=== PATIENT | female | born 1965 | race Caucasian/White ===

== ENCOUNTER → 2017-05-04 15:52 | Outpatient (CLI) | payer OTHER, SELFPAY ==
[2017-05-04 18:12] LABS: Absolute Lymphocyte Count 2.91 X10^3/ul (0.83-4.51); Absolute Neutrophil Count 4.2 X10^3/uL (2.0-7.7); Basophil# 0.02 X10^3/uL; Basophil% 0.3 % (0-1); Eosinophil# 0.17 X10^3/uL; Eosinophils% 2.1 % (0-5); Hemoglobin 14.6 g/dl (12.0-15.0); Lymphocyte # 2.91 X10^3/ul (4.0); Lymphocyte % 36.4 % (19-41); Mean Corp Hgb Conc 33.2 g/gl (32-36); Mean Corpuscular Hgb 30.6 pg (27.0-32.0); Mean Corpuscular Volume 92.2 fL (81-99); Mean Platelet Vol. 11.5 fl (6.2-12.0); Monocyte# 0.66 X10^3/uL; Monocyte% 8.3 % (0-10); Neutrophil # 4.21 X10^3/uL (2.7-7.7); Neutrophil % 52.6 % (47-70); Platelet Count 248 K/mm3 (150-450); RBC Distribution Width CV 13.3 % (11.6-14.6); RBC Distribution Width SD 44.3 fl (35.1-43.9); Red Blood Count 4.77 M/mm3 (4.2-5.4)
[2017-05-04 18:17] LABS: POSITIVE COUNT NO; POSITIVE DIFFERENTIAL NO; POSITIVE MORPHOLOGY NO
[2017-05-04 18:34] LABS: Anion Gap 8 (5-15); BUN 11 mg/dL (7-18); BUN/Creat Ratio 11.3 RATIO (10-20); Calcium,Total 8.9 mg/dL (8.5-10.1); Chloride 101 mmol/L (98-107); Creatinine, Serum 0.97 mg/dL (0.55-1.02); EST Glomerular Filtration Rate 65 mL/min (>60); Est Glom Filt Rate - Afr Amer 78 mL/min (>60); Glucose 99 mg/dL (74-106); Potassium 3.6 mmol/L (3.5-5.1); Sodium Level 137 mmol/L (136-145); Thyroid Stim Hormone (TSH) 1.23 uIU/mL (0.358-3.74)
== END ==
PROVIDERS: Visit Provider Family Medicine
DX: I10 Essential (primary) hypertension (principal); F32.9 Major depressive disorder, single episode, unspecified
CPT/HCPCS: 36415; 80048; 84443; 85025

== ENCOUNTER → 2017-11-25 16:44 | Outpatient (CLI) | payer OTHER, SELFPAY ==
[2017-11-25 17:48] LABS: Absolute Lymphocyte Count 3.14 X10^3/ul (0.83-4.51); Absolute Neutrophil Count 4.3 X10^3/uL (2.0-7.7); Basophil# 0.03 X10^3/uL; Basophil% 0.4 % (0-1); Eosinophil# 0.23 X10^3/uL; Eosinophils% 2.8 % (0-5); Hematocrit 40.9 % (37-47); Hemoglobin 13.8 g/dl (12.0-15.0); Lymphocyte # 3.14 X10^3/ul (4.0); Lymphocyte % 37.9 % (19-41); Mean Corp Hgb Conc 33.7 g/gl (32-36); Mean Corpuscular Hgb 30.7 pg (27.0-32.0); Mean Corpuscular Volume 91.1 fL (81-99); Mean Platelet Vol. 11.1 fl (6.2-12.0); Monocyte# 0.57 X10^3/uL; Monocyte% 6.9 % (0-10); Neutrophil % 51.8 % (47-70); Platelet Count 243 K/mm3 (150-450); RBC Distribution Width CV 13.2 % (11.6-14.6); Red Blood Count 4.49 M/mm3 (4.2-5.4); White Blood Count 8.3 K/mm3 (4.4-11.0)
[2017-11-25 17:50] LABS: POSITIVE COUNT NO; POSITIVE DIFFERENTIAL NO; POSITIVE MORPHOLOGY NO
[2017-11-25 18:01] LABS: AST(SGOT) 16 U/L (15-37); Alanine Aminotransfer ALT/SGPT 27 U/L (13-56); Albumin, Serum 3.8 g/dL (3.2-5.0); Alkaline Phosphatase 105 U/L (45-117); Anion Gap 11 (5-15); BUN 15 mg/dL (7-18); BUN/Creat Ratio 17.9 RATIO (10-20); Calcium,Total 8.8 mg/dL (8.5-10.1); Chloride 101 mmol/L (98-107); Creatinine, Serum 0.84 mg/dL (0.55-1.02); EST Glomerular Filtration Rate 77 mL/min (>60); Est Glom Filt Rate - Afr Amer 93 mL/min (>60); Globulin 3.8 g/dL (2.2-4.2); Glucose 82 mg/dL (74-106); Potassium 3.3 mmol/L (3.5-5.1); Protein, Total 7.6 g/dL (6.4-8.2); Sodium Level 137 mmol/L (136-145); Thyroid Stim Hormone (TSH) 1.65 uIU/mL (0.358-3.74)
== END ==
PROVIDERS: Family Provider Family Medicine; PCP Family Medicine; Visit Provider Family Medicine
DX: R53.81 Other malaise (principal); R53.83 Other fatigue
CPT/HCPCS: 36415; 80053; 84443; 85025

== ENCOUNTER → 2018-08-10 | Outpatient (CLI) | payer OTHER, SELFPAY ==
[2016-06-16 10:06] VITALS: BMI 34.0
--- NOTE | 2018-08-10 17:03 | RAD_ITS ---
HISTORY: shoulder pain x 1 month Exam: Right Shoulder COMPARISON: CT scan of the chest was performed on June 16, 2016. The CT scan of the chest barely demonstrates the left glenohumeral joint. FINDINGS: # of images incl. paperwork: 4 XR Shoulder Min 2 Views: Osteophytic spurring is present on the humeral head. The humeral head is well-positioned within the glenoid fossa. No fracture or subluxation. The acromioclavicular joint is slightly widened with some osteophytes. The adjacent chest is unremarkable. RAD/Shoulder min 2 Views IMPRESSION: Arthritis to the left shoulder. Slight widening to the left acromioclavicular joint could be due to ligamentous injury. at 0227 Reported and signed by: Heber Hernandez MD Electronically Signed: Heber Hernandez MD at 2:26 EDT Tel , Service support ,
== END | disposition home or self-care (01) ==
PROVIDERS: Family Provider Family Medicine; PCP Family Medicine; Referring Provider Family Medicine; Visit Provider Family Medicine
DX: M25.512 Pain in left shoulder (principal)
CPT/HCPCS: 73030

== ENCOUNTER 2018-09-10 07:30 | Outpatient (RCR) | payer OTHER, SELFPAY ==
--- NOTE | 2018-08-13 14:53 | HP.PTEVAL_ITS ---
Patient's Visit Information RADHA BINGHAM is a 52 year old F referred to Physical Therapy by Naye Baldwin MD with a diagnosis of LEFT SHOULDER PAIN. Date of Evaluation: 08/13/18 Physical Therapist: Steven Salcido, PT, Cert MDT, OCS - Visit Plan Frequency: 2x /Week Duration: 4 Weeks Plan: PT INTERVENTIONS MODALITIES FOR PAIN RELEIVE MOD IRRITABILITY,GRADED STRENGTHENING RTC/SCAPULAR,POSTURAL EX'S,MANUAL THERAPY G-H/SCAPULAR - Subjective Findings: This 52 y/o female presents to physical therapy with left shoulder sprain. Patient has had left shoulder pain since about month weeding in flower beds. Patient paion located lateral deltoid region. Symptoms sharp AC region otherwise ache lateral deltoid. Patient is worse with ADL'S activities ,overhead activies above 90 degrees,self hygine. Symptoms can affect sleeping. Patient denies parathesai/tingling. Patie had x-ray OA and osteophyetes. Patient symptoms affects QOL . 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 SOCIAL: single - Pain Left Shoulder Pain Intensity (Out of 10): 7 Pain Intensity Range: 10 Comment: movement - Objective POSTURE: mild foward posture. PALAPTION: AC jont region ,lats insertion. NEURO: intact. AROM: shoulder flexion 140 degrees,abd 135 degrees pain ER ,90 degrees,IR L1. PROM: shoulder flexion/abd 155 pain at ER. MMT: infraspinatous/supraspinatous 4-5/ pain ,subscapularis 4/5,deltoid aterior 4- /5,lateral 3+/5 pain - Special Tests L Shoulder External Rotation Lag Test - RC Tear: Negative L Shoulder Supine Impingement Test - RC Tear: Negative L Shoulder Lift Off Test - Subscapular Tear: Negative L Shoulder Drop Sign - IS Test: Negative L Shoulder Empty Can - SS: Positive L Shoulder Belly Press - SupScap: Positive L Shoulder Neer - Impingement: Positive L Shoulder Garvin Sahil - Impingement: Positive - Goals Goal 1:: Independant with HEP Goal Time Frame: 4-6 Weeks Goal 2:: Patient to improve posture for ADL'S Goal Time Frame: 4-6 Weeks Goal 3:: Patient decrease pain left shoulder by 50% or greater to improve function with ADL'S Goal Time Frame: 4-6 Weeks Goal 4:: Patient to increase AROM shoulder WFL with less pain for ADL'S Goal Time Frame: 4-6 Weeks Goal 5:: Patient increase strength RTC and deltoide by 4/5 to improve function Goal Time Frame: 4-6 Weeks Goal 6:: Patient to improve quick dash by 5-10 points to improve QOL. Goal Time Frame: 4-6 Weeks - Rehabilitation Potential Physical Therapy Diagnosis: This patient has left signs of impingement with RTC tendonesis with pain decrease ROM,strength impairs ADL'S and housework tasks thus benifit from skilled PT Rehabilitation Potential: Good - Anticipated Interventions Patient/Client Instruction: Educate patient on: Condition, Plan of Care For the Purpose of:: To decrease pain, To increase ROM, To improve nutrient delivery to tissue, To increase oxygenation perfusion, To improve muscle performance and motor function, To improve ability to perform ADL's, To increase tolerance to activity/condition/position, To improve ability of physical actions for home/community/work/leisure, To improve gait and locomotor functions, To decrease soft tissue restriction, To increase flexibility/ROM, To reduce risk of recurrence, To improve ability to perform tasks related to life management Therapeutic Exercise to Include: Strength training, Postural training, Flexibilty training, Active ROM, Scapular Strength/Stabilization Comment: RTC For the Purpose of:: To decrease pain, To increase ROM, To improve muscle performance and motor function, To improve ability to perform ADL's, To increase tolerance to activity/condition/position, To improve ability of physical actions for home/community/work/leisure, To improve health of tissue, To decrease soft tissue restriction, To increase flexibility/ROM, To reduce risk of recurrence Manual Therapy Techniques to Include: Mobilization, Soft tissue mobilization For the Purpose of:: To decrease pain, To decrease swelling/inflammation, To increase ROM, To improve nutrient delivery to tissue, To increase oxygenation perfusion, To improve health of tissue, To decrease soft tissue restriction TENS: Yes IF ES: Yes Cryotherapy (ice pack, ice massage): Yes Thermo therapy (hot pack): Yes Ultrasound (thermal/non thermal): Yes For the Purpose of:: To decrease pain, To decrease swelling/inflammation, To increase ROM, To improve nutrient delivery to tissue, To increase oxygenation perfusion, To improve health of tissue, To decrease soft tissue restriction Thank you for the opportunity to evaluate your patient. For Medicare and Medicare HMO plans, please review the plan of care and approve it. It will need to be FAXED BACK to us at [phone] for Medicare purposes. For Medicare only, by signing this I certify the plan of care. Please let me know if there are questions or concerns regarding this plan of care. Physician Signature: Date:
--- NOTE | 2018-10-26 10:26 | HP.PTDCSUM ---
HP - PT D/C Summary It has been my pleasure to treat RADHA BINGHAM under orders from Naye Baldwin MD, for the diagnosis of LEFT SHOULDER PAIN for a total of 8 visit(s). Discharge Date: Please see the following information for a summary of their discharge status. - Subjective Subjective: Doing okay ..,min pain - Pain Left Shoulder Pain Intensity (Out of 10): 1 - Overall Improvement % Improvement: 80 - Objective Objective/Function: POSTURE: mild foward posture. AROM: flexion/abd 160 degrees o pain ,ER 90. MMT: RTC -supraspinatous 4/5 mild pain,especially deltoid 4-/5 mild pain. - impingement - Goals Goal 1:: Independant with HEP Goal 2:: Patient to improve posture for ADL'S Goal 3:: Patient decrease pain left shoulder by 50% or greater to improve function with ADL'S Goal 4:: Patient to increase AROM shoulder WFL with less pain for ADL'S Goal 5:: Patient increase strength RTC and deltoide by 4/5 to improve function Goal 6:: Patient to improve quick dash by 5-10 points to improve QOL. - Plan Plan: RECHECK IN 2 WEEKS. PROGRESSING WELL WITH AROM AND STRENGTH. DOING WELL WITH GOALS - D/C Information If there are questions or concerns regarding this patient's physical therapy, please feel free to call me at [phone]. Thank you for the referral of this patient. Sincerely, Steven Salcido, PT, Cert MDT, OCS
== END 2018-09-10 19:00 | disposition home or self-care (01) ==
LOC: PT 07:30
PROVIDERS: Family Provider Family Medicine; PCP Family Medicine; Referring Provider Family Medicine; Visit Provider Family Medicine
DX: S46.912D Strain of unspecified muscle, fascia and tendon at shoulder and upper arm level, left arm, subsequent encounter (principal)
CPT/HCPCS: 97014; 97035; 97110; 97162; G0283

== ENCOUNTER → 2019-04-22 09:45 | Outpatient (CLI) | payer OTHER, SELFPAY ==
[2016-06-16 10:06] VITALS: BMI 34.0
[2019-04-22 12:55] LABS: Anion Gap 7 (5-15); BUN 13 mg/dL (7-18); BUN/Creat Ratio 15.4 RATIO (10-20); Calcium,Total 9.4 mg/dL (8.5-10.1); Chloride 101 mmol/L (98-107); Creatinine, Serum 0.85 mg/dL (0.55-1.02); EST Glomerular Filtration Rate 75 mL/min (>60); Est Glom Filt Rate - Afr Amer 91 mL/min (>60); Glucose 96 mg/dL (74-106); Potassium 3.6 mmol/L (3.5-5.1); Sodium Level 137 mmol/L (136-145)
== END ==
PROVIDERS: PCP Family Medicine; Visit Provider Family Medicine
DX: I10 Essential (primary) hypertension (principal)
CPT/HCPCS: 36415; 80048

== ENCOUNTER → 2020-04-30 10:14 | Outpatient (CLI) | payer OTHER, SELFPAY ==
[2020-04-30 12:41] LABS: Anion Gap 8 (5-15); BUN 15 mg/dL (7-18); BUN/Creat Ratio 16.8 RATIO (10-20); Chloride 100 mmol/L (98-107); Cholesterol 260 mg/dL (200); Creatinine, Serum 0.89 mg/dL (0.55-1.02); EST Glomerular Filtration Rate 71 mL/min (>60); Est Glom Filt Rate - Afr Amer 85 mL/min (>60); Glucose 116 mg/dL (74-106); High Density Lipoprotein 53 mg/dL; Potassium 2.9 mmol/L (3.5-5.1); Sodium Level 136 mmol/L (136-145); Triglycerides 202 mg/dL; Very Low Density Lipoprotein 40 mg/dL (5-40)
== END ==
PROVIDERS: PCP Family Medicine; Referring Provider Family Medicine; Visit Provider Family Medicine
DX: I10 Essential (primary) hypertension (principal)
CPT/HCPCS: 36415; 80048; 80061

== ENCOUNTER → 2020-05-21 08:31 | Outpatient (CLI) | payer OTHER, SELFPAY ==
[2016-06-16 10:06] VITALS: BMI 34.0
[2020-05-21 10:14] LABS: Potassium 3.3 mmol/L (3.5-5.1)
== END ==
PROVIDERS: PCP Family Medicine; Referring Provider Family Medicine; Visit Provider Family Medicine
DX: E87.6 Hypokalemia (principal)
CPT/HCPCS: 36415; 84132

== ENCOUNTER → 2020-06-04 09:48 | Outpatient (CLI) | payer OTHER, SELFPAY ==
[2016-06-16 10:06] VITALS: BMI 34.0
[2020-06-04 12:53] LABS: Anion Gap 7 (5-15); BUN 14 mg/dL (7-18); BUN/Creat Ratio 15.6 RATIO (10-20); Calcium,Total 9.5 mg/dL (8.5-10.1); Chloride 100 mmol/L (98-107); EST Glomerular Filtration Rate 70 mL/min (>60); Est Glom Filt Rate - Afr Amer 85 mL/min (>60); Glucose 116 mg/dL (74-106); Potassium 3.9 mmol/L (3.5-5.1); Sodium Level 135 mmol/L (136-145)
== END ==
PROVIDERS: PCP Family Medicine; Referring Provider Family Medicine; Visit Provider Family Medicine
DX: E87.6 Hypokalemia (principal)
CPT/HCPCS: 36415; 80048

== ENCOUNTER → 2020-08-01 10:22 | Outpatient (CLI) | payer OTHER, SELFPAY ==
[2016-06-16 10:06] VITALS: BMI 34.0
--- NOTE | 2020-08-01 10:25 | BD_ITS ---
STUDY: DUAL ENERGY X-RAY ABSORPTIOMETRY / DXA REASON FOR EXAM: Female, 54 years old. V76.12ScreeningBONE DENSITY REASON FOR EXAM TECHNIQUE: Bone Mineral Density (BMD) measurements of lumbar spine and bilateral hips were obtained. COMPARISON: None. FINDINGS: Lumbar Spine (L1-L4): g/cm2 (1.191) / T-score (0.2) / Z-score (0.8) Findings are suggestive of normal bone density with a low fracture risk. Left Femur Total: g/cm2 (0.941) / T-score (-0.5) / Z-score (0.0) Left Femoral Neck: g/cm2 (0.868) / T-score (-1.2) / Z-score (-0.3) Right Femur Total: g/cm2 (0.921) / T-score (-0.7) / Z-score (-0.1) Right Femoral Neck: g/cm2 (0.868) / T-score (-1.2) / Z-score (-0.3) BD/Dexa Bone Density Study IMPRESSION: The patient is considered osteopenic as outlined below according to World Sanjiv Organization (WHO) criteria with a low fracture risk. Reference Information: The T-score is the number of standard deviations above or below the standard which is normal for young adults at their peak bone mineral density. The World Health Organization (WHO) interprets the T-scores as follows: Above -1 Normal bone density Between -1 and -2.5 Osteopenia Equal to / or below -2.5 Osteoporosis As a practical clinical guideline, osteopenia may be graded as follows: Mild -1 through -1.5 Moderate -1.6 through -2.0 Severe -2.1 through -2.4 The Z-score is the number of standard deviations above or below age-matched controls. A Z-score of less than -1.5 would be considered abnormal. References: 1. NIH Osteoporosis and Related Bone Diseases www osteo.org 2. International Society for Clinical Densitometry www iscd.org 3. National Osteoporosis Foundation www nof.org Electronically Signed: Jovany Guerrier MD at 15:44 EDT , Service support ,
--- NOTE | 2020-08-01 10:43 | BI_ITS ---
MAMMOGRAPHY - BILATERAL SCREENING REASON FOR EXAM: Female, 54 years old. Routine annual screening examination. PERTINENT HISTORY: Non-contributory. TECHNIQUE: Digital bilateral breast kamran (3D mammographic acquisition) in the CC and MLO projections. 2-D mediolateral oblique (MLO) and craniocaudad (CC) views of both breasts were obtained. CAD: Full Field Digital Mammography with Computer Added Detection was performed. COMPARISON: Comparison is made with prior study dated 10/26/2015 and 09/02/2012. FINDINGS: Breast Composition: There are scattered areas of fibroglandular density. There are no dominant masses or suspicious calcifications. No other significant abnormalities are identified. There has been no significant change since the prior study. BI/SCREENING MAMM (CAD), BILAT IMPRESSION: Stable bilateral screening mammogram. Yearly follow-up mammogram recommended. (A) ASSESSMENT CATEGORY: BIRADS Category 1: Negative. A letter regarding these results will be sent to the patient by the facility within 30 days. Approximately 10% of breast cancers are not detected by mammography. A normal mammogram should not delay biopsy of a clinically suspicious abnormality. [id number] Electronically Signed: Jovany Guerrier MD at 11:40 EDT , Service support ,
== END ==
PROVIDERS: PCP Family Medicine; Referring Provider Family Medicine; Visit Provider Family Medicine
DX: Z12.31 Encounter for screening mammogram for malignant neoplasm of breast (principal); N95.9 Unspecified menopausal and perimenopausal disorder
CPT/HCPCS: 77067; 77080

== ENCOUNTER → 2020-10-22 08:11 | Outpatient (CLI) | payer OTHER, SELFPAY ==
[2020-10-22 10:22] LABS: Anion Gap 7 (5-15); BUN 14 mg/dL (7-18); BUN/Creat Ratio 16.2 RATIO (10-20); Chloride 102 mmol/L (98-107); Creatinine, Serum 0.87 mg/dL (0.55-1.02); EST Glomerular Filtration Rate 73 mL/min (>60); Est Glom Filt Rate - Afr Amer 88 mL/min (>60); Glucose 110 mg/dL (74-106); Potassium 3.7 mmol/L (3.5-5.1); Sodium Level 137 mmol/L (136-145)
== END ==
PROVIDERS: PCP Family Medicine; Referring Provider Family Medicine; Visit Provider Family Medicine
DX: I10 Essential (primary) hypertension (principal)
CPT/HCPCS: 36415; 80048

== ENCOUNTER → 2020-10-24 07:50 | Outpatient (CLI) | payer OTHER, SELFPAY ==
[2020-10-24 10:42] LABS: AST(SGOT) 16 U/L (15-37); Alanine Aminotransfer ALT/SGPT 26 U/L (13-56); Cholesterol 259 mg/dL (200); High Density Lipoprotein 51 mg/dL; Triglycerides 246 mg/dL; Very Low Density Lipoprotein 49 mg/dL (5-40)
== END ==
PROVIDERS: PCP Family Medicine; Referring Provider Family Medicine; Visit Provider Family Medicine
DX: E78.00 Pure hypercholesterolemia, unspecified (principal)
CPT/HCPCS: 36415; 80061; 84450; 84460

== ENCOUNTER → 2021-01-24 07:07 | Outpatient (CLI) | payer OTHER, SELFPAY ==
[2021-01-24 10:55] LABS: AST(SGOT) 15 U/L (15-37); Alanine Aminotransfer ALT/SGPT 28 U/L (13-56); Cholesterol 152 mg/dL (200); High Density Lipoprotein 55 mg/dL; Triglycerides 158 mg/dL; Very Low Density Lipoprotein 32 mg/dL (5-40)
== END ==
PROVIDERS: PCP Family Medicine; Referring Provider Family Medicine; Visit Provider Family Medicine
DX: E78.2 Mixed hyperlipidemia (principal)
CPT/HCPCS: 36415; 80061; 84450; 84460

== ENCOUNTER 2021-05-01 10:31 | Outpatient (CLI) | payer OTHER, SELFPAY ==
[2021-05-01 12:35] LABS: Anion Gap 9 (5-15); BUN 17 mg/dL (7-18); BUN/Creat Ratio 20.4 RATIO (10-20); Calcium,Total 9.3 mg/dL (8.5-10.1); Chloride 101 mmol/L (98-107); Creatinine, Serum 0.83 mg/dL (0.55-1.02); EST Glomerular Filtration Rate 76 mL/min (>60); Est Glom Filt Rate - Afr Amer 92 mL/min (>60); Glucose 98 mg/dL (74-106); Potassium 3.4 mmol/L (3.5-5.1); Sodium Level 136 mmol/L (136-145)
== END 2021-05-01 23:59 | disposition home or self-care (01) ==
LOC: MFPLAB 10:32
PROVIDERS: PCP Family Medicine; Referring Provider Family Medicine; Visit Provider Family Medicine
DX: I10 Essential (primary) hypertension (principal)
CPT/HCPCS: 36415; 80048

== ENCOUNTER → 2021-08-02 | Outpatient (CLI) | payer OTHER, SELFPAY ==
--- NOTE | 2021-08-02 07:55 | BI_ITS ---
MAMMOGRAPHY - BILATERAL SCREENING REASON FOR EXAM: Female, 55 years old. Routine annual screening examination. PERTINENT HISTORY: Non-contributory. TECHNIQUE: Digital bilateral breast debbie (3D mammographic acquisition) in the CC and MLO projections. 2-D mediolateral oblique (MLO) and craniocaudad (CC) views of both breasts were obtained. CAD: Full Field Digital Mammography with Computer Added Detection was performed. COMPARISON: Mammogram from 08/01/2020, 10/26/2015, 09/02/2012, 09/02/2011. FINDINGS: Breast Composition: There are scattered areas of fibroglandular density. There is a 8 mm rounded mass, with partially obscured borders adjacent to a benign-appearing calcification in the right upper central breast, middle depth, approximately 5 cm posterior to nipple. Further assessment with spot compression views and ultrasound is recommended. No other significant abnormalities are identified. BI/SCRN MAMM (CAD)W/DEBBIE BILAT IMPRESSION: Further imaging evaluation recommended, as described above. (E) Recall Side: Right Breast ASSESSMENT CATEGORY: BIRADS Category 0: Incomplete. Need additional imaging evaluation. A letter regarding these results will be sent to the patient by the facility within 30 days. Approximately 10% of breast cancers are not detected by mammography. A normal mammogram should not delay biopsy of a clinically suspicious abnormality. [id number] Electronically Signed: Donnell Heath, at 15:42 EDT ,
== END | disposition home or self-care (01) ==
LOC: OPBI 07:54
PROVIDERS: PCP Family Medicine; Referring Provider Family Medicine; Visit Provider Family Medicine
DX: Z12.31 Encounter for screening mammogram for malignant neoplasm of breast (principal)
CPT/HCPCS: 77063; 77067

== ENCOUNTER → 2021-08-07 | Outpatient (CLI) | payer OTHER, SELFPAY ==
--- NOTE | 2021-08-07 09:14 | BI_ITS ---
MAMMOGRAPHY - UNILATERAL DIAGNOSTIC: RIGHT BREAST REASON FOR EXAM: Female, 55 years old. Abnormal screening mammogram. PERTINENT HISTORY: Non-contributory. TECHNIQUE: Compression spot views in the mediolateral oblique and craniocaudad views were obtained. CAD: Full Field Digital Mammography with Computer Added Detection was performed. COMPARISON: Comparison is made with prior study dated 08/02/2021. FINDINGS: Breast Composition: There are scattered areas of fibroglandular density. Stable 7 mm nodule with calcification within the. Correlation with ultrasound is recommended. No other significant abnormalities are identified. BI/DIAG MAMM W/CAD, UNILAT IMPRESSION: Stable unilateral diagnostic mammogram. Correlation with targeted ultrasound is recommended. ASSESSMENT CATEGORY: BIRADS Category 0: Incomplete. Need additional imaging evaluation. A letter regarding these results will be sent to the patient by the facility within 30 days. Approximately 10% of breast cancers are not detected by mammography. A normal mammogram should not delay biopsy of a clinically suspicious abnormality. Electronically Signed: Jovany Guerrier MD at 10:12 EDT ,
--- NOTE | 2021-08-07 09:14 | US_ITS ---
STUDY: ULTRASOUND BREAST - RIGHT REASON FOR EXAM: Female, 55 years old. Abnormal screening mammogram. TECHNIQUE: Axial and longitudinal images of the RIGHT breast were performed with a high resolution ultrasound transducer. # OF IMAGES: 24 COMPARISON: Comparison is made with prior mammogram done earlier today as well as prior mammogram dated 08/02/2021. FINDINGS: RIGHT Breast: There is a 4 mm x 5 mm x 3 mm hypoechoic solid nodule at the 6 o''clock position of the breast at 3 cm from nipple. A tiny calcification is seen within it. There is also evidence of a 6 mm x 6 mm x 4 mm cyst at the 12 o''clock position of the breast at 2 cm from nipple. US/Breast Limited Unilateral IMPRESSION: 4 mm x 5 mm x 3 mm hypoechoic solid nodule at the 6 o''clock position of the breast at 3 cm from nipple with focal calcific deposit. 6 mm x 6 mm x 4 mm cyst at the 12 o''clock position of the breast at 2 cm from the nipple. ASSESSMENT CATEGORY: BIRADS Category 2: Benign. A letter regarding these results will be sent to the patient by the facility within 30 days. Electronically Signed: Jovany Guerrier MD at 10:16 EDT ,
== END | disposition home or self-care (01) ==
LOC: OPBI 09:10
PROVIDERS: PCP Family Medicine; Visit Provider Family Medicine
DX: R92.1 Mammographic calcification found on diagnostic imaging of breast (principal); R92.2 Inconclusive mammogram
CPT/HCPCS: 76642; 77065

== ENCOUNTER → 2021-11-01 | Outpatient (CLI) | payer OTHER, SELFPAY ==
[2021-11-01 12:01] LABS: Absolute Lymphocyte Count 2.47 X10^3/uL (0.83-4.51); Absolute Neutrophil Count 4.1 X10^3/uL (2.0-7.7); Basophil# 0.04 X10^3/uL; Basophil% 0.6 % (0-1); Eosinophil# 0.14 X10^3/uL; Eosinophils% 1.9 % (0-5); Erythrocyte Sedimentation Rate 15 mm/hr (0-30); Hematocrit 42.7 % (37-47); Hemoglobin 14.1 g/dL (12.0-15.0); Lymphocyte # 2.47 X10^3/ul (0.83-4.51); Lymphocyte % 34.2 % (19-41); Mean Corpuscular Hgb 29.9 pg (27.0-32.0); Mean Corpuscular Volume 90.7 fL (81-99); Mean Platelet Vol. 11.3 fl (6.2-12.0); Monocyte# 0.47 X10^3/uL; Monocyte% 6.5 % (0-10); NRBC Flagged by Analyzer 0 % (0-5); Neutrophil # 4.07 X10^3/uL (2.7-7.7); Neutrophil % 56.4 % (47-70); Platelet Count 242 K/mm3 (150-450); RBC Distribution Width SD 42.9 fl (35.1-43.9); Red Blood Count 4.71 M/mm3 (4.2-5.4); White Blood Count 7.2 K/mm3 (4.4-11.0)
[2021-11-01 12:30] LABS: AST(SGOT) 19 U/L (15-37); Alanine Aminotransfer ALT/SGPT 29 U/L (13-56); Albumin, Serum 3.9 g/dL (3.2-5.0); Alkaline Phosphatase 100 U/L (45-117); Anion Gap 9 (5-15); BUN 15 mg/dL (7-18); BUN/Creat Ratio 17.2 RATIO (10-20); Calcium,Total 9.1 mg/dL (8.5-10.1); Chloride 102 mmol/L (98-107); Cholesterol 150 mg/dL (200); Creatinine, Serum 0.87 mg/dL (0.55-1.02); EST Glomerular Filtration Rate 72 mL/min (>60); Est Glom Filt Rate - Afr Amer 87 mL/min (>60); Globulin 3.8 g/dL (2.2-4.2); Glucose 90 mg/dL (74-106); High Density Lipoprotein 54 mg/dL; Potassium 3.7 mmol/L (3.5-5.1); Protein, Total 7.7 g/dL (6.4-8.2); Sodium Level 138 mmol/L (136-145); Thyroid Stim Hormone (TSH) 1.23 uIU/mL (0.358-3.74); Triglycerides 235 mg/dL; Very Low Density Lipoprotein 47 mg/dL (5-40)
== END | disposition home or self-care (01) ==
LOC: MFPLAB 09:54
PROVIDERS: PCP Family Medicine; Referring Provider Family Medicine; Visit Provider Family Medicine
DX: R53.81 Other malaise (principal); I10 Essential (primary) hypertension
CPT/HCPCS: 36415; 80053; 80061; 84443; 85025; 85652

== ENCOUNTER 2021-12-20 12:00 | Emergency (ER) | payer OTHER, SELFPAY ==
[2021-12-20 12:02] VITALS: BP 134/97; PULSE 92; RESP 18; TEMP 35.9; O2SAT 98; BMI 33.0
--- NOTE | 2021-12-20 12:17 | CT_ITS ---
STUDY: CT BRAIN WITHOUT CONTRAST REASON FOR EXAM: Female, 56 years old. History of fall RADIATION DOSAGE (If Supplied By Facility): CTDIvol = ( 44.99 ) mGy, DLP = ( 812.98 ) mGycm TECHNIQUE: Transaxial CT imaging of the brain was performed without administration of intravenous contrast material. Individualized dose optimization techniques were used for this CT. COMPARISON: No relevant priors. FINDINGS: Normal soft tissue structures. Normal calvarium. Normal size ventricles and extra-axial spaces for the patient''s age. Normal white matter tracts of the cerebral hemispheres. Normal basal ganglia and thalami. Normal brainstem. Normal cerebellum. There is no intracranial hemorrhage. There are no findings of an acute ischemic infarction. Normal visualized paranasal sinuses. CT/Brain/Head without Contrast IMPRESSION: Normal unenhanced CT scan of the brain. Electronically Signed: Jovany Guerrier MD at 12:50 EDT ,
--- NOTE | 2021-12-20 12:17 | CT_ITS ---
STUDY: CT FACIAL BONES WITHOUT CONTRAST REASON FOR EXAM: Female, 56 years old. Injury due to a fall. RADIATION DOSAGE (If Supplied By Facility): CTDIvol = ( 29.38 ) mGy, DLP = ( 525.42 ) mGycm TECHNIQUE: The patient was scanned in a multi detector CT scanner. Sagittal and coronal images were reconstructed. Individualized dose optimization techniques were used for this CT. COMPARISON: None. FINDINGS: Normal soft tissue structures. Normal orbital braden and orbital contents. Normal nasal bones and anterior nasal spine. Normal facial bones. There is no demonstrated fracture. Normal visualized paranasal sinuses. CT/Sinus/Facial Bone IMPRESSION: Normal unenhanced CT of the facial bones. Electronically Signed: Jovany Guerrier MD at 12:52 EDT ,
--- NOTE | 2021-12-20 12:17 | ED.VIS.FALL ---
HPI HPI - Fall History of Present Illness Chief Complaint: Fall Informant: patient Occured/Mechanism Occurred: Today Pain/Injury Pain Location: head, face, upper extremity and lower extremity Quality of Pain: Aching Current Severity: Mild Maximum Severity: Moderate Associated Symptoms Associated Symptoms: Negative for Loss of consciousness Narrative Narrative: Patient presents after fall at home. She was getting her mail and tripped on the curb falling forward. She does not believe she lost consciousness. She is abrasions to the face. She states her teeth feel sore but they did not feel loose. She has some mild abrasions to the anterior knees with some bruising and tenderness to the thenar eminence of both hands. She took ibuprofen prior to arrival. [facility] Medical History Depression HLD (hyperlipidemia) HTN (hypertension) Home Medications amlodipine 2.5 mg tablet 2.5 mg PO QHS 06/20/15 [History Last Taken Unknown] bupropion HCl 100 mg tablet 200 mg PO QHS 06/20/15 [History Last Taken Unknown] esterified estrogens-methyltestosterone 0.625 mg-1.25 mg tablet 1 tab PO DAILY 06/20/15 [History Last Taken Unknown] hydrochlorothiazide 25 mg tablet 25 mg PO DAILY 06/20/15 [History Last Taken Unknown] esbvwwzxnwor-Tx-yatr-minerals (Multiple Vitamin, Womens tablet) 1 ea PO DAILY 06/20/15 [History Last Taken Unknown] sertraline 100 mg tablet 200 mg PO QHS 06/20/15 [History Last Taken Unknown] cetirizine 10 mg capsule (Zyrtec) 10 mg PO DAILY 05/30/16 [History Last Taken Unknown] hydrocodone-acetaminophen 5-325mg 5mg-325mg 1 - 2 tab PO Q6H PRN PRN Mild-Mod Pain (1-5/10) ##60 06/10/16 [Rx Last Taken Unknown] oxycodone 10 mg tablet,crush resistant,extended release 12 hr (OxyContin) 10 mg PO BID ##30 06/10/16 [Rx Last Taken Unknown] ondansetron HCl 4 mg tablet (Zofran) 4 - 8 mg PO Q6H PRN PRN Nausea ##30 06/11/16 [Rx Last Taken Unknown] amoxicillin 875 mg-potassium clavulanate 125 mg tablet 1 tab PO BID 06/16/16 [History Last Taken Unknown] fluconazole 100 mg tablet 100 mg PO DAILY 06/16/16 [History Last Taken Unknown] fluconazole 150 mg tablet (Diflucan) 150 mg PO Q3D 2 doses #2 tabs 02/26/21 [Rx Last Taken Unknown] Allergy/AdvReac Type Severity Reaction Status Date / Time oxycodone HCl [From Percocet] AdvReac Nausea Verified 12/20/21 12:01 Surgical History H/O: hysterectomy History of total bilateral knee replacement Hx of appendectomy Status post total right knee replacement Social History Smoking Status: Never smoker ROS ROS ED Constitutional Constitutional ED: Denies chills or fever(s) Eyes Eyes: Denies change in vision or discharge from eye(s) ENT ENT ED: Reports other Details: Facial abrasions and dental pain ; Denies discharge from eye(s), rhinorrhea or sore throat Cardiovascular Cardiovascular: Denies chest pain or palpitations Respiratory/Chest Respiratory/Chest: Denies cough or dyspnea Gastrointestinal Gastrointestinal: Denies abdominal pain, diarrhea, nausea or vomiting Genitourinary Genitourinary ED: Denies dysuria Musculoskeletal Musculoskeletal: Reports extremity pain; Denies back pain Integumentary Reports Abrasions; Denies rash Neurologic Neurologic: Reports headache(s); Denies weakness Allergic/Immunologic Allergic/Immunologic ED: Denies lip swelling or urticaria EXAM Physical Exam Const Vital Signs: 12/20/21 12:02 12/20/21 12:11 Temperature 96.7 F L Temperature Source Temporal Pulse Rate 92 Respiratory Rate 18 Respiratory Effort Normal Non-Labored Respiratory Depth Normal Respiratory Pattern Normal Blood Pressure 134/97 H Blood Pressure Mean 109 Pulse Ox 98 Oxygen Delivery Method Room Air Positive well nourished and well developed General Appearance ED: well developed HEENT Reports normocephalic HEENT Narrative: Abrasions inferolateral to the left eye. Extraocular movements are fully intact no bony tenderness noted. Small laceration noted to the inner surface of the left upper lip with mild edema. Teeth are stable. No C-spine tenderness. Eyes PERRL and EOMs intact bilaterally Neck supple Chest Wall inspection of chest normal and palpation of chest normal Resp normal respiratory effort and clear to auscultation bilaterally Cardio regular rate and regular rhythm GI normal to inspection, nondistended, normoactive bowel sounds Palpation: soft Extremity Extremity Narrative: Mild tenderness to the thenar eminence of both hands with no significant edema or abrasions. Full range of motion without difficulty. Superficial abrasion noted to the left anterior knee with underlying hematoma. Small hematoma/ecchymosis to the anterior right knee. No bony tenderness to the lower extremities with good range of motion. Neuro oriented x3 and no sensory deficits noted Sensorium / Orientation: alert Motor Exam: strength 5/5 throughout Psych mental status grossly normal Skin Skin Narrative: Abrasions as noted above. MDM MDM MDM Narrative Medical decision making narrative: Patient sent for CT scan of the head and facial bones. Radiography Diagnostic Testing: Clinical Impression(s) from Imaging Studies Brain CT 12/20/21 12:17 IMPRESSION: Normal unenhanced CT scan of the brain. Electronically Signed: Jovany Guerrier MD at 12:50 EDT , Facial/Sinus 12/20/21 12:17 IMPRESSION: Normal unenhanced CT of the facial bones. Electronically Signed: Jovany Guerrier MD at 12:52 EDT , Treatment and Re-Evaluation Narrative: CT scan of the head and facial bones reveal no acute fracture. No intracranial bleeding or edema noted. Test results are discussed with the patient. She will continue Tylenol or ibuprofen at home for pain. She does have a small laceration on the inner surface of her left upper lip. We discussed keeping this area clean but we do not suture intraoral injuries due to concern for infection. She voices understanding. We are attempting to contact the patient's primary care office to verify her last tetanus update. This will be done prior to the patient's discharge. Discharge Plan Triage Chief Complaint: Fall ED Provider: Hannah Appiah Dx/Rx/DC Orders Clinical Impression: Fall, Contusion of face, Intraoral laceration, CHI (closed head injury), Contusion, upper extremity, Contusion of lower extremity Instructions: ED Facial Contusion, ED Head Injury (Adult) Prescriptions: No Action fluconazole [Diflucan] 150 mg tablet 150 mg PO Q3D Qty: 2 0RF Rx Instructions: may repeat second dose 72 hrs after first dose if symptoms persist estrogens-methyltestosterone 1 EACH tablet 1 tab PO DAILY Label Comments: hormone sertraline 100 MG tablet 200 mg PO QHS Label Comments: mood amlodipine 2.5 MG tablet 2.5 mg PO QHS Label Comments: high blood pressure bupropion HCl 100 MG tablet 200 mg PO QHS Label Comments: mood hydrochlorothiazide 25 MG tablet 25 mg PO DAILY Label Comments: high blood pressure yypmumuxjcua-Kk-qsxo-minerals [Multiple Vitamin, Womens] 1 EACH tablet 1 ea PO DAILY Label Comments: supplement cetirizine [Zyrtec] 10 MG capsule 10 mg PO DAILY hydrocodone-acetaminophen 1 TABLET tablet 1 - 2 tab PO Q6H PRN PRN (Reason: Mild-Mod Pain (1-5)) Qty: 60 0RF oxycodone [OxyContin] 10 MG tablet 10 mg PO BID Qty: 30 0RF ondansetron HCl [Zofran] 4 MG tablet 4 - 8 mg PO Q6H PRN PRN (Reason: Nausea) Qty: 30 0RF fluconazole 100 MG tablet 100 mg PO DAILY Label Comments: amoxicillin-pot clavulanate 1 EACH tablet 1 tab PO BID Label Comments: Primary Care Provider: Naye Baldwin Referrals: Naye Baldwin MD [Primary Care Provider] - 1 Week Disposition Disposition: Home, Self Care
[2021-12-20] MEDS: Acetaminophen 500 MG Tablet 1000 MG PO (13:18)
[2021-12-20] MEDS: Diphth,Pertuss(Acell),Tet Vac 0.5 ML Vial IM (14:01)
[2021-12-20 14:19] VITALS: BP 120/81; PULSE 64; RESP 14; O2SAT 100
== END 2021-12-20 14:19 | disposition home or self-care (01) ==
PROVIDERS: Emergency Provider Emergency Medicine; PCP Family Medicine; Visit Provider Emergency Medicine
DX: S00.83XA Contusion of other part of head, initial encounter (principal); W10.1XXA Fall (on)(from) sidewalk curb, initial encounter; E78.5 Hyperlipidemia, unspecified; S80.211A Abrasion, right knee, initial encounter; I10 Essential (primary) hypertension; S80.212A Abrasion, left knee, initial encounter; F32.A Depression, unspecified; S09.90XA Unspecified injury of head, initial encounter; Z23 Encounter for immunization
CPT/HCPCS: 70450; 70486; 90471; 90715; 99283

== ENCOUNTER → 2022-05-05 | Outpatient (CLI) | payer OTHER, SELFPAY ==
[2022-05-05 12:35] LABS: Anion Gap 9 (5-15); BUN 14 mg/dL (7-18); BUN/Creat Ratio 17.1 RATIO (10-20); Calcium,Total 9.4 mg/dL (8.5-10.1); Chloride 101 mmol/L (98-107); Creatinine, Serum 0.82 mg/dL (0.55-1.02); EST Glomerular Filtration Rate 77 mL/min (>60); Est Glom Filt Rate - Afr Amer 94 mL/min (>60); Glucose 90 mg/dL (74-106); Potassium 3.3 mmol/L (3.5-5.1); Sodium Level 138 mmol/L (136-145)
== END | disposition home or self-care (01) ==
LOC: MFPLAB 10:19
PROVIDERS: PCP Family Medicine; Visit Provider Family Medicine
DX: I10 Essential (primary) hypertension (principal)
CPT/HCPCS: 36415; 80048

== ENCOUNTER → 2022-08-04 | Outpatient (CLI) | payer OTHER, SELFPAY ==
--- NOTE | 2022-08-04 07:46 | BI_ITS ---
MAMMOGRAPHY - BILATERAL SCREENING REASON FOR EXAM: Female, 56 years old. Routine annual screening examination. PERTINENT HISTORY: Non-contributory. TECHNIQUE: Digital bilateral breast debbie (3D mammographic acquisition) in the CC and MLO projections. 2-D mediolateral oblique (MLO) and craniocaudad (CC) views of both breasts were obtained. CAD: Full Field Digital Mammography with Computer Added Detection was performed. COMPARISON: Comparison is made with prior study dated August 02, 2021 and August 01, 2020 as well as right breast diagnostic mammogram dated August 07, 2021. FINDINGS: Breast Composition: There are scattered areas of fibroglandular density. There are no dominant masses or suspicious calcifications. Stable 7 mm nodule with calcification within it in the central portion of the right breast. No other significant abnormalities are identified. There has been no significant change since the prior study. BI/SCRN MAMM (CAD)W/DEBBIE BILAT IMPRESSION: Stable bilateral screening mammogram. Yearly follow-up mammogram recommended. (A) ASSESSMENT CATEGORY: BIRADS Category 2: Benign. A letter regarding these results will be sent to the patient by the facility within 30 days. Approximately 10% of breast cancers are not detected by mammography. A normal mammogram should not delay biopsy of a clinically suspicious abnormality. [id number] Electronically Signed: Jovany Guerrier MD at 8:52 EDT ,
== END | disposition home or self-care (01) ==
LOC: OPBI 07:44
PROVIDERS: PCP Family Medicine; Referring Provider Family Medicine; Visit Provider Family Medicine
DX: Z12.31 Encounter for screening mammogram for malignant neoplasm of breast (principal)
CPT/HCPCS: 77063; 77067

== ENCOUNTER → 2022-11-10 | Outpatient (CLI) | payer OTHER, SELFPAY ==
[2022-11-10 12:53] LABS: AST(SGOT) 19 U/L (15-37); Alanine Aminotransfer ALT/SGPT 27 U/L (13-56); Anion Gap 9 (5-15); BUN 13 mg/dL (7-18); BUN/Creat Ratio 14.7 RATIO (10-20); Calcium,Total 9.7 mg/dL (8.5-10.1); Chloride 105 mmol/L (98-107); Cholesterol 143 mg/dL (200); Creatinine, Serum 0.88 mg/dL (0.55-1.02); EST Glomerular Filtration Rate 71 mL/min (>60); Est Glom Filt Rate - Afr Amer 85 mL/min (>60); Glucose 97 mg/dL (74-106); High Density Lipoprotein 61 mg/dL; Potassium 4.1 mmol/L (3.5-5.1); Sodium Level 139 mmol/L (136-145); Triglycerides 154 mg/dL; Very Low Density Lipoprotein 31 mg/dL (5-40)
== END | disposition home or self-care (01) ==
LOC: MFPLAB 09:50
PROVIDERS: PCP Family Medicine; Visit Provider Family Medicine
DX: I10 Essential (primary) hypertension (principal); E78.2 Mixed hyperlipidemia
CPT/HCPCS: 36415; 80048; 80061; 84450; 84460

== ENCOUNTER 2023-06-03 08:30 | Outpatient (RCR) | payer OTHER, SELFPAY ==
--- NOTE | 2023-05-05 11:31 | HP.PTEVAL_ITS ---
Patient's Visit Information Visit Information Visit Information: RADHA BINGHAM is a 57 year old F referred to Physical Therapy by Dr. Naye Baldwin MD with a diagnosis of BACK PAIN. Date of Evaluation: 05/05/23 Physical Therapist: Steven Salcido, PT, Cert MDT, OCS Visit Plan Frequency: 2x /Week Duration: 4 Weeks Plan: PT INTERVENTIONS EDIL EX'S ,PROGRESS TO DLS ,STM - MASSAGE GUN ,POSTURAL EX'S AND MODALTIES FOR PAIN Subjective Subjective: This 57 y/o female presents to physical therapy with back . Patient has back many years. Patient 2008 fell and fracture spine . Most recently pain worse past 2 weeks ,but had a bad episode of lumbar pain tried stretches from DR. Lesly ramesh . In Jan 2023 had injections in hip left side . 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 Alleviating factors nothing. Bowel /bladder-. Coughing/sneezing + Denies paresthesia/tingling-. Plan to see Thursday. Patient sleeping okay night due to pain. Patient has had PT in past . Patient has bilateral TKA in past. Patient pain affects QOL/function. Patient goals to decrease pain. VOCATION: retired SOCIAL: single Pain Bilateral Back: Pain Intensity (Out of 10): 4 Pain Intensity Range: 10 Objective Objective: POSTURE: mild forward posture GAIT : reciprocal pattern PLAPTION: tender multifidus ,paraspinals ,erector spinalis NEURO: denies paresthesia/tingling ,reflexes L4-5,L5-S1 1/3 LUMBAR ROM: flexion min/mod loss pain ,extension min loss ,side glides right mod loss ,left min loss MMT: quads/hams 4/5 ,hip flexion 4-/5 pain right lumbar FLEXABILITY: hamstrings WFL ,piriformis WFL Special Tests L/S Slump test left side: Negative L/S Slump test right side: Negative L/S Left Straight Leg Raise: Negative L/S Right Straight Leg Raise: Negative Lumbar Standing: Flexion - Mechanical Response: No effect Lumbar Standing: Flexion - Symptoms During Testing: Increases Lumbar Standing: Flexion - Symptoms After Testing: Worse Lumbar Standing: Extension - Mechanical Response: No effect Lumbar Standing: Extension - Symptoms During Testing: Decreases Lumbar Standing: Extension - Symptoms After Testing: Better Lumbar Standing: Right Side Glides - Mechanical Response: No effect Lumbar Standing: Right Side [place] - Symptoms During Testing: Increases Lumbar Standing: Right Side [place] - Symptoms After Testing: Worse Lumbar Standing: Left Side [place] - Mechanical Response: No effect Lumbar Standing: Left Side [place] - Symptoms During Testing: No effect Lumbar Standing: Left Side [place] - Symptoms After Testing: No effect Lumbar Lying: Flexion - Mechanical Response: No effect Lumbar Lying: Flexion - Symptoms During Testing: Increases Lumbar Lying: Flexion - Symptoms After Testing: Worse Lumbar Lying: Extension - Mechanical Response: No effect Lumbar Lying: Extension - Symptoms During Testing: Decreases Lumbar Lying: Extension - Symptoms After Testing: Better Balance/Special Test Scores Oswestry Low Back Score: 28 Goals Goal 1:: I with HEP for back Goal Time Frame: 4-6 Weeks Goal 2:: Patient to demonstrate 50% improvement with increase function and less pain. Goal Time Frame: 4-6 Weeks Goal 3:: Patient to improve lumbar ROM for function of recovery to lift or tie shoes Goal Time Frame: 4-6 Weeks Goal 4:: Patient to improve back oswestry score by 5 points to improve QOL and function Goal Time Frame: 4-6 Weeks Goal 5:: Patient posture and body mechanics 80% of the time Goal Time Frame: 4-6 Weeks Rehabilitation Potential Physical Therapy Diagnosis: This patent has possible derangement with pain worse with flexion bending and better with extension and posture ,symptoms worse with motion testing and positioning thus benefit from skilled PT Rehabilitation Potential: Good Anticipated Interventions Patient/Client Instruction: Educate patient on: Condition and Plan of Care For the Purpose of:: To decrease pain, To increase ROM, To improve muscle performance and motor function, To improve ability to perform ADL's, To increase tolerance to activity/condition/position, To improve ability of physical actions for home/community/work/leisure, To improve health of tissue, To decrease soft tissue restriction, To increase flexibility/ROM and To improve tolerance to ADL's Therapeutic Exercise to Include: Strength training, Endurance training, Body mechanics, Postural training, Flexibilty training, Active ROM and Dynamic Lumbar Stabilization For the Purpose of:: To decrease pain, To increase ROM, To improve muscle performance and motor function, To increase tolerance to activi ty/condition/position, To improve ability of physical actions for home/community/work/leisure, To improve gait and locomotor functions, To improve health of tissue, To decrease soft tissue restriction, To increase flexibility/ROM and To improve endurance Manual Therapy Techniques to Include: Soft tissue mobilization Comment: GUN MASSAGE For the Purpose of:: To decrease pain, To increase ROM, To improve muscle performance and motor function, To improve ability of physical actions for home/community/work/leisure, To improve health of tissue, To decrease soft tissue restriction and To increase flexibility/ROM TENS: Yes IF ES: Yes Cryotherapy (ice pack, ice massage): Yes Thermo therapy (hot pack): Yes Ultrasound (thermal/non thermal): Yes For the Purpose of:: To decrease pain, To increase ROM, To improve nutrient delivery to tissue, To increase oxygenation perfusion, To improve health of tissue and To decrease soft tissue restriction Text: Thank you for the opportunity to evaluate your patient. For Medicare and Medicare HMO plans, please review the plan of care and approve it. It will need to be FAXED BACK to us at [phone] for Medicare purposes. For Medicare only, by signing this I certify the plan of care. Please let me know if there are questions or concerns regarding this plan of care. Physician Signature: Date:
--- NOTE | 2023-09-25 11:51 | HP.PTDCSUM_ITS ---
Discharge Summary D/C summary: It has been my pleasure to treat RADHA BINGHAM referred by Dr. Naye Baldwin MD, with the diagnosis of BACK PAIN for a total of 6 visit(s). Discharge Date: Please see the following information for a summary of their discharge status. Subjective Subjective: Doing well .. Pain Bilateral Back: Pain Intensity (Out of 10): 0 Overall Improvement % Improvement: 60 Objective Objective/Function: D/C Goals Goal 1:: I with HEP for back Goal Progress: Goal Met Goal 2:: Patient to demonstrate 50% improvement with increase function and less pain. Goal Progress: Goal Met Goal 3:: Patient to improve lumbar ROM for function of recovery to lift or tie shoes Goal Progress: Goal Met Goal 4:: Patient to improve back oswestry score by 5 points to improve QOL and function Goal Progress: Goal Met Goal 5:: Patient posture and body mechanics 80% of the time Goal Progress: Goal Met Plan Plan: PT INTERVENTIONS EDIL EX'S ,PROGRESS TO DLS ,STM - MASSAGE GUN ,POSTURAL EX'S AND MODALTIES FOR PAIN D/C Information d/c sentence: If there are questions or concerns regarding this patient's physical therapy, pl ease feel free to call me at [phone]. Thank you for the referral of this patient. Sincerely, Steven Salcido, PT, Cert MDT, OCS Balance/Gait/Functional tests Balance/Special Test Scores Oswestry Low Back Score: 6 Improvement % Improvement: 60
== END 2023-06-03 19:00 | disposition home or self-care (01) ==
LOC: PT 08:30
PROVIDERS: PCP Family Medicine; Referring Provider Family Medicine; Visit Provider Family Medicine
DX: M54.9 Dorsalgia, unspecified (principal)
CPT/HCPCS: 97014; 97110; 97162; 97530; G0283

== ENCOUNTER 2023-08-13 16:30 | Outpatient (RCR) | payer OTHER, SELFPAY ==
--- NOTE | 2023-07-15 11:44 | HP.PTEVAL_ITS ---
Patient's Visit Information Visit Information Visit Information: RADHA BINGHAM is a 57 year old F referred to Physical Therapy by Dr. Winston Cortes DPM with a diagnosis of L achilles tendonopathy. Date of Evaluation: 07/15/23 Physical Therapist: Onofre Pulido DPT, OCS, CSCS Visit Plan Frequency: 3x /Week Duration: 2 Months Plan: 2-3x/week for 6-8(start 3) for rollout and stretch gastroc soleus and achilles, CFM to chilles, US nonthermal to L achilles. Eccentric strength to L achilles gastroc soleus. Progression to proprioception and home strength as pain improves. IE: given gastroc and soleus wall stretch 305x 2x/day, AP when sitting and recommended heel lift and given ling to HP store. ice massage as needed. Ensure appropriate activitiy modification Consider Radial pulse wave Subjective Subjective: I have achilles tendonitis. has burning pain with ambuilation back of L ankle. Insidious onet for several months. Enjoys walking dog which she is avoiding. Initially felt a bump in back of achilles and got worse. Comfortable at rest. Aggravated with walking alot. Trying ice. Trying pain cream which did help but it ledesma her skin. On meloxicam which may help, also takes advil/tylenol. Sleep is Ok. Worse walking, very tight first thing in am. 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 Getting up can hurt. Hobbies are sedentary. No regular exercise other than starting [employer] for [employer] Basic ADLS, all no problem. Pressure washed house on feet alot and it aggravated it. Got inserts which help a little bit. Aggravated 2 weeks ago at beach. Pain L achilles: Pain Intensity (Out of 10): 0 Pain Intensity Range: 0 and 7 Comment: worse walking alot Objective Objective: L avoidance of push off initially upon standing but smooths out well. Trasnfers I bed and chair. max tender over module in distal L achilles not present on R side. Pain with AROM PF, pain with passive ROM DF end range. Min tightness in gastroc and soleus B with 3 degrees DF in both positions, 6 degrees AROM DF, PF/inv/ev are full. Sensation LE WNL to gross light touch in B LE. Metatarsals are moving well B as is big toe. Strength is 4 in all directions but pain with PF on L and heel raises are able but painful L. Balance/Special Test Scores Lower Extremity Functional Score: 51 Goals Goal 1:: Walk without pain in community situations Goal Time Frame: 6-8 Weeks Goal 2:: Patient feel pain and activities are 75% improved Goal Time Frame: 6-8 Weeks Goal 3:: LEFS score 60 Goal Time Frame: 6-8 Weeks Goal 4:: I appropriate management of condition. Goal Time Frame: 6-8 Weeks Goal 5:: walk dog without increasing pain Goal Time Frame: 6-8 Weeks Rehabilitation Potential Physical Therapy Diagnosis: achilles pain and tightness limiting funcition Rehabilitation Potential: Fair Anticipated Interventions Patient/Client Instruction: Educate patient on: Condition and Plan of Care For the Purpose of:: To decrease pain, To increase ROM, To improve nutrient delivery to tissue and To improve muscle performance and motor function Therapeutic Exercise to Include: Strength training, Flexibilty training, Passive ROM and Active ROM For the Purpose of:: To decrease pain, To increase ROM, To improve nutrient delivery to tissue, To improve muscle performance and motor function and To increase tolerance to activity/condition/position Manual Therapy Techniques to Include: Trigger point massage, Mobilization, Passive ROM and Soft tissue mobilization For the Purpose of:: To decrease pain, To increase ROM, To improve nutrient delivery to tissue, To increase tolerance to activity/condition/position and To improve ability of physical actions for home/community/work/leisure Cryotherapy (ice pack, ice massage): Yes Ultrasound (thermal/non thermal): Yes For the Purpose of:: To decrease pain and To decrease swelling/inflammation Text: Thank you for the opportunity to evaluate your patient. For Medicare and Medicare HMO plans, please review the plan of care and approve it. It will need to be FAXED BACK to us at [phone] for Medicare purposes. For Medicare only, by signing this I certify the plan of care. Please let me know if there are questions or concerns regarding this plan of care. Physician Signature: Date:
--- NOTE | 2023-08-13 17:15 | HP.PTDCSUM ---
Discharge Summary D/C summary: It has been my pleasure to treat RADHA BINGHAM referred by Dr. Winston Cortes DPM, with the diagnosis of L achilles tendonopathy for a total of 12 visit(s). Discharge Date: 08/13/23 Please see the following information for a summary of their discharge status. Subjective Subjective: I am doing well. Walking but not with dog yet as she pulls all over the place. Is walking 15 minutes but thinks she could do 20. Noticeable disocmfort at times but no pain. 90% better. To doctor Thursday. Meloxicam is still being taken. Pain L achilles: Pain Intensity (Out of 10): 0 Overall Improvement % Improvement: 90 Objective Objective/Function: Great DF ROM at 8 degrees knee straight and bent, mild tender at chilles insertion. No antalgia in gait today, Heel raises and toe raises without pain. Pt happy with progress and I in management. Will f/u with doctor next week adn continue HEP Goals Goal 1:: Walk without pain in community situations Goal Progress: Goal Met Goal 2:: Patient feel pain and activities are 75% improved Goal Progress: Goal Met Goal 3:: LEFS score 60 Goal Progress: Progressing Goal 4:: I appropriate management of condition. Goal Progress: Goal Met Goal 5:: walk dog without increasing pain Goal Progress: not yet Plan Plan: d/c D/C Information d/c sentence: If there are questions or concerns regarding this patient's physical therapy, please feel free to call me at [phone]. Thank you for the referral of this patient. Sincerely, Onofre Pulido, DPT, OCS, CSCS Balance/Gait/Functional tests Balance/Special Test Scores Lower Extremity Functional Score: 55 Improvement % Improvement: 90
== END 2023-08-13 19:00 | disposition home or self-care (01) ==
LOC: PT 16:30
PROVIDERS: PCP Family Medicine; Referring Provider Student in an Organized Health Care Education/Training Program; Visit Provider Student in an Organized Health Care Education/Training Program
DX: M76.62 Achilles tendinitis, left leg (principal)
CPT/HCPCS: 97035; 97110; 97140; 97161; 97530

== ENCOUNTER → 2023-09-04 | Outpatient (CLI) | payer OTHER, SELFPAY ==
--- NOTE | 2023-09-04 07:33 | BI_ITS ---
MAMMOGRAPHY - BILATERAL SCREENING REASON FOR EXAM: Female, 57 years old. Routine annual screening examination. PERTINENT HISTORY: Non-contributory. TECHNIQUE: Digital bilateral breast debbie (3D mammographic acquisition) in the CC and MLO projections. 2-D mediolateral oblique (MLO) and craniocaudad (CC) views of both breasts were obtained. CAD: Full Field Digital Mammography with Computer Added Detection was performed. COMPARISON: Comparison is made with prior study August 04, 2022 and August 07, 2021. FINDINGS: Breast Composition: There are scattered areas of fibroglandular density. There are no dominant masses or suspicious calcifications. Stable 7 mm nodule with central calcification in the central portion of the right breast. No other significant abnormalities are identified. There has been no significant change since the prior study. BI/SCRN MAMM (CAD)W/DEBBIE BILAT IMPRESSION: Stable bilateral screening mammogram. Yearly follow-up mammogram recommended. (A) ASSESSMENT CATEGORY: BIRADS Category 2: Benign. A letter regarding these results will be sent to the patient by the facility within 30 days. Approximately 10% of breast cancers are not detected by mammography. A normal mammogram should not delay biopsy of a clinically suspicious abnormality. [id number] Electronically Signed: Jovany Guerrier MD at 9:13 EDT ,
== END | disposition home or self-care (01) ==
LOC: OPBI 07:32
PROVIDERS: PCP Family Medicine; Referring Provider Family Medicine; Visit Provider Family Medicine
DX: Z12.31 Encounter for screening mammogram for malignant neoplasm of breast (principal)
CPT/HCPCS: 77063; 77067

== ENCOUNTER → 2023-11-17 | Outpatient (CLI) | payer OTHER, SELFPAY ==
[2023-11-17 12:50] LABS: Protein:Creat Ratio 92 mg/g CRE (0-200)
[2023-11-17 13:02] LABS: AST(SGOT) 18 U/L (15-37); Alanine Aminotransfer ALT/SGPT 24 U/L (13-56); Anion Gap 4 (5-15); BUN 17 mg/dL (7-18); BUN/Creat Ratio 18.8 RATIO (10-20); Chloride 104 mmol/L (98-107); Cholesterol 161 mg/dL (200); EST Glomerular Filtration Rate 68 mL/min (>60); Est Glom Filt Rate - Afr Amer 83 mL/min (>60); Glucose 97 mg/dL (74-106); High Density Lipoprotein 62 mg/dL; Potassium 3.9 mmol/L (3.5-5.1); Sodium Level 136 mmol/L (136-145); Triglycerides 166 mg/dL; Very Low Density Lipoprotein 33 mg/dL (5-40)
== END | disposition home or self-care (01) ==
LOC: MFPLAB 10:19
PROVIDERS: PCP Family Medicine; Visit Provider Family Medicine
DX: E78.2 Mixed hyperlipidemia (principal); I10 Essential (primary) hypertension
CPT/HCPCS: 36415; 80048; 80061; 82570; 84156; 84450; 84460

== ENCOUNTER 2023-12-09 13:13 | Emergency (ER) | payer OTHER, SELFPAY ==
[2023-12-09 13:13] VITALS: BP 158/100; PULSE 97; RESP 16; TEMP 36.6; O2SAT 100; BMI 33.0
[2023-12-09 13:22] VITALS: BMI 33.1
--- NOTE | 2023-12-09 13:28 | ED.RN ---
Dr. Yang bedside
[2023-12-09 13:44] LABS: Bedside Glucose 116 mg/dL (74-106)
--- NOTE | 2024-01-08 04:08 | EX.ED.DYSGE1 ---
HPI History of Present Illness Chief Complaint: Neuro S/Sx Informant: patient Narrative Narrative: This is dictation for visit dated 12/09/2023 58-year-old female presenting to the emergency room with a chief complaint of left facial droop. Patient noted symptoms today at approximately 1130 hrs. [facility] Medical History HLD (hyperlipidemia) HTN (hypertension) Depression Home Medications ?Medication ?Instructions ?Recorded ?Last Taken ?Type amlodipine 2.5 mg tablet 2.5 mg PO QHS 06/20/15 Unknown History bupropion HCl 100 mg tablet 200 mg PO QHS 06/20/15 Unknown History hydrochlorothiazide 25 mg tablet 25 mg PO DAILY 06/20/15 Unknown History jwjvdvotqlao-Fz-zzds-minerals 1 ea PO DAILY 06/20/15 Unknown History (Multiple Vitamin, Womens tablet) sertraline 100 mg tablet 200 mg PO QHS 06/20/15 Unknown History cetirizine 10 mg capsule (Zyrtec) 10 mg PO DAILY 05/30/16 Unknown History fluconazole 150 mg tablet 150 mg PO Q3D 2 doses #2 tabs 02/26/21 Unknown Rx (Diflucan) potassium chloride 10 mEq 10 meq PO DAILY 12/06/22 Unknown History tablet,extended release rosuvastatin 10 mg tablet 10 mg PO DAILY 12/06/22 Unknown History prednisone 20 mg tablet 60 mg (3 x 20 mg) PO DAILY 7 days 12/09/23 Unknown Rx #21 TABLETS valacyclovir 1 gram tablet 1,000 mg PO TID #21 tabs 12/09/23 Unknown Rx Allergy/AdvReac Type Severity Reaction Status Date / Time oxycodone HCl (From Percocet) AdvReac Nausea Verified 12/09/23 13:13 Surgical History Hx of appendectomy H/O: hysterectomy History of total bilateral knee replacement Status post total right knee replacement Social History Smoking Status: Never smoker ROS ROS ED Constitutional Constitutional ED: Denies chills or weight loss Eyes Eyes: Denies change in vision or diplopia ENT ENT ED: Denies ear pain, rhinorrhea or sore throat Cardiovascular Cardiovascular: Denies chest pain, orthopnea, palpitations or racing heartbeat Respiratory/Chest Respiratory/Chest: Denies cough, dyspnea or orthopnea Gastrointestinal Gastrointestinal: Denies abdominal pain, diarrhea, nausea or vomiting Genitourinary Genitourinary ED: Denies dysuria, hematuria or urinary frequency Musculoskeletal Musculoskeletal: Denies arthralgias or myalgias Integumentary Denies abscess or rash Neurologic Neurologic: Reports paresthesias and weakness; Denies headache(s) Psychiatric Psychiatric: Denies anxiety, depression, suicidal ideation or suicidal thoughts Endocrine Endocrinology: Denies polydipsia, polyphagia or polyuria Allergic/Immunologic Allergic/Immunologic ED: Denies mouth swelling, tongue swelling or urticaria EXAM Physical Exam Const Positive well nourished and well developed General Appearance ED: well developed HEENT Reports normocephalic, head/scalp atraumatic and moist mucous membranes Eyes PERRL and EOMs intact bilaterally Neck no lymphadenopathy, supple and no JVD Resp normal respiratory effort and clear to auscultation bilaterally Cardio regular rate, regular rhythm and no murmurs GI normal to inspection, nondistended, normoactive bowel sounds and non-tender Palpation: soft Back/Spine no CVA tenderness and normal ROM Extremity normal to inspection General Extremety ED: Negative for edema General Extremity: Negative for edema Neuro oriented x3 Neuro Narrative: Patient has facial droop and inability to fully close the eye or to wrinkle forehead. 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 She will be started on valacyclovir and prednisone. History & Record Review Discussion w/independent historian: Patient Discharge Plan Triage Chief Complaint: Neuro S/Sx ED Provider: José Miguel Yang Dx/Rx/DC Orders Clinical Impression: Webber's palsy Instructions: Webber's Palsy Prescriptions: New valacyclovir 1 gram tablet 1,000 mg PO TID Qty: 21 0RF prednisone 20 mg tablet 60 mg PO DAILY 7 Days Qty: 21 0RF No Action fluconazole [Diflucan] 150 mg tablet 150 mg PO Q3D Qty: 2 0RF Rx Instructions: may repeat second dose 72 hrs after first dose if symptoms persist potassium chloride 10 mEq tablet extended release 10 meq PO DAILY rosuvastatin 10 mg tablet 10 mg PO DAILY sertraline 100 MG tablet 200 mg PO QHS Patient Comments: mood amlodipine 2.5 MG tablet 2.5 mg PO QHS Patient Comments: high blood pressure bupropion HCl 100 MG tablet 200 mg PO QHS Patient Comments: mood hydrochlorothiazide 25 MG tablet 25 mg PO DAILY Patient Comments: high blood pressure [id number]-Uw-jkzr-minerals [Multiple Vitamin, Womens] 1 EACH tablet 1 ea PO DAILY Patient Comments: supplement cetirizine [Zyrtec] 10 MG capsule 10 mg PO DAILY Primary Care Provider: Naye Baldwin Referrals: Naye Baldwin MD [Primary Care Provider] - 1 Week if not improving Activity Restrictions/Additional Instructions: As we discussed eye dryness and irritation is common. Would recommend utilizing artificial tears during the day and if needed using a piece of scotch tape to keep the eyelid closed at night. If you develop a rash I would recommend follow-up with primary care and possibly ophthalmology depending on the distribution of the rash. Print Language: [place] Disposition Disposition: Home, Self Care Discharge Date/Time: 12/09/23 13:54
== END 2023-12-09 13:54 | disposition home or self-care (01) ==
LOC: ED 13:44
PROVIDERS: Emergency Provider Emergency Medicine; PCP Family Medicine; Visit Provider Emergency Medicine
DX: G51.0 Bell's palsy (principal); I10 Essential (primary) hypertension; Z90.710 Acquired absence of both cervix and uterus; E78.5 Hyperlipidemia, unspecified; F32.A Depression, unspecified; Z96.653 Presence of artificial knee joint, bilateral
CPT/HCPCS: 82962; 99282

== ENCOUNTER 2024-02-22 14:27 | Emergency (ER) | payer OTHER, SELFPAY ==
[2024-02-22 14:29] VITALS: BP 148/91; PULSE 96; RESP 18; TEMP 35.7; O2SAT 99
--- NOTE | 2024-02-22 14:50 | RAD_ITS ---
EXAM: XR LEFT TIBIA AND FIBULA, 2 VIEWS CLINICAL INDICATION: pain/swelling TECHNIQUE: Frontal and lateral views of the left tibia and fibula. COMPARISON: No relevant prior studies available. FINDINGS: BONES/JOINTS: Knee prosthesis in place. No acute fracture or subluxation. SOFT TISSUES: Normal. No soft tissue swelling or gas. No radiopaque foreign body. RAD/Tibia & Fibula 2 Views IMPRESSION: No acute fracture or subluxation. Electronically Signed: Hardeep Quintana MD at 15:23 EST ,
[2024-02-22 18:28] VITALS: BP 136/74; PULSE 78; RESP 16; O2SAT 98
--- NOTE | 2024-02-22 18:59 | EX.ED.DYSGE1 ---
HPI History of Present Illness Chief Complaint: Lower Extremity Injury Narrative Narrative: Chief complaint and HPI: Left lower extremity pain. 58-year-old female presents for evaluation of left lower leg pain after an injury. Patient states that she lost her balance and fell into a bookshelf with her left leg. States that she is currently getting treated for Achilles tendinitis. Patient endorses increased pain in her left calf since the injury. She denies increased pain at the Achilles tendon or ankle. Patient is able to ambulate. She denies any numbness or tingling. Denies pain elsewhere. Review of systems: See HPI Medications: As listed on the chart Allergies: As listed on the chart PFSH: Per chart Vital signs: As listed on the chart. Reviewed. Physical exam: Gen: A&O x3, NAD Head: Normocephalic, atraumatic Eyes: No sclera icterus, conjunctiva clear ENT: Moist mucous membranes CV: Regular rate and rhythm Resp: Nonlabored respirations Musc: Full ROM of the left lower extremity, no deformity, strength 5 out of 5, mild tenderness to palpation of the Achilles tendon which patient states has been her baseline, negative Wayne test, Achilles intact, mild tenderness to palpation of the posterior mid calf-nonswollen/no erythema/no ecchymosis, ankle/foot/knee nontender to palpation with full range of motion, DP/PT pulses plus 2 out of 4 Skin: Warm, dry Neuro: Alert, oriented, grossly intact, sensation intact Psych: Cooperative, appropriate mood and [facility] History HLD (hyperlipidemia) HTN (hypertension) Depression Home Medications ?Medication ?Instructions ?Recorded ?Last Taken ?Type amlodipine 2.5 mg tablet 2.5 mg PO QHS 06/20/15 Unknown History bupropion HCl 100 mg tablet 200 mg PO QHS 06/20/15 Unknown History hydrochlorothiazide 25 mg tablet 25 mg PO DAILY 06/20/15 Unknown History niyizxmllwjm-Ua-nhnk-minerals 1 ea PO DAILY 06/20/15 Unknown History (Multiple Vitamin, Womens tablet) sertraline 100 mg tablet 200 mg PO QHS 06/20/15 Unknown History cetirizine 10 mg capsule (Zyrtec) 10 mg PO DAILY 05/30/16 Unknown History potassium chloride 10 mEq 10 meq PO DAILY 12/06/22 Unknown History tablet,extended release rosuvastatin 10 mg tablet 10 mg PO DAILY 12/06/22 Unknown History meloxicam 15 mg tablet 15 mg PO DAILY 02/22/24 Unknown History Allergy/AdvReac Type Severity Reaction Status Date / Time oxycodone HCl (From Percocet) AdvReac Nausea Verified 02/22/24 14:29 Surgical History Hx of appendectomy H/O: hysterectomy History of total bilateral 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 See physical exam. Suspect calf contusion however fracture is in the differential. X-ray of the left tib/fib was obtained in triage. X-ray was personally reviewed by me, ED physician. No fracture or dislocation. Patient has a prosthetic knee. Patient's pain is likely secondary to a calf contusion. She was able to ambulate in the emergency department. Patient stable to discharge home. Tylenol as needed for pain. Patient already takes meloxicam. Follow-up with PCP. She confirmed understand the plan. Impression: 1. Left calf contusion 2. Mechanical fall Radiography Diagnostic Testing: Clinical Impression(s) from Imaging Studies Tibia/Fibula X-Ray 02/22/24 14:50 IMPRESSION: No acute fracture or subluxation. Electronically Signed: Hardeep Quintana MD at 15:23 EST , Discharge Plan Triage Chief Complaint: Lower Extremity Injury ED Provider: Klusty-Dru,Shaquille Dx/Rx/DC Orders Clinical Impression: Contusion of calf Instructions: ED Soft Tissue Contusion Prescriptions: No Action potassium chloride 10 mEq tablet extended release 10 meq PO DAILY rosuvastatin 10 mg tablet 10 mg PO DAILY sertraline 100 MG tablet 200 mg PO QHS Patient Comments: mood amlodipine 2.5 MG tablet 2.5 mg PO QHS Patient Comments: high blood pressure bupropion HCl 100 MG tablet 200 mg PO QHS Patient Comments: mood hydrochlorothiazide 25 MG tablet 25 mg PO DAILY Patient Comments: high blood pressure Multiple Vitamin, Womens 1 EACH tablet 1 ea PO DAILY Patient Comments: supplement Zyrtec 10 MG capsule 10 mg PO DAILY meloxicam 15 mg tablet 15 mg PO DAILY Primary Care Provider: Naye Baldwin Referrals: Naye Baldwin MD [Primary Care Provider] - 3-5 Days Activity Restrictions/Additional Instructions: Take your meloxicam. Follow-up with your primary care physician. Print Language: Danish Disposition Disposition: Home, Self Care Discharge Date/Time: 02/22/24 19:12
== END 2024-02-22 19:12 | disposition home or self-care (01) ==
PROVIDERS: Emergency Provider Surgery; PCP Family Medicine; Visit Provider Surgery
DX: S80.12XA Contusion of left lower leg, initial encounter (principal); I10 Essential (primary) hypertension; E78.5 Hyperlipidemia, unspecified; Z90.710 Acquired absence of both cervix and uterus; F32.A Depression, unspecified; W01.190A Fall on same level from slipping, tripping and stumbling with subsequent striking against furniture, initial encounter; Z96.651 Presence of right artificial knee joint
CPT/HCPCS: 73590; 99282

== ENCOUNTER → 2024-03-16 | Outpatient (CLI) | payer OTHER, SELFPAY ==
--- NOTE | 2024-03-16 12:34 | RAD_ITS ---
EXAM: XR CHEST, 2 VIEWS CLINICAL INDICATION: pre-op clearance TECHNIQUE: Frontal and lateral views of the chest. COMPARISON: CTA chest, 06/16/2016. FINDINGS: LUNGS AND PLEURAL SPACES: No significant abnormality. No consolidation or edema. No pneumothorax. No effusion. HEART: No significant abnormality. Cardiac silhouette not enlarged. MEDIASTINUM: Central airways and mediastinal contour are unremarkable. BONES/JOINTS: Degenerative changes in the spine and scoliotic curvature. No acute fracture. SOFT TISSUES: No significant abnormality. VASCULATURE: Vascular calcifications. RAD/Chest PA and Lateral IMPRESSION: No acute findings in the chest. Electronically Signed: Adrián Reece DO at 23:57 EST ,
== END | disposition home or self-care (01) ==
LOC: MTRAD 12:34
PROVIDERS: PCP Family Medicine; Referring Provider Family Medicine; Visit Provider Family Medicine
DX: Z01.818 Encounter for other preprocedural examination (principal)
CPT/HCPCS: 71046

== ENCOUNTER 2024-03-24 11:15 | Day surgery (SDC) | payer OTHER, SELFPAY ==
[2024-03-14 17:21] LABS: Absolute Lymphocyte Count 3.05 X10^3/uL (0.83-4.51); Absolute Neutrophil Count 4.1 X10^3/uL (2.0-7.7); Basophil# 0.04 X10^3/uL; Basophil% 0.5 % (0-1); Eosinophils% 2.5 % (0-5); Hematocrit 40.9 % (37-47); Hemoglobin 13.8 g/dL (12.0-15.0); Lymphocyte # 3.05 X10^3/ul (0.83-4.51); Lymphocyte % 38.3 % (19-41); Mean Corp Hgb Conc 33.7 g/dL (32-36); Mean Corpuscular Hgb 30.8 pg (27.0-32.0); Mean Corpuscular Volume 91.3 fL (81-99); Mean Platelet Vol. 10.7 fl (6.2-12.0); Monocyte# 0.54 X10^3/uL; Monocyte% 6.8 % (0-10); NRBC Flagged by Analyzer 0 % (0-5); Neutrophil # 4.12 X10^3/uL (2.7-7.7); Neutrophil % 51.8 % (47-70); Platelet Count 232 K/mm3 (150-450); RBC Distribution Width CV 12.8 % (11.6-14.6); Red Blood Count 4.48 M/mm3 (4.2-5.4)
[2024-03-14 17:32] LABS: ALB/GLOB Ratio 1.1 RATIO (0.9-2.4); AST(SGOT) 18 U/L (15-37); Alanine Aminotransfer ALT/SGPT 26 U/L (13-56); Albumin, Serum 3.8 g/dL (3.2-5.0); Alkaline Phosphatase 96 U/L (45-117); Anion Gap 6 (5-15); BUN 20 mg/dL (7-18); BUN/Creat Ratio 21.9 RATIO (10-20); Calcium,Total 9.5 mg/dL (8.5-10.1); Chloride 104 mmol/L (98-107); Creatinine, Serum 0.91 mg/dL (0.55-1.02); EST Glomerular Filtration Rate 68 mL/min (>60); Est Glom Filt Rate - Afr Amer 82 mL/min (>60); Globulin 3.5 g/dL (2.2-4.2); Glucose 103 mg/dL (74-106); Potassium 3.4 mmol/L (3.5-5.1); Protein, Total 7.3 g/dL (6.4-8.2); Sodium Level 139 mmol/L (136-145)
[2024-03-24] VITALS (9 sets, daily range): BP systolic 123–135; BP diastolic 72–89; PULSE 74–112; RESP 16; TEMP 36.3–37; O2SAT 91–100; BMI 33.4
[2024-03-24] MEDS: 0.9% Normal Saline (1000mL) 1,000 ML 15 ML IV (11:50)
--- NOTE | 2024-03-24 12:30 | PCM.PRE.AN2 ---
ASA Classification* ASA Classification ASA Classification: 3 Assessment & Plan Anesthesia* Anesthesia Assessment Anesthesia Assessment: Discussed sedation and/or anesthesia options, risks, benefits, and alternatives with patient/parents/legal guardian/POA. Questions invited. The patient/parents/legal guardian/POA seems to understand and agrees to proceed with anesthesia plan. Reviewed the physical assessment, medical history, allergy history and patient home medications list prior to surgery/procedure/anesthetic and documented any changes. Performed airway and anesthesia risk assessments. Anesthesia Type Anesthesia Type: General and Block (Patient is consented for popliteal block.) History Source History Obtained from:: Patient and Chart Anesthesia Focused Assessment* Temperature: 98.6 F Pulse Rate: 74 Blood Pressure: 130/72 Respiratory Rate: 16 Pulse Ox: 100 Oxygen Delivery Method: Room Air Airway Assessment Mouth opens: >3 cm Mallampati Score: II Teeth Condition: Partial (Patient has a upper and lower bridge. They are tight.) Neck Range of motion (ROM): Limited ROM Focused Labs Anesthesia Preop lab: CBC WBC 8.0 K/mm3 (4.4-11.0) 03/14/24 14:39 03/14/24 RBC 4.48 M/mm3 (4.2-5.4) 03/14/24 14:39 03/14/24 Hgb 13.8 g/dL (12.0-15.0) 03/14/24 14:39 03/14/24 Hct 40.9 % (37-47) 03/14/24 14:39 03/14/24 Plt Count 232 K/mm3 (150-450) 03/14/24 14:39 03/14/24 CHEMISTRY Potassium 3.4 mmol/L (3.5-5.1) L 03/14/24 14:39 03/14/24 Sodium 139 mmol/L (136-145) 03/14/24 14:39 03/14/24 BUN 20 mg/dL (7-18) H 03/14/24 14:39 03/14/24 Creatinine 0.91 mg/dL (0.55-1.02) 03/14/24 14:39 03/14/24 Glucose 103 mg/dL (74-106) 03/14/24 14:39 03/14/24 POC Glucose 116 mg/dL (74-106) H 12/09/23 13:26 12/09/23 TSH 1.23 uIU/mL (0.358-3.74) 11/01/21 09:55 11/01/21 COAG Pre-Assessment Diagnosis/Proposed Procedure Planned Operative Procedure(s): REPAIR OF LEFT ACHILLES TENDON Anesthesia History Anesthesia History - 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 When Was Last Pacemaker Check QUESTION #4 FULL TEXT: You/Your Family Experience fever (hyperthermia) with Anesthesia Last Oral Intake Last Oral intake: Last Oral Intake NPO since 07:00 03/24/24 11:56 Meds taken in AM with sips of No 03/24/24 11:56 water? Meds patient instructed to take am of surgery Any additional information?: Yes NPO since: 07:00 (Patient water at 7 AM.) PONV PONV - minute clerk for basic traffic: PONV - minute clerk for basic traffic Female Yes 03/15/24 10:13 HX of Motion Sickness No 03/15/24 10:13 HX of N/V After Surgery No 03/15/24 10:13 Non-Smoker Yes 03/15/24 10:13 Duration of Surgery greater Yes 03/15/24 10:13 than 60 minutes Number of Risk Factors 3 03/15/24 10:13 PONV Score Moderate Risk 03/15/24 10:13 Height & Weight Height & Weight: Anesthesia: Height & Weight Height 5 ft 8 in 03/24/24 11:56 Weight: 99.79 kg 03/24/24 11:56 Body Mass Index (BMI) 33.4 03/24/24 11:56 Respiratory Assessment Respiratory Assessment - minute clerk for basic traffic: Respiratory Tract Infection Hx - minute clerk for basic traffic Hx Respiratory Tract Infection No 03/15/24 10:13 STOP Sleep Apnea STOP Sleep Apnea - minute clerk for basic traffic: STOP Sleep Apnea - minute clerk for basic traffic Hx Hypertension Yes: CONTROLLED WITH MEDS 03/15/24 10:13 Hx Sleep Apnea No 03/15/24 10:13 CPAP No 05/30/16 13:08 BIPAP Do you snore loudly (louder No 03/15/24 10:13 than talking or can be heard Do you often feel tired/ No 03/15/24 10:13 fatigued/ sleepy during daytime? Has anyone observed you stop No 03/15/24 10:13 breathing during sleep? STOP Results Negative 03/15/24 10:13 QUESTION #5 FULL TEXT : Do you snore loudly (louder than talking or can be heard through closed doors)? 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 Specify any problems Hx of Preganancy in last 3 No 03/15/24 10:13 Months Nurse Filling Out Transfusion DSCHRIBER 03/15/24 10:13 & Questions: Date: 03/15/24 03/15/24 10:13 Time: 10:15 03/15/24 10:13 Patient unable to answer at this time (ie. confused, unrespo /Reproduction History /Reproductive History - minute clerk for basic traffic: /Reproductive Hx- minute clerk for basic traffic Hx Now No 03/15/24 10:13 Gestational Age (in weeks): EDC: Hx Hx Para Hx Section SAB No 03/15/24 10:13 Active Medications Active Medications: Current Medications Generic Name Dose Route Start Last Admin Trade Name Freq PRN Reason Stop Dose Admin Cefazolin Sodium 2 gm/ N/A 20 mls @ 400 mls/hr 03/24/24 13:00 IV 03/24/24 13:02 PREOP ONE Sodium Chloride 1,000 mls @ 15 mls/hr 03/24/24 11:40 03/24/24 11:50 IV 03/30/24 00:59 15 mls/hr .Q48H DINAH Administration Protocol [facility] Medical History Wears glasses History of steroid therapy Shingles Webber's palsy Uses wheelchair Arthritis Easy bruising Non-smoker HLD (hyperlipidemia) HTN (hypertension) Depression Home Medications ?Medication ?Instructions ?Recorded ?Last Taken ?Type amlodipine 2.5 mg tablet 2.5 mg PO QHS 06/20/15 Unknown History bupropion HCl 100 mg tablet 200 mg PO QHS 06/20/15 Unknown History hydrochlorothiazide 25 mg tablet 25 mg PO DAILY 06/20/15 Unknown History cjowdmvfmzmp-Xg-lneg-minerals 1 ea PO DAILY 06/20/15 Unknown History (Multiple Vitamin, Womens tablet) sertraline 100 mg tablet 200 mg PO QHS 06/20/15 Unknown History cetirizine 10 mg capsule (Zyrtec) 10 mg PO DAILY 05/30/16 Unknown History potassium chloride 10 mEq 20 meq PO DAILY 12/06/22 Unknown History tablet,extended release rosuvastatin 10 mg tablet 10 mg PO QHS 12/06/22 Unknown History meloxicam 15 mg tablet 15 mg PO DAILY 02/22/24 Unknown History aspirin 325 mg tablet 325 mg PO DAILY 20 days #20 tabs 03/24/24 Unknown Rx doxycycline hyclate 100 mg tablet 100 mg PO DAILY #10 tabs 03/24/24 Unknown Rx ondansetron 4 mg disintegrating 4 mg PO Q8H #35 tabs 03/24/24 Unknown Rx tablet oxycodone-acetaminophen 5 mg-325 1 tab PO Q8H PRN pain 7 days #35 03/24/24 Unknown Rx mg tablet tabs Allergy/AdvReac Type Severity Reaction Status Date / Time oxycodone HCl (From Percocet) AdvReac Nausea Verified 03/24/24 11:55 Surgical History Hx of colonoscopy Hx of oophorectomy Hx of total knee arthroplasty Hx of total knee arthroplasty Hx of appendectomy H/O: hysterectomy Social History Smoking Status: Never smoker Review of Systems (Anesthesia) ROS Narrative System reviewed and no additional complaints, except as documented.
--- NOTE | 2024-03-24 12:35 | DCINST_ITS ---
Discharge Instructions Diet Discharge Diet: No restrictions DC O2, CPAP, BIPAP needs Home O2 Discharge instructions: No Dressing / Incision Discharge Activity: May Not Drive (May not drive until off of narcotic medication. Physician will clear patient for privileges at later date.), May Shower (Please utilize cast bag covering when showering to keep dressings clean, dry, and intact to the left lower extremity) and Use Walker (Please utilize walker, knee scooter, wheelchair to remain nonweightbearing to the left lower extremity) Weight Bearing Status: No weight bearing (Please remain nonweightbearing to the left lower extremity with the assistance of walker, knee scooter, or wheelchair) Keep extremity elevated above heart level: Left Leg (Please elevate left lower extremity at all times of rest for postoperative edema control) Dressing / Incision Call your doctor if you observe: Fever of 101 or Higher, Shortness of breath, Chest pain, Calf discomfort and Uncontrolled pain Change Dressing in: do not change dressing Remove Dressing in: leave in place till F/U (Do not change dressing. Leave dressing clean, dry, and intact to the left foot/leg. Physician will change dressing at first postoperative appointment) Cleanse incision/area with: Do not get Incision Wet and Keep Dressing Clean & Dry (Do not get site wet. Please keep all dressings clean, dry, and intact to the left lower extremity and utilize cast bag when showering to remain com pliant.) Follow Up Care Please Follow Up With: Winston Cortes DPM When: Patient has first postoperative appointment with me in office early next week Test Results: Test results from this visit will be discussed in further detail at your follow- up appointment, if applicable. Discharge Plan Admission Attending Provider: Winston Cortes Primary Care Provider: Naye Baldwin Instructions Print Language: Zambian Discharge Orders/Prescriptions Prescriptions: New doxycycline hyclate 100 mg tablet 100 mg PO DAILY Qty: 10 0RF aspirin 325 mg tablet 325 mg PO DAILY 20 Days Qty: 20 0RF oxycodone-acetaminophen 5-325 mg tablet 1 tab PO Q8H PRN (Reason: pain) 7 Days Qty: 35 0RF ondansetron 4 mg tablet,disintegrating 4 mg PO Q8H Qty: 35 0RF Rx Instructions: may take with oral pain medication as needed for nausea No Action potassium chloride 10 mEq tablet extended release 20 meq PO DAILY rosuvastatin 10 mg tablet 10 mg PO QHS sertraline 100 MG tablet 200 mg PO QHS Patient Comments: mood amlodipine 2.5 MG tablet 2.5 mg PO QHS Patient Comments: high blood pressure bupropion HCl 100 MG tablet 200 mg PO QHS Patient Comments: mood hydrochlorothiazide 25 MG tablet 25 mg PO DAILY Patient Comments: high blood pressure Multiple Vitamin, Womens 1 EACH tablet 1 ea PO DAILY Patient Comments: supplement Zyrtec 10 MG capsule 10 mg PO DAILY meloxicam 15 mg tablet 15 mg PO DAILY Referrals / Follow Up: Naye Baldwin MD [Primary Care Provider] - Disposition Disposition (needs filled in before D/C Order can be placed): Home, Self Care
--- NOTE | 2024-03-24 12:50 | RAD_ITS ---
PROCEDURE: CALCANEUS MIN 2 VIEWS REASON FOR EXAM: Fluoroscopy. TECHNIQUE: Fluoroscopic views of the calcaneus. COMPARISON: None. FINDINGS: Fluoroscopic views of the calcaneus. No evidence of acute fracture. RAD/Calcaneus min 2 Views IMPRESSION: As above. Reading Location: [id number]
[2024-03-24] MEDS: Cefazolin 2 GM in Syringe IV (13:19)
--- NOTE | 2024-03-24 18:19 | PCM.POST.ANE ---
Anesthesia: Postop Eval I Current Vital Signs Temperature: 97.4 F Pulse Rate: 112 Blood Pressure: 133/77 Respiratory Rate: 16 Pulse Ox: 98 Oxygen Delivery Method: Room Air Assessment Airway patent: Yes Spontaneous unlabored respirations: Yes Mental status: Awake and Confused nausea: No Vomiting: No Anesthesia Complication: No Fluid Hydration Crystalloid volume administer (ml): 1,000 Total IV fluid infused: 1,000 Progress Note Anesthesia document: Postop Eval 1 completed: Yes
--- NOTE | 2024-03-24 18:38 | RAD_ITS ---
PROCEDURE: ANKLE MIN 3 VIEWS REASON FOR EXAM: Postop left ankle. TECHNIQUE: 3 views of the left ankle COMPARISON: None FINDINGS: No visible fracture. No suspicious bone lesion. Normal alignment. Mortise appears intact. No effusion. Soft tissues are unremarkable. Postsurgical changes to the calcaneus. Soft tissue air which may be postsurgical. Overlying cast. RAD/Ankle min 3 Views IMPRESSION: Postsurgical changes. Reading Location: [id number]
[2024-03-24] MEDS: Ketorolac 15 MG/ML Vial IV (18:40)
--- NOTE | 2024-03-24 18:50 | OP.PCM_ITS ---
Problems Associated Problem List Diagnoses (1) Rupture of left Achilles tendon: (2) Achilles tendinitis of left lower extremity: (3) Degeneration of Achilles tendon: (4) Edema of left lower leg: (5) Pain in left foot: (6) Other acute postprocedural pain: Operative Report (Standard) Operative Information Date of Procedure: 03/24/24 Pre-Operative Diagnosis: 1. Acute Achilles tendon rupture left foot 2. Achilles tendinitis left foot 3. Degeneration left Achilles tendon 4. Swelling/edema left foot/leg 5. Pain left foot Post-Operative Diagnosis: 1. Acute Achilles tendon rupture left foot 2. Achilles tendinitis left foot 3. Degeneration left Achilles tendon 4. Swelling/edema left foot/leg 5. Pain left foot Surgery/Procedure Performed: 1. Primary repair of acute Achilles tendon rupture Left foot 2. Flexor hallucis longus (FHL) tendon transfer Left foot 3. Aram gastrocnemius muscle release Left foot 4. Turndown flap Achilles tendon Left foot 5. Implant of dermal graft Left Achilles tendon 6. Debridement Left Achilles tendinosis 7. 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 Casey Pritchard, DPM PGY-2 Tasks completed by rn first assist: Closing, Dissecting tissue and Implanting device Additional assistant men's lacrosse coach?: No Type of Anesthesia: General/Regional (Popliteal block performed by anesthesia team at end of case) RN Documented Start/Stop Times: Operation Date: 03/24/24 13:00 Case Time Into Pre-Op 03/24/24 11:37 Anesthesia Start 03/24/24 13:13 Into Room 03/24/24 13:13 Out of Pre-Op 03/24/24 13:13 Procedure Start 03/24/24 13:49 Procedure End 03/24/24 17:58 Anesthesia End 03/24/24 18:14 Into Recovery 03/24/24 18:14 Out of Room 03/24/24 18:14 Procedure Start Time: 13:49 Procedure Stop Time: 17:58 Select all DRAINS/GRAFTS/IMPLANTS that apply: Graft Graft details: Aflex Dermal Allograft 40mm x 70mm x 1.5mm thick and Implanted device Implanted device details: 7.0 mm bio composite tenodesis screw for FHL tendon 2 x 3.9 mm bio composite swivel lock for Achilles tendon attachment Estimated Blood Loss: <10mL Specimen collected: No Description of surgery: HPI/indication: Patient is a 58-year-old female who had been following in office over last 6 months with Achilles tendinitis of the left lower extremity. She had prior underwent physical therapy with improvement noted and continued stretching conservatively and utilizing night splint to aid in stretching which led to improvement in addition to supportive shoe gear and orthotic insert. Patient did have flareup of the Achilles tendinitis due to failure to continue the stretching program in addition to taking a misstep. She did return in October and underwent continued conservative care. In December she did ask for corticosteroid injection and this was discussed in detail in addition to potential of acute rupture she was understanding for this and did undergo a local injection consisting of 2 cc one-to-one mixture of lidocaine and dexamethasone. Tendon was noted to be intact prior to injection. She was instructed to rest the remainder of the day and continue conservative treatment of continued stretching the day after. Did return in January stating injection did have some minimal improvement. Achilles tendon was noted to be intact at this time with some thickening which was consistent with prior examinations. She was instructed to continue the conservative treatment and was prescribed oral steroid and to resume oral anti-inflammatory following completion of the steroid. Discussed at that time getting into physical therapy for continued conservative treatment. On 02/22/2024 she reports working in her office in which she tripped pulling a bookshelf down on top of her. Patient states she felt immediate pain in the calf area but was able to ambulate and did go to the ER where radiographs were negative for fracture and she was discharged home. She did follow-up with me in office 02/26/2024 and radiographs were obtained demonstrating soft tissue edema with obliteration of Cager's triangle consistent with an acute Achilles tendon rupture. Examination also demonstrated acute palpable dell of the Achilles tendon with pain to palpation distal to the calf at the musculotendinous junction. Delve measured between 2.5 cm and 3 cm at estimate. Positive Wayne test noted versus the contralateral limb. She was immediately immobilized in a cam boot and instructed to remain nonweightbearing to the left lower extremity. MRI was ordered and obtained on 03/01/2024. She did return to the office on 03/07/2024 for the discussion of the MRI results and thorough planning for surgical procedure. I independently reviewed imaging and study findings and did concur with the findings. MRI demonstrated complete rupture of the Achilles tendon from the insertion to the calcaneus. Prominent fraying of torn tendon edges retracted 3.7 cm superior to the tibial plafond. Marked thickening of torn retracted Achilles tendon fibers measuring up to 19 mm AP. Severe mucoid degeneration or possible tendon contusion of torn visualized tendon fibers. This extends superiorly outside of the normal field of view of the MRI of the left ankle. Diffuse fluid in the peritenon. Moderate surrounding inflammation. Inflammation noted throughout Kager's fat space. Moderate retrocalcaneal to mild retrocalcaneal bursitis. No significant Bryce osseous spur. Mild cystic changes and marrow edema noted at the level of the expected Achilles tendon insertion. Discussed performing repair of the Achilles tendon. Discussed possibility of tendon transfer versus gastroc muscle resection to aid in restoring length to the Achilles tendon. Patient was understanding of this and would like to proceed forward with repair given her case of traumatic injury. Goal of surgery was to repair the tendon and to re store functional pushoff strength to the left foot to aid in ambulation. Discussed the surgical procedure in great detail. Discussed the rationale of the procedure. Discussed risks and complications of the procedure. Discussed the risks include but are not limited to the following: Pain, continued pain, complex regional pain syndrome, infection, neuritis/numbness, delayed healing/nonhealing, overcorrection/under correction, need for additional surgery/procedures, swelling, scar tissue, poor cosmetic result, recurrence/rerupture, hardware failure, symptomatic hardware, weakness, difficulty wearing shoe gear, difficulty with ambulation, inability to ambulate, blood clot, stroke, heart attack, addiction to pain medication, postoperative arthritis, allergic reaction, loss of function, loss of limb, loss of life. Patient was able to understand these and repeat these back. Patient wishes to proceed forward with the surgical intervention and consent for procedure was signed at patient's free will. Patient is understanding of additional procedures may be required to aid in repair of the Achilles tendon to which she does give permission via signed consent. No promises were made. No guarantees were given. Operative limb was signed prior to entering the OR. She was scheduled to undergo repair of acute Achilles tendon rupture of the left foot at [facility] on 03/24/2024. Procedure: Under mild sedation patient was brought into the operating room and underwent induction of general anesthetic with endotracheal tube placement. Following this patient was transferred to the operating table in the prone position. All prominences were well-padded/offloaded. Patient was secured to table with safety belt. A well-padded pneumatic thigh tourniquet was placed about the patient's left thigh. Prior to procedure palpable delve was demonstrated in addition to positive Wayne test of the left lower extremity versus contralateral limb. The left foot was then scrubbed, prepped, and draped in the usual aseptic manner. An Esmarch bandage was utilized to exsanguinate the left foot and the pneumatic thigh tourniquet was inflated to 300 mmHg. At this time attention was directed to the posterior aspect of the left lower extremity overlying site of acute rupture of the left Achilles tendon. Fluoroscopic imaging was obtained and lateral view demonstrating posterior aspect of the calcaneus at site of rupture. A linear incision was made medial to the Achilles tendon and extended distally and curved over the midline towards the lateral aspect of the left heel utilizing a #15 blade. Incision was deepened through sharp and blunt dissection. Care was taken to identify and retract all vital neurovascular structures. There was significant edema noted to the lower extremity secondary to acute Achilles tendon rupture. Peritenon was identified and noted to be inflamed, discolored, and thickened consistent with chronic degenerative Achilles tendinosis. The peritenon was then tagged utilizing 4-0 Vicryl. The peritenon was then centrally incised and retracted medially and laterally exposing the Achilles tendon at the operative field. The Achilles tendon was noted to have acute rupture just proximal to the insertion site with distal portion intact at the posterior calcaneus with fraying of the distal and proximal segments at rupture site. The superior portion of the Achilles tendon is noted to be thickened and bulbous appearing consistent with chronic Achilles tendinosis measuring 20 mm in AP. Retraction was measured at 6.5 cm from the distal insertion site proximally. This is noted to be larger than the original MRI measurement of 3.7 cm and is likely due to foot positioning at time of imaging study. The Achilles tendon underwent debridement of proximal section and distal section frayed ends to healthy viable appearing tendon utilizing #15 blade. Significant scar tissue and nonviable/inflammatory tissue was encountered as the tendon was dissected free. Attempted retraction was performed/demonstrated and noted to be inefficient. Next, incision was deepened through the fascial layer to access the deep compartment with the fle xor hallucis longus tendon visualized and traced toward the tarsal tunnel. The left great toe was then plantarflexed and a hemostat was utilized to clamp and retract the flexor hallucis longus tendon which was transected at his most distal point. Next, flexor hallucis longus tendon transfer following AO principle was completed and secured into the posterior calcaneus under guidance of fluoroscopy utilizing 7.0 mm bio composite tenodesis screw with Endobutton plantarly secured to the calcaneus. The site was then flushed with copious amounts of normal sterile saline. Remaining portions of hematoma was debrided from the Achilles tendon and peritenon. At this time attention was directed proximally at the musculotendinous junction where a Aram gastrocnemius muscle release was performed to aid in establishing length for Achilles tendon repair. The ends of the muscle and musculotendinous junction were sutured to the underlying soleus muscle belly utilizing 0 Vicryl in simple interrupted fashion. At this time pneumatic monitoring was deflated and a prompt hyperemic response was noted to digits of the left foot. During wait time for the debridement of the tendon and surrounding structures were performed removing portions of hematoma and debridement of nonviable thickened portion of Achilles tendon approximately was performed. Following the waldo period the pneumatic tourniqu et was reinflated to 300 mmHg. The Achilles tendon was again retracted with improvement in distal movement, however the segment still had significant gapping that would be insufficient for functional repair. Thus, a turndown flap was performed of the thickened portion of Achilles tendon providing debulking of the tendon and improved length of which was sufficient enough to undergo primary repair. A Krak?w suture technique was utilized to repair the segment of the Achilles tendon in addition to implant of Aflex dermal allograft 40 mm x 70 mm x 1.5 mm thick with graft sutured into the Achilles at the mid substance portion and into the site of previous rupture for durability and increased strength of this tendinous structure, which was then anchored with Arthrex 2 x 3.9 mm bio composite swivel lock into the posterior aspect of the Achilles tendon following AO principle under guidance of fluoroscopy. Segments of the tendon were then reinforced utilizing 0 Vicryl. At this time the foot was dorsiflexed with good reapproximation of the Achilles tendon/repair of the Achilles tendon with foot noted to essentially bounce back indicating successful repair. A Wayne's test was performed on the table with plantarflexion of foot noted indicating successful repair of the Achilles tendon. At this time the site was irrigated with copious amounts of normal sterile saline. Next, the peritenon was debrided of the inflammatory tissue and tendinosis and then flushed utilizing copious amounts of normal sterile saline. The peritenon then underwent repair utilizing 4-0 Vicryl. The subcutaneous tissues were then closed utilizing 4-0 Vicryl and 0 Vicryl in simple interrupted fashion. At this time pneumatic thigh tourniquet was deflated and a prompt hyperemic response was noted to the digits of the left foot. A subcuticular stitch was then performed utilizing 4-0 Monocryl. The skin was then reapproximated/reinforced utilizing 2-0 Prolene in simple interrupted fashion and 3-0 Prolene in simple interrupted fashion. Incision site was then dressed with Betadine soaked Adaptic, 4 x 4 gauze, ABD x 2, Kerlix x 2, Webril x3, 4 inch Roberto wrap, 6 inch Roberto wrap. Next, a well padded and well molded AO splint was applied to the posterior aspect of the left lower extremity with the foot in gravity equinus and secured utilizing 4 inch Roberto wrap and 6 inch Roberto wrap. Patient tolerated the procedure and anesthesia well was transferred to PACU with vital signs stable and vascular status intact to the left foot. Patient is aware of post-operative instructions for her aftercare. Aftercare was also discussed with her sister who will be aiding in caring for her during recovery. She is understanding she will keep all dressings clean, dry, and intact to the left foot and utilize cast bag when showering to maintain compliance. She is to continue to elevate the left foot/leg at all times rest for postoperative edema control. She will take postoperative medications as instructed. She will remain nonweightbearing to the left lower extremity utilizing walker, knee scooter, or wheelchair. Patient is understanding that she is not to put weight to the foot following surgical repair as this will increase risk of rerupture. She will follow up with me in office early next week for continued postoperative care. Surgical Findings: Acute Ruptue of Left Achilles Tendon Tendon retraction 6.5cm proximal Achilles Tendonosis with degeneration of the distal tendon near insertion Achilles Tendonitis with Paratenon thickening Complications Complications: No Admit VTE Documentation VTE Present on Admission: No VTE Mechan Device Prophylaxis: SCD's VTE Pharm Prophylaxis ordered?: Yes
--- NOTE | 2024-03-24 19:56 | PCM.POSTANE2 ---
Anesthesia Postop Eval I Sum Postop Eval Completion status Anesthesia document: Postop Eval 1 completed: Yes Anesthesia Postop Eval I Summary Anesthesia Postop Eval I Summary: Anesthesia Postop Eval I: Assessment Summary Airway patent Yes 03/24/24 18:20 Spontaneous unlabored Yes 03/24/24 18:20 respirations Mental status Awake,Confused 03/24/24 18:20 nausea No 03/24/24 18:20 Vomiting No 03/24/24 18:20 Anesthesia Postop Eval I: Fluid Summary Crystalloid volume administer 1,000 03/24/24 18:20 (ml) Colloids volume administered ( ml) Blood Product volume administered (ml) Total IV fluid infused 1,000 03/24/24 18:20 Anesthesia Postop Eval I: Summary Notes Anesthesia Complication No 03/24/24 18:20 Anesthesia Complication Comment: Post-operative progress note Anesthesia: Postop Eval II Evaluation Mental status: Awake and Calm Pain Level: 0 nausea: No Vomiting: No Progress Note Post-operative progress note: Alert and oriented times3 Complications Anesthesia Complication: No
== END 2024-03-24 20:42 | disposition home or self-care (01) ==
LOC: SDC 11:19 → AC 11:20
PROVIDERS: PCP Family Medicine; Referring Provider Student in an Organized Health Care Education/Training Program; Visit Provider Student in an Organized Health Care Education/Training Program
PROC: (CPT 27650; principal; 2024-03-24 12:45)
DX: S86.012A Strain of left Achilles tendon, initial encounter (principal); M76.62 Achilles tendinitis, left leg; R60.0 Localized edema; G89.18 Other acute postprocedural pain; F41.0 Panic disorder [episodic paroxysmal anxiety]; Z90.5 Acquired absence of kidney; I10 Essential (primary) hypertension; F32.A Depression, unspecified; E78.2 Mixed hyperlipidemia
CPT/HCPCS: 27650; 27691; 01472; 27687; 27652; 36415; 73610; 73650; 76000; 80053; 85025; C1713; J2405

== ENCOUNTER → 2024-07-11 | Outpatient (CLI) | payer OTHER, SELFPAY ==
[2024-07-11 13:27] LABS: Hemoglobin A1c 5.8 % (<=5.6)
[2024-07-11 13:36] LABS: Anion Gap 13 (5-15); BUN 15 mg/dL (4-19); BUN/Creat Ratio 18.5 RATIO (10-20); Calcium,Total 9.8 mg/dL (7.6-11.0); Carbon Dioxide 24.3 mmol/L (21.0-32.0); Chloride 102 mmol/L (98-108); Creatinine, Serum 0.78 mg/dL (0.70-1.20); EST Glomerular Filtration Rate 89 (>60); Glucose 89 mg/dL (70-99); Potassium 4.1 mmol/L (3.3-5.1); Sodium Level 139 mmol/L (133-145)
== END | disposition home or self-care (01) ==
LOC: MFPLAB 09:54
PROVIDERS: PCP Nurse Practitioner Family; Referring Provider Nurse Practitioner Family; Visit Provider Nurse Practitioner Family
DX: Z13.1 Encounter for screening for diabetes mellitus (principal); E87.6 Hypokalemia
CPT/HCPCS: 36415; 80048; 83036

== ENCOUNTER 2024-08-04 10:00 | Outpatient (RCR) | payer OTHER, SELFPAY ==
--- NOTE | 2024-05-13 09:04 | HP.PTEVAL ---
Patient's Visit Information Visit Information Visit Information: RADHA BINGHAM is a 58 year old F referred to Physical Therapy by Dr. Winston Cortes DPM with a diagnosis of L achilles rupture repair 03/24/24. Date of Evaluation: 05/13/24 Physical Therapist: Onofre Pulido DPT, OCS, CSCS Visit Plan Frequency: 2x /Week Duration: 2 Months Plan: 2x/week for 4-8 weeks: IE HEP towel toe curls, seated heel toe raises, PROM PF with OP all 2x/day, AROM all directions towom45c/day educated on walking with one crutch Pt is WBAT in boot Please treat with ROM ankle, strength ankle band to HEP, Progression of gait to one crutch, cane and FWB in boot until doctor f/u. gastroc massage and MH, ice to achilles when tolerated. Eventual proprioception and WB strength when allowed by doctor to I. Subjective Subjective: surgery achilles 03/24/24, cast NWB for 4 weeks, then boot standing WB for 2 weeks now can walk and got crutches and is more painful. Had tendonitis for a while then fell Feb 21 and tore achilles. Mosty comfortable until started walking, now using 2 crutches WBAT, was painful at first and slowly improving. Had some pain this am but not bad. HEEP: AP 10 hourly, seated heel lift 10 2x/day. Has WC and uses it at home at times. Sleep is OK. Employed workign from home, computer and doing OK. Hobbies: walking for fitness, sedentary, was going to [employer] prior to last November. Hopes to get rid of boot in 4 weeks. Pain L achilles area.: Pain Intensity (Out of 10): 1 Pain Intensity Range: 0 and 4 Objective Objective: L achilles Walking with two crutches and WBAT L, I. One crutch in R WBAT mod I. Unable to walk with out AD today due to pain and limps considerably. uses cane for 20 feet today WBAT L.CGA. All of these with cam boot on. up and down steps with one rail and one crutch after I trained her today SBA. AROM L ankle 8 DF, 45 PF vs 55 on R. inv 20 vs 30 on R and eversion 8 vs 18 on R. strength PF not tested but contracts, DF 4, inv/ev 4- on L, 4+ on R. Incision is healed well and no signs of redness heat or swelling. reflexees achilles and patella B 2/3 Sensation B LE WNL B big toe L flexion is weak, ext is good and 4/5. Metatarsals moving well B without pain. Balance/Special Test Scores Lower Extremity Functional Score: 29 Goals Goal 1:: AROM L symmetrical to R at ankle Goal Time Frame: 2-4 Weeks Goal 2:: walk with boot FWB without deviations in community Goal Time Frame: 2-4 Weeks Goal 3:: start to wean out of boot when allowed by doctor Goal Time Frame: 4-6 Weeks Goal 4:: Evntual I reciprocal steps and community walking without deeviations Goal Time Frame: 6-8 Weeks Goal 5:: LEEFS score 45 Goal Time Frame: 4-6 Weeks Goal 6:: return to [employer] workout Goal Time Frame: 4-6 Weeks Rehabilitation Potential Physical Therapy Diagnosis: weakness and limited function after recent surgery. Rehabilitation Potential: Good Anticipated Interventions Patient/Client Instruction: Educate patient on: Condition and Plan of Care For the Purpose of:: To decrease pain, To increase ROM, To improve nutrient delivery to tissue, To improve muscle performance and motor function, To increase tolerance to activity/condition/position and To improve gait and locomotor functions Therapeutic Exercise to Include: Strength training, Postural training, Flexibilty training, Passive ROM and Active ROM For the Purpose of:: To decrease pain, To increase ROM, To improve nutrient delivery to tissue, To improve muscle performance and motor function, To increase tolerance to activity/condition/position and To improve gait and locomotor functions Manual Therapy Techniques to Include: Scar massage, Mobilization, Passive ROM and Soft tissue mobilization For the Purpose of:: To decrease pain, To increase ROM and To improve nutrient delivery to tissue Cryotherapy (ice pack, ice massage): Yes Thermo therapy (hot pack): Yes For the Purpose of:: To increase ROM and To improve nutrient delivery to tissue Text: Thank you for the opportunity to evaluate your patient. For Medicare and Medicare HMO plans, please review the plan of care and approve it. It will need to be FAXED BACK to us at [phone] for Medicare purposes. For Medicare only, by signing this I certify the plan of care. Please let me know if there are questions or concerns regarding this plan of care. Physician Signature: Date:
--- NOTE | 2024-07-07 10:54 | HP.PTREVAL_ITS ---
Re-Evaluation Intro: Dr. Winston Cortes, DPM, It has been my pleasure to treat RDAHA BINGHAM over the last 16 visits for L achilles rupture repair 03/24/24. Please see the progress note below for an update on the physical therapy plan of care! Subjective Subjective: Doing well with achilles, not needing cane anymore. Doin all activities she needs to do at home without cane and sleeping well without pain. Willing to continue at [employer] and via HEP. Will see doctor next week. Objective Objective/Function: 51# L pF and 98 on R. Avoiding L push off on gait giving her limp, can correct mildly with cues but to o weak to walk perfeect in l PF. otherwise mobility is good. Has some b ack and hip pain that may need addressed but otherwise needs to cotninue geetting stronger in L PF. New goal walk with push off on L without cueing adn 72# strength L PF. Fair prognosis with compliance at home Plan Plan Plan: f/u one month to ensure progression of L PF strength adn push off with ambulation and progress to S/L heel raises Balance/Gait/Functional tests Balance/Special Test Scores Lower Extremity Functional Score: 59 Goals Goals Goal 1:: AROM L symmetrical to R at ankle Goal Time Frame: 2-4 Weeks Goal Progress: Goal Met Goal 2:: walk with boot FWB without deviations in community Goal Time Frame: 2-4 Weeks Goal Progress: Goal Met Goal 3:: start to wean out of boot when allowed by doctor Goal Time Frame: 4-6 Weeks Goal Progress: Goal Met Goal 4:: Evntual I reciprocal steps and community walking without deeviations Goal Time Frame: 6-8 Weeks Goal Progress: Progressing Goal 5:: LEEFS score 45 Goal Time Frame: 4-6 Weeks Goal Progress: Goal Met Goal 6:: return to [employer] workout Goal Time Frame: 4-6 Weeks Goal Progress: Goal Met Anticipated Interventions Anticipated Interventions Patient/Client Instruction: Educate patient on: Condition and Plan of Care For the Purpose of:: To decrease pain, To increase ROM, To improve nutrient delivery to tissue, To improve muscle performance and motor function, To increase tolerance to activity/condition/position and To improve gait and locomotor functions Therapeutic Exercise to Include: Strength training, Postural training, Flexibilty training, Passive ROM and Active ROM For the Purpose of:: To decrease pain, To increase ROM, To improve nutrient delivery to tissue, To improve muscle performance and motor function, To increase tolerance to activity/condition/position and To improve gait and locomotor functions Manual Therapy Techniques to Include: Scar massage, Mobilization, Passive ROM and Soft tissue mobilization For the Purpose of:: To decrease pain, To increase ROM and To improve nutrient delivery to tissue Cryotherapy (ice pack, ice massage): Yes Thermo therapy (hot pack): Yes For the Purpose of:: To increase ROM and To improve nutrient delivery to tissue Re-Evaluation Ending Re-evaluation ending: Please do not hesitate to contact me at [phone] by phone or if you have questions or concerns regarding this new plan of care! Sincerely, Onofre Pulido, DPT, OCS, CSCS
--- NOTE | 2024-08-04 10:11 | HP.PTDCSUM ---
Discharge Summary D/C summary: It has been my pleasure to treat RADHA BINGHAM referred by Dr. Winston Cortes DPM, with the diagnosis of L achilles rupture repair 03/24/24 for a total of 17 visit(s). Discharge Date: 08/04/24 Please see the following information for a summary of their discharge status. Subjective Subjective: Doing weell and no pain. Saw doctor and he is happy , will see again in a week. Walking and steps seem better, still unable to L heel raise. Lots of questions about balance.No falls. Pain L achilles area.: Pain Intensity (Out of 10): 0 L glute: Pain Intensity (Out of 10): 0 Overall Improvement % Improvement: 75 Objective Objective/Function: walking much betteer and getting some push off with L. steps look to be without deviations today up and down with rail. FW weight shift still veers R and weakere on L, unable to SL heel raise on L, B heel raise looks good. Goals Goal 1:: AROM L symmetrical to R at ankle Goal Progress: Goal Met Goal 2:: walk with boot FWB without deviations in community Goal Progress: Goal Met Goal 3:: start to wean out of boot when allowed by doctor Goal Progress: Goal Met Goal 4:: Evntual I reciprocal steps and community walking without deeviations Goal Progress: Goal Met Goal 5:: LEEFS score 45 Goal Progress: Goal Met Goal 6:: return to [employer] workout Goal Progress: Goal Met Plan Plan: d/c Pt to continue working via HEP and gym D/C Information d/c sentence: If there are questions or concerns regarding this patient's physical therapy, please feel free to call me at [phone]. Thank you for the referral of this patient. Sincerely, Onofre Pulido, DPT, OCS, CSCS Balance/Gait/Functional tests Balance/Special Test Scores Lower Extremity Functional Score: 59 Improvement % Improvement: 75
== END 2024-08-04 19:00 | disposition home or self-care (01) ==
LOC: PT 10:00
PROVIDERS: PCP Family Medicine; Visit Provider Student in an Organized Health Care Education/Training Program
DX: S86.012D Strain of left Achilles tendon, subsequent encounter (principal); Z98.890 Other specified postprocedural states
CPT/HCPCS: 97110; 97140; 97161; 97164; 97530

== ENCOUNTER → 2024-08-15 | Outpatient (CLI) | payer OTHER, SELFPAY ==
[2024-08-15 11:07] LABS: Microalbumin,Random Urine < 12.0 mg/L (NO RANGE EST.); Microalbumin:Creatinine Ratio UNABLE TO CALCULATE mg/g CRE
[2024-08-15 11:12] LABS: ALB/GLOB Ratio 1.6 RATIO (0.9-2.4); AST(SGOT) 21 U/L (<=31); Alanine Aminotransfer ALT/SGPT 19 U/L (<=34); Albumin, Serum 4.5 g/dL (3.5-5.0); Alkaline Phosphatase 119 U/L (35-104); Anion Gap 12 (5-15); BUN 13 mg/dL (4-19); BUN/Creat Ratio 13.8 RATIO (10-20); Calcium,Total 9.8 mg/dL (7.6-11.0); Carbon Dioxide 25.5 mmol/L (21.0-32.0); Chloride 102 mmol/L (98-108); Cholesterol 173 mg/dL (<=200); Creatinine, Serum 0.91 mg/dL (0.70-1.20); EST Glomerular Filtration Rate 74 (>60); Globulin 2.8 g/dL (2.2-4.2); Glucose 96 mg/dL (70-99); High Density Lipoprotein 69 mg/dL; Low Density Lipoprotein Calc. 77 mg/dL; Potassium 4.4 mmol/L (3.3-5.1); Protein, Total 7.3 g/dL (5.9-8.4); Sodium Level 139 mmol/L (133-145); Triglycerides 136 mg/dL; Very Low Density Lipoprotein 27 mg/dL (5-40); cholesterol:hdl ratio screen 2.51
--- OUTSIDE RECORDS SUMMARY | 2024-08-15 19:12 | XMS RPT_ITS | CCD ---
Author Organization [facility]ini[facility] Care Team Providers Care Lpn Instructor Name Role Phone Adrian PROCESS MOLD TECHNICIAN-C, Kathryn Primary Care Provider [phone] Adrian PROCESS MOLD TECHNICIAN-C, Kathryn Attending Provider [phone] Adrian PROCESS MOLD TECHNICIAN-C, Kathryn Referring Provider Nicolasa NIXON, Dr. Naye Funes Primary Care Provider [phone] Dr. Winston Cortes DPM Attending Provider [phone] Nicolasa, Naye S Primary Care Unavailable Winston Cortes Attending Unavailable Adrian PROCESS MOLD TECHNICIAN, Kathryn Primary Care Unavailable Adrian PROCESS MOLD TECHNICIAN, Kathryn Attending Unavailable Adrian DORMAN, Kathryn Referring Unavailable Winston Cortes Attending Unavailable Winston Cortes Referring Unavailable Saurabhiff, Naye S Primary Care Unavailable Jolliff, Naye S Primary Care Unavailable Jolliff, Naye S Attending Unavailable Jocristhianiff, Naye S Referring Unavailable Jolliff, Naye S Primary Care Unavailable Jocristhianiff, Naye S Attending Unavailable Winston Cortes Referring Unavailable Jolliff, Naye S Primary Care Unavailable Jocristhianiff, Naye S Consulting Unavailable Winston Cortes Attending Unavailable SaurabhiffNaye S Attending Unavailable Jolliff, Naye S Referring Unavailable Jolliff, Naye S Primary Care Unavailable Jolliff, Naye S Primary Care Unavailable José Miguel Yang Attending Unavailable Jolliff, Naye S Primary Care Unavailable Shaquille Montague Attending Unavailabl e Allergies Allergy Classification Reported Allergen(s) Allergy Type Date of Onset Reaction(s) Facility (5 sources) oxyCODONE; Translations: [oxycodone HCl] Drug Allergy 06-16-2016 [facility] Medications Current Medications Medication Drug Class(es) Dates Sig (Normalized) Sig (Original) acetaminophen 325 mg / HYDROcodone bitartrate 5 mg oral tablet (6 sources) Opioid Agonist Start: 01-30-2025 take 1 tablet by mouth every eight hours as needed for pain Hydrocodone-Aceta minophen 5-325 mg tablet Active 1 {tbl} PO Q8H as needed for pain 35 March 24, 2024 Start: 06-10-2016 End: 12-06-2022 Hydrocodone-Acetaminophen 1 TABLET tablet Discontinued 1 - 2 {tbl} PO EVERY 6 HOURS NEEDED as needed for Mild-Mod Pain (1-5/10) 60 June 10, 2016 12:00am December 06, 2022 10:00am Start: 06-10-2016 take 1 tablet by gerda th every six hours as needed Hydrocodone-Acetaminophen Active 1 - 2 TABLET PO EVERY 6 HOURS NEEDED 60 June 10, 2016 12:00am acetaminophen 325 mg / oxyCODONE hydrochloride 5 mg oral tablet (1 source) Opioid Agonist Start: 03-24-2024 take 1 tablet by mouth every eight hours as needed for pain Oxycodone-Acetaminophen 5-325 mg tablet Active 1 {tbl} PO Q8H as needed for pain 35 March 24, 2024 amLODIPine 2.5 mg oral tablet (5 sources) Dihydropyridine Calcium Channel Bennie Start: 06-20-2015 take 1 tablet by mouth at bedtime Amlodipine 2.5 MG tablet Active 2.5 mg PO AT BEDTIME June 20, 2015 12:00am aspirin 325 mg oral tablet (1 source) Platelet Aggregation Inhibitor, Nonsteroidal Anti-inflammatory Drug Start: 03-24-2024 take 1 tablet by mouth once daily Aspirin 325 mg tablet Active 325 mg PO DAILY 20 March 24, 2024 1:00am buPROPion hydrochloride 100 mg oral tablet (5 sources) Aminoketone Start: 06-20-2015 take 2 tablets by mouth at bedtime Bupropion Hcl 100 MG tablet Active 200 mg PO AT BEDTIME June 20, 2015 12:00am Start: 06-20-2015 take 200 mg by mouth at bedtim e Bupropion Hcl Active 200 MG PO AT BEDTIME June 20, 2015 12:00am cetirizine hydrochloride 10 mg oral capsule (5 sources) Histamine-1 Receptor Antagonist Start: 05-30-2016 take 1 capsule by mouth once daily Cetirizine (Zyrtec) 10 MG capsule Active 10 mg PO DAILY May 30, 2016 12:00am doxycycline hyclate 100 mg oral tablet (1 source) Tetracycline-cla ss Drug Start: 03-24-2024 take 1 tablet by mouth once daily Doxycycline Hyclate 100 mg tablet Active 100 mg PO DAILY March 24, 2024 1:00am hydroCHLOROthiazide 25 mg oral tablet (5 sources) Thiazide Diuretic Start: 06-20-2015 take 1 tablet by mouth once daily Hydrochlorothiazide 25 MG tablet Active 25 mg PO DAILY June 20, 2015 12:00am meloxicam 15 mg oral tablet (1 source) Nonsteroidal Anti-inflammator y Drug Start: 02-22-2024 take 1 tablet by mouth once daily Meloxicam 15 mg tablet Active 15 mg PO DAILY February 22, 2024 1:00am Frfzjlcsyjkd-Uk-Ruaj-Mi nerals (Multiple Vitamin, Womens) 1 EACH tablet (5 sources) Start: 06-20-2015 take 1 tablet by mouth once daily Lpzqdkmwpjec-Sq-Dlgs-M inerals (Multiple Vitamin, Womens) 1 EACH tablet Active 1 EACH PO DAILY June 20, 2015 2:32pm Start: 06-20-2015 take 1 tablet by gerda th once daily Ykfflmagpgcb-Xy-Uqcs-Minerals (Multiple Vitamin, Womens) 1 EACH tablet Active 1 NMA PO DAILY June 20, 2015 12:00am Start: 06-20-2015 take 1 tablet by gerda th once daily Wnibrtolllov-Rz-Qlna-Minerals (Multiple Vitamin, Womens) 1 EACH tablet Active 1 EACH PO DAILY June 20, 2015 12:00am ondansetron 4 mg disintegrating oral tablet (6 sources) Serotonin-3 Receptor Antagonist Start: 03-24-2024 take 1 tablet by mouth every eight hours as needed for nausea Ondansetron 4 mg tablet,disintegrating Active 4 mg PO Q8H March 24, 2024 1:00am may take with oral pain medication as needed for nausea Start: 06-11-2016 End: 12-06-2022 take 4-8 mg by mouth every six hours as needed for nausea Ondansetron Hcl (Zofran) 4 MG tablet Discontinued 4 - 8 mg PO EVERY 6 HOURS NEEDED as needed for Nausea June 11, 2016 7:37am December 06, 2022 10:01am potassium chloride 10 meq extended release oral tablet (1 source) Start: 12-06-2022 take 2 tablets by mouth once daily Potassium Chloride 10 mEq tablet extended release Active 20 meq PO DAILY December 06, 2022 12:00am rivaroxaban 10 mg oral tablet (2 sources) Factor Xa Inhibitor Start: 06-10-2016 take 1 tablet by mouth once daily Rivaroxaban (Xarelto) 10 MG tablet Active 10 MG PO DAILY@0600 12 June 10, 2016 6:54am rosuvastatin calcium 10 mg oral tablet (1 source) HMG-CoA Reductase Inhibitor Start: 12-06-2022 take 1 tablet by mouth at bedtime Rosuvastatin 10 mg tablet Active 10 mg PO AT BEDTIME December 06, 2022 12:00am sertraline 100 mg oral tablet (5 sources) Serotonin Reuptake Inhibitor Start: 06-20-2015 take 2 tablets by mouth at bedtime Sertraline 100 MG tablet Active 200 mg PO AT BEDTIME June 20, 2015 12:00am Start: 06-20-2015 take 200 mg by mouth at bedtim e Sertraline Active 200 MG PO AT BEDTIME June 20, 2015 12:00am Completed/Discontinued Medications Medication Drug Class(es) Dates Sig (Normalized) Sig (Original) amoxicillin 875 mg / clavulanate 125 mg oral tablet (10 sources) Penicillin-class Antibacterial Start: 02-26-2021 End: 03-08-2021 Amoxicillin-Pot Clavulanate (Augmentin) 875-125 mg tablet Discontinued 1 {tbl} PO Q12H 20 February 26, 2021 1:00am March 07, 2021 1:00am March 08, 2021 1:01am Start: 06-16-2016 End: 12-06-2022 Amoxicillin-Pot Clavulanate 1 EACH tablet Discontinued 1 {tbl} PO TWICE A DAY June 16, 2016 12:00am December 06, 2022 9:59am Start: 06-16-2016 take 1 tablet by gerda th twice daily Amoxicillin-Pot Clavulanate Active 1 TABLET PO TWICE A DAY June 16, 2016 12:00am diclofenac sodium 50 mg delayed release oral tablet (5 sources) Nonsteroidal Anti-inflammatory Drug Start: 06-20-2015 End: 07-17-2015 take 1 tablet by mouth twice daily at mealtime Diclofenac Sodium 50 MG tablet Discontinued 50 mg PO TWICE DAILY WITH MEALS June 20, 2015 12:00am July 17, 2015 11:07am estrogens, esterified (retirement) 0.625 mg / methylTESTOSTERone 1.25 mg oral tablet (5 sources) Androgen Start: 06-20-2015 End: 12-06-2022 Estrogens-Methyl testosterone 1 EACH tablet Discontinued 1 {tbl} PO DAILY June 20, 2015 12:00am December 06, 2022 9:59am Start: 06-20-2015 take 1 tablet by gerda th once daily Estrogens-Methyltestosterone Active 1 TA BLET PO DAILY June 20, 2015 12:00am fluconazole 150 mg oral tablet (10 sources) Azole Antifungal Start: 02-26-2021 End: 02-22-2024 Fluconazole (Diflucan) 150 mg tablet Discontinued 150 mg PO Every 3 Days February 26, 2021 1:00am February 22, 2024 7:02pm may repeat second dose 72 hrs after first dose if symptoms persist Start: 06-16-2016 End: 12-06-2022 take 1 tablet by mouth once daily Fluconazole 100 MG tablet Discontinued 100 mg PO DAILY June 16, 2016 12:00am December 06, 2022 10:00am abuse-deterrent 12 hr oxyCODONE hydrochloride 10 mg extended release oral tablet (5 sources) Opioid Agonist Start: 06-10-2016 End: 12-06-2022 take 1 tablet by mouth twice daily Oxycodone (Oxycontin) 10 MG tablet Discontinued 10 mg PO TWICE A DAY June 10, 2016 12:00am December 06, 2022 9:59am predniSONE 20 mg oral tablet (1 source) Start: 12-09-2023 End: 02-22-2024 take 3 tablets by mouth once daily Prednisone 20 mg tablet Discontinued 60 mg PO DAILY 12 09December 09, 2023 12:00am February 22, 2024 7:02pm valACYclovir 1000 mg oral tablet (1 source) Herpesvirus Nucleoside Analog DNA Polymerase Inhibitor, Herpes Simplex Virus Nucleoside Analog DNA Polymerase Inhibitor, Herpes Zoster Virus Nucleoside Analog DNA Polymerase Inhibitor Start: 12-09-2023 End: 02-22-2024 Valacyclovir 1 gram tablet Discontinued 1000 mg PO THREE TIMES A DAY December 09, 2023 12:00am February 22, 2024 7:02pm Problems Active Problems Problem Classification Problem Date Documented Date Episodic/Chronic Disorders of lipid metabolism (1 source) Mixed hyperlipidemia; Translations: [Mixed hyperlipidemia] Onset: 12-09-2023 Chronic E Codes: Fall (3 sources) Fall; Translations: [Unspecified fall, initial encounter] 12-28-2021 Episodic Essential hypertension (5 sources) Hypertensive disorder; Translations: [Essential (primary) hypertension] 07-16-2015 Chronic Mood disorders (5 sources) Depressive disorder; Translations: [Depression] 12-20-2021 Chronic Comment on above: ON MED Open wounds of head; neck; and trunk (3 sources) Laceration of oral cavity; Translations: [Laceration without foreign body of oral cavity, initial encounter] 12-28-2021 Episodic Other connective tissue disease (5 sources) History of total knee arthroplasty; Translations: [Presence of right artificial knee joint] 12-20-2021 Chronic Other connective tissue disease (1 source) Achilles degeneration; Translations: [Other specified disorders of synovium and tendon, other site] 03-24-2024 Episodic Other connective tissue disease (1 source) Left achilles tendonitis; Translations: [Achilles tendinitis, left leg] 03-24-2024 Episodic Other connective tissue disease (1 source) Foot pain; Translations: [Pain in left foot] 03-24-2024 Episodic Other injuries and conditions due to external causes (3 sources) Closed injury of head; Translations: [Unspecified injury of head, initial encounter] 12-28-2021 Episodic Other nervous system disorders (1 source) Acute postoperative pain; Translations: [Other acute postprocedural pain] 03-24-2024 Episodic Other nervous system disorders (1 source) Webber's palsy; 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 Other screening for suspected conditions (not mental disorders or infectious disease) (2 sources) Encounter for screening for diabetes mellitus; Translations: [Encounter for screening mammogram for malignant neoplasm of breast] Onset: 09-17-2023 Episodic Other upper respiratory infections (6 sources) Acute sinusitis; Translations: [Acute sinusitis, unspecified] 02-26-2021 Episodic Residual codes; unclassified (1 source) Edema of left lower leg; Translations: [Localized edema] 03-24-2024 Episodic Past or Other Problems Problem Classification Problem Date Documented Da te Episodic/Chronic Other connective tissue disease (1 source) Facial weakness; Translations: [Facial weakness] Onset: 01-15-2024 Episodic Sprains and strains (7 sources) Strain of calf muscle; Translations: [Strain of other muscle(s) and tendon(s) at lower leg level, unspecified leg, initial encounter] Onset: 04-13-2024 05-11-2014 Episodic Superficial injury; contusion (11 sources) Contusion of lower limb; Translations: [Contusion of unspecified lower leg, initial encounter] Onset: 03-17-2024 12-28-2021 Episodic Results Test Name Value Interpretation Reference Range Facility PT D/C Summary (1)on 025 PT D/C Summary (1) [facility] [address] [place] [address] / REHABILITATION SERVICES DISCHARGE SUMMARY MR#: [id number] Acct: [id number] Name: RADHA BINGHAM Rep #: [id number] : 1965 58 From: Onofre Pulido DPT, OCS, CSCS Referring Dr.: LENY Cortes Status: RE G RCR Insurance: [employer] Discharge Summary D/C summary: It has been my pleasure to treat RADHA BINGHAM referred by Dr. Winston Cortes, LENY, with the diagnosis of L achilles rupture repair 03/24/24 for a total of 17 visit(s). Discharge Date: 08/04/24 Please see the following information for a summary of their discharge status. Subjective Subjective: Doing weell and no pain. Saw doctor and he is happy , will see again in a week. Walking and steps seem better, still unable to L heel raise. Lots of questions about balance.No falls. Pain L achilles area.: Pain Intensity (Out of 10): 0 L glute: Pain Intensity (Out of 10): 0 Overall Improvement % Improvement: 75 Objective Objective/Function: walking much betteer and getting some push off with L. steps look to be without deviations today up and down with rail. FW weight shift still veers R and weakere on L, unable to SL heel raise on L, B heel raise looks good. Goals Goal 1:: AROM L symmetrical to R at ankle Goal Progress: Goal Met Goal 2:: walk with boot FWB without deviations in community Goal Progress: Goal Met Goal 3:: start to wean out of boot when allowed by doctor Goal Progress: Goal Met Goal 4:: Evntual I reciprocal steps and community walking without deeviations Goal Progress: Goal Met Goal 5:: LEEFS score 45 Goal Progress: Goal Met Goal 6:: return to [employer] workout Goal Progress: Goal Met Plan Plan: d/c Pt to continue working via [facility] and gym D/C Information d/c sentence: If there are questions or concerns regarding this patient's physical therapy, please feel free to call me at [phone]. Thank you for the referral of this patient. Sincerely, Onofre Pulido, DPT, OCS, CSCS Balance/Gait/Function al tests Balance/Special Test Scores Lower Extremity Functional Score: 59 Improvement % Improvement: 75 08/04/24 1011 CC: LENY Cortes; Dr. Naye Baldwin MD EBG Signed Normal [facility] Anion gap in Serum or Plasma Ordered By: Kathryn Campbell on 07-11-2024 Anion gap [Moles/Vol] 13 mmol/L - [facility] BUN/creatinine ratioOrdered By: Kathryn Campbell on 07-11-2024 Urea nitrogen/Creatinine [Mass ratio] 18.5 mg/mg - [facility] Basic Metabolic Profile (BMP )on 07-11-2024 BUN/CRE 18.5 RATIO Normal - [facility] Comment on above: Order Comment: Order Date: 07/11/24Order Info: 0667-1 - BMP Performed By: #### L [id number], L500.2500 ####[facility] [address] [place], [address] Calcium [Mass/Vol] 9.8 mg/dL Normal 7.6-11.0 [facility] Comment on above: Order Comment: Order Date: 07/11/24Order Info: 0667-1 - BMP Performed By: #### L [id number], L500.2500 ####[facility] [address] [place], [address] Chloride [Moles/Vol] 102 mmol/L Normal 98-108 [facility] Comment on above: Order Comment: Order Date: 07/11/24Order Info: 666-02 - BMP Performed By: #### L [id number], L500.2500 ####[facility] [address] [place], [address] CO2 [Moles/Vol] 24.3 mmol/L Normal 21.0-32.0 [facility] Comment on above: Order Comment: Order Date: 07/11/24Order Info: 666-02 - BMP Performed By: #### L [id number], L500.2500 ####[facility] [address] [place], [address] Creatinine [Mass/Vol] 0.78 mg/dL Normal 0.70-1.20 [facility] Comment on above: Order Comment: Order Date: 07/11/24Order Info: 666-02 - BMP Performed By: #### L [id number], L500.2500 ####[facility] [address] [place], [address] GAP 13 Normal 5-15 [facility] Comment on above: Order Comment: Order Date: 07/11/24Order Info: 666-02 - BMP Performed By: #### L [id number], L500.2500 ####[facility] [address] [place], [address] GFR/1.73 sq M.predicted among non-blacks MDRD (S/P/Bld) [Vol rate/Area] 89 mL/min/{1.73_m2} Normal >60 [facility] Comment on above: Order Comment: Order Date: 07/11/24Order Info: 06 - BMP Result Comment: mL/m in/1.73m2 CKD-EPI Creatinine Equation (2020) Performed By: #### L [id number], L500.2500 ####[facility] [address] [place], [address] Glucose [Mass/Vol] 89 mg/dL Normal 70-99 [facility] Comment on above: Order Comment: Order Date: 07/11/24Order Info: 666- - BMP Performed By: #### L [id number], L500.2500 ####[facility] [address] [place], [address] Potassium [Moles/Vol] 4.1 mmol/L Normal 3.3-5.1 [facility] Comment on above: Order Comment: Order Date: 07/11/24Order Info: 666-02 - BMP Performed By: #### L [id number], L500.2500 ####[facility] [address] [place], [address] Sodium [Moles/Vol] 139 mmol/L Normal 133-145 [facility] Comment on above: Order Comment: Order Date: 07/11/24Order Info: 666-02 - BMP Performed By: #### L [id number], L500.2500 ####[facility] [address] [place], [address] Urea nitrogen [Mass/Vol] 15 mg/dL Normal 4-19 [facility] Comment on above: Order Comment: Order Date: 07/11/24Order Info: 666-02 - BMP Performed By: #### L [id number], L500.2500 ####[facility] [address] [place], [address] Carbon dioxide, total [Moles /volume] in Central venous bloodOrdered By: Kathryn Campbell on 07-11-2024 CO2 [Moles/Vol] 24.3 mmol/L 21.0-32.0 [facility] Chloride assayOrdered By: Alli Campbell on 07-11-2024 Chloride [Moles/Vol] 102 mmol/L 98-108 [facility] Glomerular filtration rate ( GFR) estimation/1.73 sq m using serum, plasma, or whole bOrdered By: Kathryn Campbell on 07-11-2024 GFR/1.73 sq M.predicted among non-blacks MDRD (S/P/Bld) [Vol rate/Area] 89 mL/min/{1.73_m2} >60 [facility] Comment on above: mL/min/1.73m2 CKD-EP I Creatinine Equation (2020) Hemoglobin A1con 07-11-2024 HbA1c (Bld) [Mass fraction] 5.8 % High <=5.6 [facility] Comment on above: Order Comment: Order Date: 07/11/24Order Info: 4548-4 - A1C Result Comment: Norm al < 5.7 % Prediabetic 5.7 - 6.4 % Diabetic >or= 6.5 % Please note range changes. Performed By: #### L [id number], L500.2500 ####[facility] [address] [place], [address] Hemoglobin A1c percentageOrd ered By: Kathryn Campbell on 07-11-2024 HbA1c (Bld) [Mass fraction] 5.8 % High <5.7 [facility] Comment on above: Normal < 5.7 % Predi abetic 5.7 - 6.4 % Diabetic >or= 6.5 % Please note range changes. Potassium measurement (mass/ volume)Ordered By: Kathryn Campbell on 07-11-2024 Potassium (Unsp spec) [Mass/Vol] 4.1 mmol/L 3.3-5.1 [facility] Serum creatinine measurement (mass/volume)Ordered By: Kathryn Campbell on 07-11-2024 Creatinine [Mass/Vol] 0.78 mg/dL 0.70-1.20 [facility] Serum glucose measurement (m ass/volume)Ordered By: Kathryn Campbell on 07-11-2024 Glucose [Mass/Vol] 89 mg/dL 70-99 [facility] Serum or plasma calcium bibiana urement (mass/volume)Ordered By: Kathryn Campbell on 07-11-2024 Calcium [Mass/Vol] 9.8 mg/dL 7.6-11.0 [facility] Serum or plasma urea nitroge n measurement (mass/volume)Ordered By: Kathryn Campbell on 07-11-2024 Urea nitrogen [Mass/Vol] 15 mg/dL 4- [facility] Sodium levelOrdered By: Kathryn Campbell on 07-11-2024 Sodium [Moles/Vol] 139 mmol/L 133-145 [facility] Re-Evaluation - PT (1)on Re-Evaluation - PT (1) [facility] [address] [place] [address] / REEVALUATION / MEDICARE RECERTIFICATION PHYSICAL THERAPY MR#: [id number] Acct: [id number] Name: RADHA BINGHAM Rep #: [id number] : 1965 58 From: Onofre Pulido DPT, OCS, CSCS Referring Dr.: LENY Cortes Status:REG RCR Insurance: [employer] Re-Evaluation Intro: Dr. Winston Cortes, LENY, It has been my pleasure to treat RADHA BINGHAM over the last 16 visits for L achilles rupture repair 03/24/24. Please see the progress note below for an update on the physical therapy plan of care! Subjective Subjective: Doing well with achilles, not needing cane anymore. Doin all activities she needs to do at home without cane and sleeping well without pain. Willing to continue at [employer] and via [facility]. Will see doctor next week. Objective Objective/Function: 51# L pF and 98 on R. Avoiding L push off on gait giving her limp, can correct mildly with cues but too weak to walk perfeect in l PF. otherwise mobility is good. Has some b ack and hip pain that may need addressed but otherwise needs to cotninue geetting stronger in L PF. New goal walk with push off on L without cueing adn 72# strength L PF. Fair prognosis with compliance at home Plan Plan Plan: f/u one month to ensure progression of L PF strength adn push off with ambulation and progress to S/L heel raises Balance/Gait/Function al tests Balance/Special Test Scores Lower Extremity Functional Score: 59 Goals Goals Goal 1:: AROM L symmetrical to R at ankle Goal Time Frame: 2-4 Weeks Goal Progress: Goal Met Goal 2:: walk with boot FWB without deviations in community Goal Time Frame: 2-4 Weeks Goal Progress: Goal Met Goal 3:: start to wean out of boot when allowed by doctor Goal Time Frame: 4-6 Weeks Goal Progress: Goal Met Goal 4:: Evntual I reciprocal steps and community walking without deeviations Goal Time Frame: 6-8 Weeks Goal Progress: Progressing Goal 5:: LEEFS score 45 Goal Time Frame: 4-6 Weeks Goal Progress: Goal Met Goal 6:: return to [employer] workout Goal Time Frame: 4-6 Weeks Goal Progress: Goal Met Anticipated Interventions Anticipated Interventions Patient/Client Instruction: Educate patient on: Condition and Plan of Care For the Purpose of:: To decrease pain, To increase ROM, To improve nutrient delivery to tissue, To improve muscle performance and motor function, To increase tolerance to activity/condition/po sition and To improve gait and locomotor functions Therapeutic Exercise to Include: Strength training, Postural training, Flexibilty training, Passive ROM and Active ROM For the Purpose of:: To decrease pain, To increase ROM, To improve nutrient delivery to tissue, To improve muscle performance and motor function, To increase tolerance to activity/condition/po sition and To improve gait and locomotor functions Manual Therapy Techniques to Include: Scar massage, Mobilization, Passive ROM and Soft tissue mobilization For the Purpose of:: To decrease pain, To increase ROM and To improve nutrient delivery to tissue Cryotherapy (ice pack, ice massage): Yes Thermo therapy (hot pack): Yes For the Purpose of:: To increase ROM and To improve nutrient delivery to tissue Re-Evaluation Ending Re-evaluation ending: Please do not hesitate to contact me at [phone] by phone or if you have questions or concerns regarding this new plan of care! Sincerely, Onofre Pulido, ZEUS, OCS, CSCS 07/07/24 1054 CC: LENY Cortes; Dr. Naye Baldwin MD EBG Signed For Medicare only, by signing this I certify the plan of care. Physicians Signature Date Normal [facility] Inital Evaluation (1) - PTon 05-13-2024 Inital Evaluation (1) - PT [facility] [address] [place] [address] / REHABILITATION SERVICES INITIAL EVALUATION MR#: [id number] Acct: [id number] Name: RADHA BINGHAM Rep #: [id number] : 1965 58 From: Onofre Pulido DPT, OCS, CSCS Referring Dr.: Winston Cortes DPM Status: RE G RCR Insurance: [facility] [employer] Patient's Visit Information Visit Information Visit Information: RADHA BINGHAM is a 58 year old F referred to Physical Therapy by Dr. Winston Cortes DPM with a diagnosis of L achilles rupture repair 03/24/24. Date of Evaluation: 05/13/24 Physical Therapist: Onofre Pulido DPT, OCS, CSCS Visit Plan Frequency: 2x /Week Duration: 2 Months Plan: 2x/week for 4-8 weeks: IE HEP towel toe curls, seated heel toe raises, PROM PF with OP all 2x/day, AROM all directions [id number]/day educated on walking with one crutch Pt is WBAT in boot Please treat with ROM ankle, strength ankle band to HEP, Progression of gait to one crutch, cane and FWB in boot until doctor f/u. gastroc massage and MH, ice to achilles when tolerated. Eventual proprioception and WB strength when allowed by doctor to I. Subjective Subjective: surgery achilles 03/24/24, cast NWB for 4 weeks, then boot standing WB for 2 weeks now can walk and got crutches and is more painful. Had tendonitis for a while then fell Feb 21 and tore achilles. Mosty comfortable until started walking, now using 2 crutches WBAT, was painful at first and slowly improving. Had some pain this am but not bad. HEEP: AP 10 hourly, seated heel lift 10 2x/day. Has WC and uses it at home at times. Sleep is OK. Employed workign from home, computer and doing OK. Hobbies: walking for fitness, sedentary, was going to [employer] prior to last November. Hopes to get rid of boot in 4 weeks. Pain L achilles area.: Pain Intensity (Out of 10): 1 Pain Intensity Range: 0 and 4 Objective Objective: L achilles Walking with two crutches and WBAT L, I. One crutch in R WBAT mod I. Unable to walk with out AD today due to pain and limps considerably. uses cane for 20 feet today WBAT L.CGA. All of these with cam boot on. up and down steps with one rail and one crutch after I trained her today SBA. AROM L ankle 8 DF, 45 PF vs 55 on R. inv 20 vs 30 on R and eversion 8 vs 18 on R. strength PF not tested but contracts, DF 4, inv/ev 4- on L, 4+ on R. Incision is healed well and no signs of redness heat or swelling. reflexees achilles and patella B 2/3 Sensation B LE WNL B big toe L flexion is weak, ext is good and 4/5. Metatarsals moving well B without pain. Balance/Special Test Scores Lower Extremity Functional Score: 29 Goals Goal 1:: AROM L symmetrical to R at ankle Goal Time Frame: 2-4 Weeks Goal 2:: walk with boot FWB without deviations in community Goal Time Frame: 2-4 Weeks Goal 3:: start to wean out of boot when allowed by doctor Goal Time Frame: 4-6 Weeks Goal 4:: Evntual I reciprocal steps and community walking without deeviations Goal Time Frame: 6-8 Weeks Goal 5:: LEEFS score 45 Goal Time Frame: 4-6 Weeks Goal 6:: return to [employer] workout Goal Time Frame: 4-6 Weeks Rehabilitation Potential Physical Therapy Diagnosis: weakness and limited function after recent surgery. Rehabilitation Potential: Good Anticipated Interventions Patient/Client Instruction: Educate patient on: Condition and Plan of Care For the Purpose of:: To decrease pain, To increase ROM, To improve nutrient delivery to tissue, To improve muscle performance and motor function, To increase tolerance to activity/condition/po sition and To improve gait and locomotor functions Therapeutic Exercise to Include: Strength training, Postural training, Flexibilty training, Passive ROM and Active ROM For the Purpose of:: To decrease pain, To increase ROM, To improve nutrient delivery to tissue, To improve muscle performance and motor function, To increase tolerance to activity/condition/po sition and To improve gait and locomotor functions Manual Therapy Techniques to Include: Scar massage, Mobilization, Passive ROM and Soft tissue mobilization For the Purpose of:: To decrease pain, To increase ROM and To improve nutrient delivery to tissue Cryotherapy (ice pack, ice massage): Yes Thermo therapy (hot pack): Yes For the Purpose of:: To increase ROM and To improve nutrient delivery to tissue Text: Thank you for the opportunity to evaluate your patient. For Medicare and Medicare HMO plans, please review the plan of care and approve it. It will need to be FAXED BACK to us at [phone] for Medicare purposes. For Medicare only, by signing this I certify the plan of care. Please let me know if there are questions or concerns regarding this plan of care. Physician Signature: (more content not included)... Normal [facility] Ankle min 3 Viewson 03-24-19 Ankle min 3 Views [facility] Imaging Services [address] [place] [id number] Ankle min 3 Views MR#: [id number] Acct: [id number] Name: RADHA BINGHAM Rep #: [id number] : 1965 F 58 From: Enoc Porras MD PCP: Dr. Naye Baldwin MD Status: [facility] Study: Ankle min 3 Views Date of Exam: 03/24/24 Exam# [id number] Ordering Dr: Winston Cortes DPM PROCEDURE: ANKLE MIN 3 VIEWS REASON FOR EXAM: Postop left ankle. TECHNIQUE: 3 views of the left ankle COMPARISON: None FINDINGS: No visible fracture. No suspicious bone lesion. Normal alignment. Mortise appears intact. No effusion. Soft tissues are unremarkable. Postsurgical changes to the calcaneus. Soft tissue air which may be postsurgical. Overlying cast. RAD/Ankle min 3 Views IMPRESSION: Postsurgical changes. Reading Location: [facility] CC: LENY Cortes; Dr. Naye Baldwin MD Blog Writer: Signed Normal [facility] Calcaneus min 2 Viewson 02-25 Calcaneus min 2 Views [facility] Imaging Services [address] [place] [address] Calcaneus min 2 Views MR#: [id number] Acct: [id number] Name: RADHA BINGHAM Rep #: [id number] : 1965 F 58 From: Enoc Porras MD PCP: Dr. Naye Baldwin MD Status: REG [facility] Study: Calcaneus min 2 Views Date of Exam: 03/24/24 Exam# [id number] Ordering Dr: Winston Cortes DPM PROCEDURE: CALCANEUS MIN 2 VIEWS REASON FOR EXAM: Fluoroscopy. TECHNIQUE: Fluoroscopic views of the calcaneus. COMPARISON: None. FINDINGS: Fluoroscopic views of the calcaneus. No evidence of acute fracture. RAD/Calcaneus min 2 Views IMPRESSION: As above. Reading Location: [facility] CC: LENY Cortes; Dr. Naye Baldwin MD Blog Writer: Signed Normal [facility] Discharge Instructionon 02-25 Discharge Instruction [facility] Medical Records Department [address] [place] [address] Instructions for Home/Discharge Instructions 03/24/24 1235 MR#: [id number] Acct: [id number] Name: RADHA BINGHAM Rep #: [id number] : 1965 58 From: Winston Cortes DPM PCP: Dr. Naye Baldwin MD Status:REG [facility] Discharge Instructions Diet Discharge Diet: No restrictions DC O2, CPAP, BIPAP needs Home O2 Discharge instructions: No Dressing / Incision Discharge Activity: May Not Drive (May not drive until off of narcotic medication. Physician will clear patient for privileges at later date.), May Shower (Please utilize cast bag covering when showering to keep dressings clean, dry, and intact to the left lower extremity) and Use Walker (Please utilize walker, knee scooter, wheelchair to remain nonweightbearing to the left lower extremity) Weight Bearing Status: No weight bearing (Please remain nonweightbearing to the left lower extremity with the assistance of walker, knee scooter, or wheelchair) Keep extremity elevated above heart level: Left Leg (Please elevate left lower extremity at all times of rest for postoperative edema control) Dressing / Incision Call your doctor if you observe: Fever of 101 or Higher, Shortness of breath, Chest pain, Calf discomfort and Uncontrolled pain Change Dressing in: do not change dressing Remove Dressing in: leave in place till F/U (Do not change dressing. Leave dressing clean, dry, and intact to the left foot/leg. Physician will change dressing at first postoperative appointment) Cleanse incision/area with: Do not get Incision Wet and Keep Dressing Clean Dry (Do not get site wet. Please keep all dressings clean, dry, and intact to the left lower extremity and utilize cast bag when showering to remain compliant.) Follow Up Care Please Follow Up With: Winston Cortes DPM When: Patient has first postoperative appointment with me in office early next week Test Results: Test results from this visit will be discussed in further detail at your follow-up appointment, if applicable. Discharge Plan Admission Attending Provider: Winston Cortes Primary Care Provider: Naye Baldwin Instructions Print Language: Faroese Discharge Orders/Prescriptions Prescriptions: New doxycycline hyclate 100 mg tablet 100 mg PO DAILY Qty: 10 0RF aspirin 325 mg tablet 325 mg PO DAILY 20 Days Qty: 20 0RF oxycodone-acetaminoph en 5-325 mg tablet 1 tab PO Q8H PRN (Reason: pain) 7 Days Qty: 35 0RF ondansetron 4 mg tablet,disintegrating 4 mg PO Q8H Qty: 35 0RF Rx Instructions: may take with oral pain medication as needed for nausea No Action potassium chloride 10 mEq tablet extended release 20 meq PO DAILY rosuvastatin 10 mg tablet 10 mg PO QHS sertraline 100 MG tablet 200 mg PO QHS Patient Comments: mood amlodipine 2.5 MG tablet 2.5 mg PO QHS Patient Comments: high blood pressure bupropion HCl 100 MG tablet 200 mg PO QHS Patient Comments: mood hydrochlorothiazide 25 MG tablet 25 mg PO DAILY Patient Comments: high blood pressure Multiple Vitamin, Womens 1 EACH tablet 1 ea PO DAILY Patient Comments: supplement Zyrtec 10 MG capsule 10 mg PO DAILY meloxicam 15 mg tablet 15 mg PO DAILY Referrals / Follow Up: Naye Baldwin MD [Primary Care Provider] - Disposition Disposition (needs filled in before D/C Order can be placed): Home, Self Care 03/24/241844 Winston Cortes DPAnabel CC: Dr. Naye Baldwin MD Signed [facility] MR/POSTOP.ANEon 03-24-2024 MR/POSTOP.[facility] Medical Records Department [address] [place] [address] Anesthesia Postop Eval I 03/24/241818 MR#: [id number] Acct: [id number] Name: RADHA BINGHAM Rep #: [id number] : 1965 58 From: Cuco Carter MD PCP: Dr. Naye Baldwin MD Status:REG [facility] Y Race: C Location: [place] [address] Anesthesia: Postop Eval I Current Vital Signs Temperature: 97.4 F Pulse Rate: 112 Blood Pressure: 133/77 Respiratory Rate: 16 Pulse Ox: 98 Oxygen Delivery Method: Room Air Assessment Airway patent: Yes Spontaneous unlabored respirations: Yes Mental status: Awake and Confused nausea: No Vomiting: No Anesthesia Complication: No Fluid Hydration Crystalloid volume administer (ml): 1,000 Total IV fluid infused: 1,000 Progress Note Anesthesia document: Postop Eval 1 completed: Yes 03/24/241819 Date Cuco Carter MD Cosigner Signature: Date CC: Signed [facility] [id number] 03-24-2024 MR/POSTOPAN2 [facility] Medical Records Department [address] [place] [address] Anesthesia Postop Eval II 03/24/241955 MR#: [id number] Acct: [id number] Name: RADHA BINGHAM Rep #: [id number] : 1965 58 From: Cuco Carter MD PCP: Dr. Naye Baldwin MD Status:REG [facility] Y Race: C Location: [place] [address] Anesthesia Postop Eval I Sum Postop Eval Completion status Anesthesia document: Postop Eval 1 completed: Yes Anesthesia Postop Eval I Summary Anesthesia Postop Eval I Summary: Anesthesia Postop Eval I: Assessment Summary Airway patent Yes 03/24/24 18:20 Spontaneous unlabored Yes 03/24/24 18:20 respirations Mental status Awake,Confused 03/24/24 18:20 nausea No 03/24/24 18:20 Vomiting No 03/24/24 18:20 Anesthesia Postop Eval I: Fluid Summary Crystalloid volume administer 1,000 03/24/24 18:20 (ml) Colloids volume administered ( ml) Blood Product volume administered (ml) Total IV fluid infused 1,000 03/24/24 18:20 Anesthesia Postop Eval I: Summary Notes Anesthesia Complication No 03/24/24 18:20 Anesthesia Complication Comment: Post-operative progress note Anesthesia: Postop Eval II Evaluation Mental status: Awake and Calm Pain Level: 0 nausea: No Vomiting: No Progress Note Post-operative progress note: Alert and oriented times3 Complications Anesthesia Complication: No 03/24/241956 Date Cuco Carter MD Cosigner Signature: Date CC: Signed Normal [facility] Operative Reporton 5 Operative Report [facility] Medical Records Department [address] [place] [address] Operative Report 03/24/24 1850 MR#: [id number] Acct: [id number] Name: RADHA BINGHAM Rep #: [id number] : 1965 58 From: Winston Cortes DPM PCP: Dr. Naye Bladwin MD Status:REG [facility] Location: [place] [address] Problems Associated Problem List Diagnoses (1) Rupture of left Achilles tendon: (2) Achilles tendinitis of left lower extremity: (3) Degeneration of Achilles tendon: (4) Edema of left lower leg: (5) Pain in left foot: (6) Other acute postprocedural pain: Operative Report (Standard) Operative Information Date of Procedure: 03/24/24 Pre-Operative Diagnosis: 1. Acute Achilles tendon rupture left foot 2. Achilles tendinitis left foot 3. Degeneration left Achilles tendon 4. Swelling/edema left foot/leg 5. Pain left foot Post-Operative Diagnosis: 1. Acute Achilles tendon rupture left foot 2. Achilles tendinitis left foot 3. Degeneration left Achilles tendon 4. Swelling/edema left foot/leg 5. Pain left foot Surgery/Procedure Performed: 1. Primary repair of acute Achilles tendon rupture Left foot 2. Flexor hallucis longus (FHL) tendon transfer Left foot 3. Aram gastrocnemius muscle release Left foot 4. Turndown flap Achilles tendon Left foot 5. Implant of dermal graft Left Achilles tendon 6. Debridement Left Achilles tendinosis 7. Application of AO splint Left Lower Extremity manager hospital: Yes Craft Recruiter: Dr. Casey Pritchard DPM PGY-2 Tasks completed by nurse's assistant: Closing, Dissecting tissue and Implanting device Additional help desk assistant?: No Type of Anesthesia: General/Regional (Popliteal block performed by anesthesia team at end of case) RN Documented Start/Stop Times: Operation Date: 03/24/24 13:00 Case Time Into Pre-Op 03/24/24 11:37 Anesthesia Start 03/24/24 13:13 Into Room 03/24/24 13:13 Out of Pre-Op 03/24/24 13:13 Procedure Start 03/24/24 13:49 Procedure End 03/24/24 17:58 Anesthesia End 03/24/24 18:14 Into Recovery 03/24/24 18:14 Out of Room 03/24/24 18:14 Procedure Start Time: 13:49 Procedure Stop Time: 17:58 Select all DRAINS/GRAFTS/IMPLANT S that apply: Graft Graft details: Aflex Dermal Allograft 40mm x 70mm x 1.5mm thick and Implanted device Implanted device details: 7.0 mm bio composite tenodesis screw for FHL tendon 2 x 3.9 mm bio composite swivel lock for Achilles tendon attachment Estimated Blood Loss: <10mL Specimen collected: No Description of surgery: HPI/indication: Patient is a 58-year-old female who had been following in office over last 6 months with Achilles tendinitis of the left lower extremity. She had prior underwent physical therapy with improvement noted and continued stretching conservatively and utilizing night splint to aid in stretching which led to improvement in addition to supportive shoe gear and orthotic insert. Patient did have flareup of the Achilles tendinitis due to failure to continue the stretching program in addition to taking a misstep. She did return in October and underwent continued conservative care. In December she did ask for corticosteroid injection and this was discussed in detail in addition to potential of acute rupture she was understanding for this and did undergo a local injection consisting of 2 cc one-to-one mixture of lidocaine and dexamethasone. Tendon was noted to be intact prior to injection. She was instructed to rest the remainder of the day and continue conservative treatment of continued stretching the day after. Did return in January stating injection did have some minimal improvement. Achilles tendon was noted to be intact at this time with some thickening which was consistent with prior examinations. She was instructed to continue the conservative treatment and was prescribed oral steroid and to resume oral anti- inflammatory following completion of the steroid. Discussed at that time getting into physical therapy for continued conservative treatment. On 02/22/2024 she reports working in her office in which she tripped pulling a bookshelf down on top of her. Patient states she felt immediate pain in the calf area but was able to ambulate and did go to the ER where radiographs were negative for fracture and she was discharged home. She did follow-up with me in office 02/26/2024 and radiographs were obtained demonstrating soft tissue edema with obliteration of Cager's triangle consistent with an acute Achilles tendon rupture. Examination also demonstrated acute palpable dell of the Achilles tendon with pain to palpation distal to the calf at the musculotendinous junction. Delve measured between 2.5 cm and 3 cm at estimate. Positive Wayne test noted versus the contralateral limb. She was immediately immobilized in a cam boot and instructed to remain nonweightbearing to the left lower extremity. MRI was or (more content not included)... Normal [facility] Chest PA and Lateralon 03-16 Chest PA and Lateral [facility] Imaging Services [address] [place], [place] [address] Chest PA and Lateral MR#: [id number] Acct: [id number] Name: RADHA BINGHAM Rep #: [id number] : 1965 F 58 From: Adrián winston DO PCP: Dr. Naye Baldwin MD Status: REG CLI Study: Chest PA and Lateral Date of Exam: 03/16/24 Exam# [id number] Ordering Dr: Naye Baldwin MD [id number] EXAM: XR CHEST, 2 VIEWS CLINICAL INDICATION: pre-op clearance TECHNIQUE: Frontal and lateral views of the chest. COMPARISON: CTA chest, 06/16/2016. FINDINGS: LUNGS AND PLEURAL SPACES: No significant abnormality. No consolidation or edema. No pneumothorax. No effusion. HEART: No significant abnormality. Cardiac silhouette not enlarged. MEDIASTINUM: Central airways and mediastinal contour are unremarkable. BONES/JOINTS: Degenerative changes in the spine and scoliotic curvature. No acute fracture. SOFT TISSUES: No significant abnormality. VASCULATURE: Vascular calcifications. RAD/Chest PA and Lateral IMPRESSION: No acute findings in the chest. Electronically Signed: Adrián Reece DO at 23:57 EST , CC: Dr. Naye Baldwin MD Blog Writer: Signed Normal [facility] CBC W/Diff, Automatedon 02-24 Absolute Lymph 3.05 X10 3/uL Normal 0.83-4.51 [facility] Comment on above: Order Comment: Order Date: 03/14/24 Order Info: 0184-1 - CBCD Performed By: #### L 100.0100, L500.4050 #### [facility] Laboratory [address] [place], [address] Absolute Neut 4.1 X10 3/uL Normal 2.0-7.7 [facility] Comment on above: Order Comment: Order Date: 03/14/24 Order Info: 0184-1 - CBCD Performed By: #### L 100.0100, L500.4050 #### [facility] [address] [place], [address] Basophils/100 WBC (Bld) 0.5 % Normal 0-1 [facility] Comment on above: Order Comment: Order Date: 03/14/24 Order Info: 0184-1 - CBCD Performed By: #### L 100.0100, L500.4050 #### [facility] [address] [place], [address] Eosinophils/100 WBC (Bld) 2.5 % Normal 0-5 [facility] Comment on above: Order Comment: Order Date: 03/14/24 Order Info: 0184-1 - CBCD Performed By: #### L 100.0100, L500.4050 #### [facility] [address] [place], [address] Erythrocyte distribution width (RBC) [Ratio] 12.8 % Normal 11.6-14.6 [facility] Comment on above: Order Comment: Order Date: 03/14/24 Order Info: 0184-1 - CBCD Performed By: #### L 100.0100, L500.4050 #### [facility] [address] [place], [address] Hematocrit (Bld) [Volume fraction] 40.9 % Normal 37-47 [facility] Comment on above: Order Comment: Order Date: 03/14/24 Order Info: 0184-1 - CBCD Performed By: #### L 100.0100, L500.4050 #### [facility] [address] [place], [address] Hemoglobin (Bld) [Mass/Vol] 13.8 g/dL Normal 12.0-15.0 [facility] Comment on above: Order Comment: Order Date: 03/14/24 Order Info: 0184-1 - CBCD Performed By: #### L 100.0100, L500.4050 #### [facility] [address] [place], [address] IG% 0.100 Normal 0.0-0.9 [facility] Comment on above: Order Comment: Order Date: 03/14/24 Order Info: 0184- - CBCD Result Comment: IG% - Immature Granulocytes (promyelocytes, myelocytes and metamyelocytes) > 1% indicates that a LEFT SHIFT is Present. Performed By: #### L 100.0100, L500.4050 #### [facility] [address] [place], [address] Lymphocytes/100 WBC (Bld) 38.3 % Normal 19-41 [facility] Comment on above: Order Comment: Order Date: 03/14/24 Order Info: 0184- - CBCD Performed By: #### L 100.0100, L500.4050 #### [facility] [address] [place], [address] MCH (RBC) [Entitic mass] 30.8 pg Normal 27.0-32.0 [facility] Comment on above: Order Comment: Order Date: 03/14/24 Order Info: 0184- - CBCD Performed By: #### L 100.0100, L500.4050 #### [facility] [address] [place], [address] MCHC (RBC) [Mass/Vol] 33.7 g/dL Normal 32-36 [facility] Comment on above: Order Comment: Order Date: 03/14/24 Order Info: 0184-1 - CBCD Performed By: #### L 100.0100, L500.4050 #### [facility] [address] [place], [address] MCV (RBC) [Entitic vol] 91.3 fL Normal 81-99 [facility] Comment on above: Order Comment: Order Date: 03/14/24 Order Info: 0184-1 - CBCD Performed By: #### L 100.0100, L500.4050 #### [facility] [address] [place], [address] Monocytes/100 WBC (Bld) 6.8 % Normal 0-10 [facility] Comment on above: Order Comment: Order Date: 03/14/24 Order Info: 0184-1 - CBCD Performed By: #### L 100.0100, L500.4050 #### [facility] [address] [place], [address] Neutrophils/100 WBC (Bld) 51.8 % Normal 47-70 [facility] Comment on above: Order Comment: Order Date: 03/14/24 Order Info: 0184-1 - CBCD Performed By: #### L 100.0100, L500.4050 #### [facility] [address] [place], [address] Nucleated RBC (Bld) [#/Vol] 0 10*3/uL Normal 0-5 [facility] Comment on above: Order Comment: Order Date: 03/14/24 Order Info: 0184-1 - CBCD Performed By: #### L 100.0100, L500.4050 #### [facility] [address] [place], [address] Platelet mean volume (Bld) [Entitic vol] 10.7 fL Normal 6.2-12.0 [facility] Comment on above: Order Comment: Order Date: 03/14/24 Order Info: 0184-1 - CBCD Performed By: #### L 100.0100, L500.4050 #### [facility] [address] [place], [address] Platelets (Bld) [#/Vol] 232 10*3/uL Normal 150-450 [facility] Comment on above: Order Comment: Order Date: 03/14/24 Order Info: 0184-1 - CBCD Performed By: #### L 100.0100, L500.4050 #### [facility] [address] [place], [address] RBC (Bld) [#/Vol] 4.48 10*6/uL Normal 4.2-5.4 [facility] Comment on above: Order Comment: Order Date: 03/14/24 Order Info: 0184-1 - CBCD Performed By: #### L 100.0100, L500.4050 #### [facility] [address] [place], [address] RDW SD 43.0 fl Normal 35.1-43.9 [facility] Comment on above: Order Comment: Order Date: 03/14/24 Order Info: 0184- - CBCD Performed By: #### L 100.0100, L500.4050 #### [facility] [address] [place], [address] WBC (Bld) [#/Vol] 8.0 10*3/uL Normal 4.4-11.0 [facility] Comment on above: Order Comment: Order Date: 03/14/24 Order Info: 0184- - CBCD Performed By: #### L 100.0100, L500.4050 #### [facility] [address] [place], [address] Comprehensive Metabolic Prof ilon 03-14-2024 Albumin [Mass/Vol] 3.8 g/dL Normal 3.2-5.0 [facility] Comment on above: Order Comment: Order Date: 03/14/24 Order Info: 0786-1 - CMP Performed By: #### L 100.0100, L500.4050 #### [facility] [address] [place], [address] Albumin/Globulin [Mass ratio] 1.1 {ratio} Normal 0.9-2.4 [facility] Comment on above: Order Comment: Order Date: 03/14/24 Order Info: 0786-1 - CMP Performed By: #### L 100.0100, L500.4050 #### [facility] [address] [place], [address] ALK P 96 U/L Normal 45-117 [facility] Comment on above: Order Comment: Order Date: 03/14/24 Order Info: 0786-1 - CMP Performed By: #### L 100.0100, L500.4050 #### [facility] [address] [place], [address] ALT [Catalytic activity/Vol] 26 U/L Normal 13-56 [facility] Comment on above: Order Comment: Order Date: 03/14/24 Order Info: 0786-1 - CMP Performed By: #### L 100.0100, L500.4050 #### [facility] [address] [place], [address] AST [Catalytic activity/Vol] 18 U/L Normal 15-37 [facility] Comment on above: Order Comment: Order Date: 03/14/24 Order Info: 0786-1 - CMP Performed By: #### L 100.0100, L500.4050 #### [facility] [address] [place], [address] Bilirubin [Mass/Vol] 0.30 mg/dL Normal 0.20-1.00 [facility] Comment on above: Order Comment: Order Date: 03/14/24 Order Info: 0786-1 - CMP Result Comment: For patients on eltrombopag therapy, use of Dimension [place] TBIL is not recommended. Performed By: #### L 100.0100, L500.4050 #### [facility] [address] [place], [address] BUN/CRE 21.9 RATIO High 10-20 [facility] Comment on above: Order Comment: Order Date: 03/14/24 Order Info: 0786-1 - CMP Performed By: #### L 100.0100, L500.4050 #### [facility] [address] [place], [address] CA,Total 9.5 mg/dL Normal 8.5-10.1 [facility] Comment on above: Order Comment: Order Date: 03/14/24 Order Info: 0786-1 - CMP Performed By: #### L 100.0100, L500.4050 #### [facility] [address] [place], [address] Chloride [Moles/Vol] 104 mmol/L Normal 98-107 [facility] Comment on above: Order Comment: Order Date: 03/14/24 Order Info: 0786-1 - CMP Performed By: #### L 100.0100, L500.4050 #### [facility] [address] [place], [address] CO2 [Moles/Vol] 28.0 mmol/L Normal 21.0-32.0 [facility] Comment on above: Order Comment: Order Date: 03/14/24 Order Info: 0786-1 - CMP Performed By: #### L 100.0100, L500.4050 #### [facility] [address] [place], [address] Creatinine [Mass/Vol] 0.91 mg/dL Normal 0.55-1.02 [facility] Comment on above: Order Comment: Order Date: 03/14/24 Order Info: 0786-1 - CMP Result Comment: The validity of the calculated GFR GFRAA in patients over 70 years has not been determined. Clinical correlation is essential. Performed By: #### L 100.0100, L500.4050 #### [facility] [address] [place], [address] EST GFR - AA 82 mL/min Normal >60 [facility] Comment on above: Order Comment: Order Date: 03/14/24 Order Info: 0786-1 - CMP Result Comment: Afri can [place] GFR Calc Performed By: #### L 100.0100, L500.4050 #### [facility] [address] [place], [address] GAP 6 Normal 5-15 [facility] Comment on above: Order Comment: Order Date: 03/14/24 Order Info: 0786-1 - CMP Performed By: #### L 100.0100, L500.4050 #### [facility] [address] [place], [address] GFR/1.73 sq M.predicted among non-blacks MDRD (S/P/Bld) [Vol rate/Area] 68 mL/min/{1.73_m2} Normal >60 [facility] Comment on above: Order Comment: Order Date: 03/14/24 Order Info: 0786-1 - CMP Result Comment: Non- GFR Calc Performed By: #### L 100.0100, L500.4050 #### [facility] [address] [place], [address] Globulin (S) [Mass/Vol] 3.5 g/dL Normal 2.2-4.2 [facility] Comment on above: Order Comment: Order Date: 03/14/24 Order Info: 0786-1 - CMP Performed By: #### L 100.0100, L500.4050 #### [facility] [address] [place], [address] Glucose [Mass/Vol] 103 mg/dL Normal 74-106 [facility] Comment on above: Order Comment: Order Date: 03/14/24 Order Info: 0786-1 - CMP Result Comment: Fast ing Glucose result from 100 to 125 mg/dL suggests IMPAIRED HOMEOSTASIS per A.D.A. criteria. Performed By: #### L 100.0100, L500.4050 #### [facility] [address] [place], [address] Potassium [Moles/Vol] 3.4 mmol/L Low 3.5-5.1 [facility] Comment on above: Order Comment: Order Date: 03/14/24 Order Info: 0786-1 - CMP Performed By: #### L 100.0100, L500.4050 #### [facility] [address] [place], [address] Sodium [Moles/Vol] 139 mmol/L Normal 136-145 [facility] Comment on above: Order Comment: Order Date: 03/14/24 Order Info: 0786-1 - CMP Performed By: #### L 100.0100, L500.4050 #### [facility] [address] [place], [address] T PROT 7.3 g/dL Normal 6.4-8.2 [facility] Comment on above: Order Comment: Order Date: 03/14/24 Order Info: 0786-1 - CMP Performed By: #### L 100.0100, L500.4050 #### [facility] [address] [place], [address] Urea nitrogen [Mass/Vol] 20 mg/dL High 7-18 [facility] Comment on above: Order Comment: Order Date: 03/14/24 Order Info: 0786-1 - CMP Performed By: #### L 100.0100, L500.4050 #### [facility] [address] [place], [address] Emergency Department Summary on 02-22-2024 Emergency Department Summary [facility] Medical Records Department [address] [place] [address] Emergency Department Summary 02/22/24 MR#: [id number] Acct: [id number] Name: RADHA BINGHAM Rep #: [id number] : 1965 58 From: Shaquille Montague DO PCP: Dr. Naye S Jolliff, MD Status:DEP ER Location: ED HPI History of Present Illness Chief Complaint: Lower Extremity Injury Narrative Narrative: Chief complaint and HPI: Left lower extremity pain. 58-year-old female presents for evaluation of left lower leg pain after an injury. Patient states that she lost her balance and fell into a agatha okshelf with her left leg. States that she is currently getting treated for Achilles tendinitis. Patient endorses increased pain in her left calf since the injury. She denies increased pain at the Achilles tendon or ankle. Patient is able to ambulate. She denies any numbness or tingling. Denies pain elsewhere. Review of systems: See HPI Medications: As listed on the chart Allergies: As listed on the chart PFSH: Per chart Vital signs: As listed on the chart. Reviewed. Physical exam: Gen: A O x3, NAD Head: Normocephalic, atraumatic Eyes: No sclera icterus, conjunctiva clear ENT: Moist mucous membranes CV: Regular rate and rhythm Resp: Nonlabored respirations Musc: Full ROM of the left lower extremity, no deformity, strength 5 out of 5, mild tenderness to palpation of the Achilles tendon which patient states has been her baseline, negative Wayne test, Achilles intact, mild tenderness to palpation of the posterior mid calf-nonswollen/no erythema/no ecchymosis, ankle/foot/knee nontender to palpation with full range of motion, DP/PT pulses plus 2 out of 4 Skin: Warm, dry Neuro: Alert, oriented, grossly intact, sensation intact Psych: Cooperative, appropriate mood and affect [facility] Medical History HLD (hyperlipidemia) HTN (hypertension) Depression Home Medications ???Medication ???Instructions ???Recorded ???Last Taken ???Type amlodipine 2.5 mg tablet 2.5 mg PO QHS 06/20/15 Unknown History bupropion HCl 100 mg tablet 200 mg PO QHS 06/20/15 Unknown History hydrochlorothiazide 25 mg tablet 25 mg PO DAILY 06/20/15 Unknown History wfkupetumylx-Hy-kemh- minerals 1 ea PO DAILY 06/20/15 Unknown History (Multiple Vitamin, Womens tablet) sertraline 100 mg tablet 200 mg PO QHS 06/20/15 Unknown History cetirizine 10 mg capsule (Zyrtec) 10 mg PO DAILY 05/30/16 Unknown History potassium chloride 10 mEq 10 meq PO DAILY 12/06/22 Unknown History tablet,extended release rosuvastatin 10 mg tablet 10 mg PO DAILY 12/06/22 Unknown History meloxicam 15 mg tablet 15 mg PO DAILY 02/22/24 Unknown History Allergy/AdvReac Type Severity Reaction Status Date / Time oxycodone HCl (From Percocet) AdvReac Nausea Verified 02/22/24 14:29 Surgical History Hx of appendectomy H/O: hysterectomy History of total bilateral 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 See physical exam. Suspect calf contusion however fracture is in the differential. X-ray of the left tib/fib was obtained in triage. X-ray was personally reviewed by ok, ED physician. No fracture or dislocation. Patient has a prosthetic knee. Patient's pain is likely secondary to a calf contusion. She was able to ambulate in the emergency department. Patient stable to discharge home. Tylenol as needed for pain. Patient already takes meloxicam. Follow-up with PCP. She confirmed understand the plan. Impression: 1. Left calf contusion 2. Mechanical fall Radiography Diagnostic Testing: Clinical Impression(s) from Imaging Studies Tibia/Fibula X-Ray 02/22/24 14:50 IMPRESSION: No acute fracture or subluxation. Electronically Signed: Hardeep Quintana MD at 15:23 EST Reading Location ID and State: [facility] / [place] Tel , Service support , Discharge Plan Triage Chief Complaint: Lower Extremity Injury ED Provider: Shaquille Montague Dx/Rx/DC Orders Clinical Impression: Contusion of calf Instructions: ED Soft Tissue Contusion Prescriptions: No Action (more content not included)... Normal [facility] Tibia Fibula 2 Viewson 02-21 Tibia Fibula 2 Views [facility] Imaging Services [address] [place] [address] Tibia Fibula 2 Views MR#: [id number] Acct: [id number] Name: RADHA BINGHAM Rep #: [id number] : 1965 F 58 From: Hardeep Quintana MD PCP: Dr. Naye Baldwin MD Status: PRE ER Study: Tibia Fibula 2 Views Date of Exam: 02/22/24 Exam# [id number] Ordering Dr: Shemar,Ed P. [id number] EXAM: XR LEFT TIBIA AND FIBULA, 2 VIEWS CLINICAL INDICATION: pain/swelling TECHNIQUE: Frontal and lateral views of the left tibia and fibula. COMPARISON: No relevant prior studies available. FINDINGS: BONES/JOINTS: Knee prosthesis in place. No acute fracture or subluxation. SOFT TISSUES: Normal. No soft tissue swelling or gas. No radiopaque foreign body. RAD/Tibia Fibula 2 Views IMPRESSION: No acute fracture or subluxation. Electronically Signed: Hardeep Quintana MD at 15:23 EST , CC: Dr. Naye Baldwin MD; ED PHYSICIAN PROVIDER Blog Writer: Signed Normal [facility] Emergency Department Summary on 01-08-2024 Emergency Department Summary [facility] Medical Records Department [address] [place] [address] Emergency Department Summary 01/08/24 MR#: [id number] Acct: [id number] Name: RADHA BINGHAM Rep #: [id number] : 1965 58 From: José Miguel Yang DO PCP: Dr. Naye Baldwin MD Status:DEP ER Location: ED HPI History of Present Illness Chief Complaint: Neuro S/Sx Informant: patient Narrative Narrative: This is dictation for visit dated 12/09/2023 58-year-old female presenting to the emergency room with a chief complaint of left facial droop. Patient noted symptoms today at approximately 1130 hrs. [facility] Medical History HLD (hyperlipidemia) HTN (hypertension) Depression Home Medications ???Medication ???Instructions ???Recorded ???Last Taken ???Type amlodipine 2.5 mg tablet 2.5 mg PO QHS 06/20/15 Unknown History bupropion HCl 100 mg tablet 200 mg PO QHS 06/20/15 Unknown History hydrochlorothiazide 25 mg tablet 25 mg PO DAILY 06/20/15 Unknown History kvczkragtlzg-Da-xunl- minerals 1 ea PO DAILY 06/20/15 Unknown History (Multiple Vitamin, Womens tablet) sertraline 100 mg tablet 200 mg PO QHS 06/20/15 Unknown History cetirizine 10 mg capsule (Zyrtec) 10 mg PO DAILY 05/30/16 Unknown History fluconazole 150 mg tablet 150 mg PO Q3D 2 doses #2 tabs 02/26/21 Unknown Rx (Diflucan) potassium chloride 10 mEq 10 meq PO DAILY 12/06/22 Unknown History tablet,extended release rosuvastatin 10 mg tablet 10 mg PO DAILY 12/06/22 Unknown History prednisone 20 mg tablet 60 mg (3 x 20 mg) PO DAILY 7 days 12/09/23 Unknown Rx #21 TABLETS valacyclovir 1 gram tablet 1,000 mg PO TID #21 tabs 12/09/23 Unknown Rx Allergy/AdvReac Type Severity Reaction Status Date / Time oxycodone HCl (From Percocet) AdvReac Nausea Verified 12/09/23 13:13 Surgical History Hx of appendectomy H/O: hysterectomy History of total bilateral knee replacement Status post total right knee replacement Social History Smoking Status: Never smoker ROS ROS ED Constitutional Constitutional ED: Denies chills or weight loss Eyes Eyes: Denies change in vision or diplopia ENT ENT ED: Denies ear pain, rhinorrhea or sore throat Cardiovascular Cardiovascular: Denies chest pain, orthopnea, palpitations or racing heartbeat Respiratory/Chest Respiratory/Chest: Denies cough, dyspnea or orthopnea Gastrointestinal Gastrointestinal: Denies abdominal pain, diarrhea, nausea or vomiting Genitourinary Genitourinary ED: Denies dysuria, hematuria or urinary frequency Musculoskeletal Musculoskeletal: Denies arthralgias or myalgias Integumentary Denies abscess or rash Neurologic Neurologic: Reports paresthesias and weakness; Denies headache(s) Psychiatric Psychiatric: Denies anxiety, depression, suicidal ideation or suicidal thoughts Endocrine Endocrinology: Denies polydipsia, polyphagia or polyuria Allergic/Immunologic Allergic/Immunologic ED: Denies mouth swelling, tongue swelling or urticaria EXAM Physical Exam Const Positive well nourished and well developed General Appearance ED: well developed HEENT Reports normocephalic, head/scalp atraumatic and moist mucous membranes Eyes PERRL and EOMs intact bilaterally Neck no lymphadenopathy, supple and no JVD Resp normal respiratory effort and clear to auscultation bilaterally Cardio regular rate, regular rhythm and no murmurs GI normal to inspection, nondistended, normoactive bowel sounds and non-tender Palpation: soft Back/Spine no CVA tenderness and normal ROM Extremity normal to inspection General Extremety ED: Negative for edema General Extremity: Negative for edema Neuro oriented x3 Neuro Narrative: Patient has facial droop and inability to fully close the eye or to wrinkle forehead. 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 She will be started on valacyclovir and prednisone. History Record Review Discussion w/independent historian: Patient Discharge Plan Triage Chief Complaint: Neuro S/Sx ED Provider: José Miguel Yang Dx/Rx/DC Orders Clinical Impression: Webber's palsy Instructions: Webber's Palsy Prescriptions: New valacyclovir 1 gram tablet 1,000 mg PO TID Qty: 21 0RF prednisone 20 mg tablet 60 mg PO DAILY 7 Days Qty: 2 (more content not included)... Normal [facility] Bedside Glucoseon 12-09-2023 FINGERSTICK GLU 116 mg/dL High 74-106 [facility] Comment on above: Result Comment: KT HIRSCH OF PATIENT CARE PER NURSING PROTOCOL Performed By: #### L 501.080 ####[facility] [address] [place], [place], [address] AST(SGOT)on 11-17-2023 AST [Catalytic activity/Vol] 18 U/L Normal 15-37 [facility] Comment on above: Order Comment: Order Date: 11/17/23Order Info: 666-02 - BMPOrder Info: - LIPIDOrder Info: 1919-09 - ASTOrder Info: 1741-07 - ALT Performed By: #### L 500.2500, L501.4100, L501.4405, L500.4100 ####[facility] [address] [place], [place], [address] Alanine Aminotransferas (SGP T)on 11-17-2023 ALT [Catalytic activity/Vol] 24 U/L Normal 13-56 [facility] Comment on above: Order Comment: Order Date: 11/17/23Order Info: 666-02 - BMPOrder Info: - LIPIDOrder Info: 1919-09 - ASTOrder Info: 1741-07 - ALT Performed By: #### L 500.2500, L501.4100, L501.4405, L500.4100 ####[facility] [address] [place], [address] Basic Metabolic Profile (BMP )on 11-17-2023 BUN/CRE 18.8 RATIO Normal 10-20 [facility] Comment on above: Order Comment: Order Date: 11/17/23 Order Info: 666-02 - BMP Order Info: - LIPID Order Info: 1919-09 - AST Order Info: 1741-07 - ALT Performed By: #### L 500.2500, L501.4100, L501.4405, L500.4100 #### [facility] [address] [place], [address] CA,Total 10.0 mg/dL Normal 8.5-10.1 [facility] Comment on above: Order Comment: Order Date: 11/17/23 Order Info: 666-02 - BMP Order Info: - LIPID Order Info: 1919-09 - AST Order Info: 1741-07 - ALT Performed By: #### L 500.2500, L501.4100, L501.4405, L500.4100 #### [facility] [address] [place], [address] Chloride [Moles/Vol] 104 mmol/L Normal 98-107 [facility] Comment on above: Order Comment: Order Date: 11/17/23 Order Info: 666-02 - BMP Order Info: - LIPID Order Info: 1919-09 - AST Order Info: 1741-07 - ALT Performed By: #### L 500.2500, L501.4100, L501.4405, L500.4100 #### [facility] [address] [place], [address] CO2 [Moles/Vol] 28.0 mmol/L Normal 21.0-32.0 [facility] Comment on above: Order Comment: Order Date: 11/17/23 Order Info: 666-02 - BMP Order Info: - LIPID Order Info: 1919-09 - AST Order Info: 1741-07 - ALT Performed By: #### L 500.2500, L501.4100, L501.4405, L500.4100 #### [facility] [address] [place], [address] Creatinine [Mass/Vol] 0.90 mg/dL Normal 0.55-1.02 [facility] Comment on above: Order Comment: Order Date: 11/17/23 Order Info: 666-02 - BMP Order Info: - LIPID Order Info: 1920-8 - AST Order Info: 1741-07 ALT Result Comment: The validity of the calculated GFR GFRAA in patients over 70 years has not been determined. Clinical correlation is essential. Performed By: #### L 500.2500, L501.4100, L501.4405, L500.4100 #### [facility] [address] [place], [address] EST GFR - AA 83 mL/min Normal >60 [facility] Comment on above: Order Comment: Order Date: 11/17/23 Order Info: 666-02 - BMP Order Info: - LIPID Order Info: 1919-09 Order Info: 1741-07 ALT Result Comment: Afri can [place] GFR Calc Performed By: #### L 500.2500, L501.4100, L501.4405, L500.4100 #### [facility] [address] [place], [place], [address] GAP 4 Low 5-15 [facility] Comment on above: Order Comment: Order Date: 11/17/23 Order Info: 666-02 - BMP Order Info: - LIPID Order Info: 1919-09 Order Info: 1741-07 ALT Performed By: #### L 500.2500, L501.4100, L501.4405, L500.4100 #### [facility] [address] [place], [place], [address] GFR/1.73 sq M.predicted among non-blacks MDRD (S/P/Bld) [Vol rate/Area] 68 mL/min/{1.73_m2} Normal >60 [facility] Comment on above: Order Comment: Order Date: 11/17/23 Order Info: 666-02 - BMP Order Info: [id number] - LIPID Order Info: 1919-09 Order Info: 1741-07 ALT Result Comment: Non- GFR Calc Performed By: #### L 500.2500, L501.4100, L501.4405, L500.4100 #### [facility] [address] [place], [address] Glucose [Mass/Vol] 97 mg/dL Normal 74-106 [facility] Comment on above: Order Comment: Order Date: 11/17/23 Order Info: 666-02 - BMP Order Info: - LIPID Order Info: 1919-09 - AST Order Info: 1741-07 - ALT Performed By: #### L 500.2500, L501.4100, L501.4405, L500.4100 #### [facility] [address] [place], [address] Potassium [Moles/Vol] 3.9 mmol/L Normal 3.5-5.1 [facility] Comment on above: Order Comment: Order Date: 11/17/23 Order Info: 666-02 - BMP Order Info: - LIPID Order Info: 1919-09 AST Order Info: 1741-07 - ALT Performed By: #### L 500.2500, L501.4100, L501.4405, L500.4100 #### [facility] [address] [place], [address] Sodium [Moles/Vol] 136 mmol/L Normal 136-145 [facility] Comment on above: Order Comment: Order Date: 11/17/23 Order Info: 666-02 - BMP Order Info: - LIPID Order Info: 1919-09 AST Order Info: 1741-07 - ALT Performed By: #### L 500.2500, L501.4100, L501.4405, L500.4100 #### [facility] [address] [place], [address] Urea nitrogen [Mass/Vol] 17 mg/dL Normal 7-18 [facility] Comment on above: Order Comment: Order Date: 11/17/23 Order Info: 666-02 - BMP Order Info: - LIPID Order Info: 1919-09 AST Order Info: 1741-07 - ALT Performed By: #### L 500.2500, L501.4100, L501.4405, L500.4100 #### [facility] [address] [place], [address] Lipid Profileon 11-17-2023 Cholesterol [Mass/Vol] 161 mg/dL Normal 200 [facility] Comment on above: Order Comment: Order Date: 11/17/23Order Info: 666-02 - BMPOrder Info: - LIPIDOrder Info: 1919-09 - ASTOrder Info: 1741-07 - ALT Result Comment: <200 mg/dL Desirable 200-240 mg/dL Borderline >240 mg/dL High Risk Performed By: #### L 500.2500, L501.4100, L501.4405, L500.4100 ####[facility] [address] [place], [address] Cholesterol in HDL [Mass/Vol] 62 mg/dL Normal [facility] Comment on above: Order Comment: Order Date: 11/17/23Order Info: 666-02 - BMPOrder Info: - LIPIDOrder Info: 1919-09 - ASTOrder Info: 1741-07 - ALT Result Comment: The drugs N-Acetylcysteine and Metamizole may falsely depress this assay. Reference Range HDL <40 mg/dL Low HDL Cholesterol HDL >or= 60 mg/dL High HDL Cholesterol Performed By: #### L 500.2500, L501.4100, L501.4405, L500.4100 ####[facility] [address] [place], [address] Cholesterol in LDL [Mass/Vol] 66 mg/dL Normal 0-130 [facility] Comment on above: Order Comment: Order Date: 11/17/23Order Info: 666-02 - BMPOrder Info: - LIPIDOrder Info: [id number] - ASTOrder Info: [id number] - ALT Performed By: #### L 500.2500, L501.4100, L501.4405, L500.4100 ####[facility] [address] [place], [address] Cholesterol in VLDL [Mass/Vol] 33 mg/dL Normal 5-40 [facility] Comment on above: Order Comment: Order Date: 11/17/23Order Info: 666-02 - BMPOrder Info: [id number] - LIPIDOrder Info: [id number] - ASTOrder Info: [id number] - ALT Performed By: #### L 500.2500, L501.4100, L501.4405, L500.4100 ####[facility] [address] [place], [address] Triglyceride [Mass/Vol] 166 mg/dL Normal [facility] Comment on above: Order Comment: Order Date: 11/17/23Order Info: 666-02 - BMPOrder Info: [id number] - LIPIDOrder Info: [id number] - ASTOrder Info: [id number] - ALT Result Comment: The drugs N-Acetylcysteine and Metamizole may falsely depress this assay. Serum Triglycerides Reference Interval Normal <150 mg/dL Borderline high 150 - 199 mg/dL High 200 - 499 mg/dL Very High > or = 500 mg/dL Performed By: #### L 500.2500, L501.4100, L501.4405, L500.4100 ####[facility] [address] [place], [address] Protein+Creatinine Ratio,Uri neon 11-17-2023 PROT:CRE RATIO 92 mg/g CRE Normal 0-200 [facility] Comment on above: Performed By: #### L 501.0900 ####[facility] [address] [place], [address] Protein (U) [Mass/Vol] 11.0 mg/dL Normal <11.9 [facility] Comment on above: Performed By: #### L 501.0900 ####[facility] [address] [place], [address] UR CREAT 120.00 mg/dL Normal NO RANGE EST. [facility] Comment on above: Performed By: #### L 501.0900 ####[facility] [address] [place], [address] PT D/C Summary (1)on 024 PT D/C Summary (1) [facility] Physical Therapy [facility] [address] [place] [address] / REHABILITATION SERVICES DISCHARGE SUMMARY MR#: [id number] Acct: [id number] Name: RADHA BINGHAM Rep #: [id number] : 1965 58 From: Steven Salcido PT, Cert. MD Causey, OCS Referring Dr.: Dr. Naye Baldwin MD Status: [facility] Insurance: [facility] PACKAGE PLAN Discharge Summary D/C summary: It has been my pleasure to treat RADHA BINGHAM referred by Dr. Naye Baldwin MD, with the diagnosis of BACK PAIN for a total of 6 visit(s). Discharge Date: Please see the following information for a summary of their discharge status. Subjective Subjective: Doing well .. Pain Bilateral Back: Pain Intensity (Out of 10): 0 Overall Improvement % Improvement: 60 Objective Objective/Function: D/C Goals Goal 1:: I with HEP for back Goal Progress: Goal Met Goal 2:: Patient to demonstrate 50% improvement with increase function and less pain. Goal Progress: Goal Met Goal 3:: Patient to improve lumbar ROM for function of recovery to lift or tie shoes Goal Progress: Goal Met Goal 4:: Patient to improve back oswestry score by 5 points to improve QOL and function Goal Progress: Goal Met Goal 5:: Patient posture and body mechanics 80% of the time Goal Progress: Goal Met Plan Plan: PT INTERVENTIONS EDIL EX'S ,PROGRESS TO DLS ,STM - MASSAGE GUN ,POSTURAL EX'S AND MODALTIES FOR PAIN D/C Information d/c sentence: If there are questions or concerns regarding this patient's physical therapy, please feel free to call me at [phone]. Thank you for the referral of this patient. Sincerely, Steven Salcido PT, Cert MDT, OCS Balance/Gait/Function al tests Balance/Special Test Scores Oswestry Low Back Score: 6 Improvement % Improvement: 60 09/25/23 1159 CC: Dr. Naye Baldwin MD JLA Signed Normal [facility] SCRN MAMM (CAD)W/DEBBIE BILATo n 09-04-2023 SCRN MAMM (CAD)W/DEBBIE BILAT [facility] Imaging Services [address] [place], [place] [address] SCRN MAMM (CAD)W/DEBBIE BILAT MR#: [id number] Acct: [id number] Name: RADHA BINGHAM Rep #: [id number] : 1965 F 57 From: Jovany parkinson MD PCP: Dr. Naye Baldwin MD Status: [facility] Study: SCRN MAMM (CAD)W/DEBBIE BILAT Date of Exam: 08/23 04/18 Exam# [id number] Ordering Dr: Naye Baldwin MD [id number] MAMMOGRAPHY - BILATERAL SCREENING REASON FOR EXAM: Female, 57 years old. Routine annual screening examination. PERTINENT HISTORY: Non-contributory. TECHNIQUE: Digital bilateral breast debbie (3D mammographic acquisition) in the CC and MLO projections. 2-D mediolateral oblique (MLO) and craniocaudad (CC) views of both breasts were obtained. CAD: Full Field Digital Mammography with Computer Added Detection was performed. COMPARISON: Comparison is made with prior study August 04, 2022 and August 07, 2021. FINDINGS: Breast Composition: There are scattered areas of fibroglandular density. There are no dominant masses or suspicious calcifications. Stable 7 mm nodule with central calcification in the central portion of the right breast. No other significant abnormalities are identified. There has been no significant change since the prior study. BI/SCRN MAMM (CAD)W/DEBBIE BILAT IMPRESSION: Stable bilateral screening mammogram. Yearly follow-up mammogram recommended. (A) ASSESSMENT CATEGORY: BIRADS Category 2: Benign. A letter regarding these results will be sent to the patient by the facility within 30 days. Approximately 10% of breast cancers are not detected by mammography. A normal mammogram should not delay biopsy of a clinically suspicious abnormality. [id number] Electronically Signed: Jovany Guerrier MD at 9:13 EDT , CC: Dr. Naye Baldwin MD Blog Writer: Signed Normal [facility] PT D/C Summary (1)on 024 PT D/C Summary (1) [facility] Physical Therapy [facility] [address] [place] [address] [address] [place] [address] / REHABILITATION SERVICES DISCHARGE SUMMARY MR#: [id number] Acct: [id number] Name: RADHA BINGHAM Rep #: [id number] : 1965 57 From: Onofre Pulido DPT, OCS, CSCS Referring DrAdolfo: LENY Cortes Status: [facility] Insurance: [facility] PACKAGE PLAN Discharge Summary D/C summary: It has been my pleasure to treat RADHA BINGHAM referred by Dr. Winston Cortes, LENY, with the diagnosis of L achilles tendonopathy for a total of 12 visit(s). Discharge Date: 08/13/23 Please see the following information for a summary of their discharge status. Subjective Subjective: I am doing well. Walking but not with dog yet as she pulls all over the place. Is walking 15 minutes but thinks she could do 20. Noticeable disocmfort at times but no pain. 90% better. To doctor Thursday. Meloxicam is still being taken. Pain L achilles: Pain Intensity (Out of 10): 0 Overall Improvement % Improvement: 90 Objective Objective/Function: Great DF ROM at 8 degrees knee straight and bent, mild tender at chilles insertion. No antalgia in gait today, Heel raises and toe raises without pain. Pt happy with progress and I in management. Will f/u with doctor next week adn continue HEP Goals Goal 1:: Walk without pain in community situations Goal Progress: Goal Met Goal 2:: Patient feel pain and activities are 75% improved Goal Progress: Goal Met Goal 3:: LEFS score 60 Goal Progress: Progressing Goal 4:: I appropriate management of condition. Goal Progress: Goal Met Goal 5:: walk dog without increasing pain Goal Progress: not yet Plan Plan: d/c D/C Information d/c sentence: If there are questions or concerns regarding this patient's physical therapy, please feel free to call me at [phone]. Thank you for the referral of this patient. Sincerely, Onofre Pulido, DPT, OCS, CSCS Balance/Gait/Function al tests Balance/Special Test Scores Lower Extremity Functional Score: 55 Improvement % Improvement: 90 08/13/23 2535 CC: LENY Cortes; Dr. Naye Baldwin MD EBG Signed Normal [facility] Basophil percentageOrdered B y: Dr. Baldwin on 05-05-2022 Chloride [Moles/Vol] 101 mmol/L 98-107 [facility] Glucose [Mass/Vol] 90 mg/dL 74-106 [facility] Potassium [Moles/Vol] 3.3 mmol/L 3.5-5.1 [facility] Sodium [Moles/Vol] 138 mmol/L 136-145 [facility] Laboratory - Chemistry and C hemistry - challengeOrdered By: Dr. Baldwin on 05-05-2022 CO2 [Moles/Vol] 28.0 mmol/L 21.0-32.0 [facility] Urea nitrogen/Creatinine [Mass ratio] 17.1 mg/mg 10- [facility] No Panel InformationOrdered By: Dr. Baldwin on 05-05-2022 Estimated GFR (MDRD) Amer 94 mL/min >60 [facility] Comment on above: GFR Calc Estimated GFR (MDRD) Non-Af Amer 77 mL/min >60 [facility] Comment on above: Non- GFR Calc Serum or plasma calcium bibiana urement (mass/volume)Ordered By: Dr. Baldwin on 05-05-2022 Calcium [Mass/Vol] 9.4 mg/dL 8.5-10.1 [facility] Serum or plasma creatinine m easurement (mass/volume)Ordered By: Dr. Baldwin on 05-05-2022 Creatinine [Mass/Vol] 0.82 mg/dL 0.55-1.02 [facility] Comment on above: The validity of the calculated GFR & GFRAA in patients over 70 years has not been determined. Clinical correlation is essential. Serum or plasma urea nitroge n measurement (mass/volume)Ordered By: Dr. Baldwin on 05-05-2022 Urea nitrogen [Mass/Vol] 14 mg/dL 7-18 [facility] Thin prep Papanicolaou smear with manual screeningOrdered By: Dr. Baldwin on 05-05-2022 Thin prep Papanicolaou smear with manual screening 9 5-15 [facility] Absolute lymphocyte counton 11-01-2021 Lymphocytes Auto (Unsp spec) [#/Vol] 2.47 10*3/uL 0.83-4.51 [facility] Work Phone: Basophil percentageon 2021 Basophils/100 WBC (Bld) 0.6 % 0-1 [facility] Work Phone: Bilirubin [Mass/Vol] 0.30 mg/dL 0.20-1.00 [facility] Work Phone: Comment on above: For patients on eltr ombopag therapy, use of Dimension [place] TBIL is not recommended. Chloride [Moles/Vol] 102 mmol/L 98-107 [facility] Work Phone: Cholesterol [Mass/Vol] 150 mg/dL <200 [facility] Work Phone: Comment on above: <200 mg/dL Desirable 200-240 mg/dL Borderline >240 mg/dL High Risk Eosinophils/100 WBC (Bld) 1.9 % 0-5 [facility] Work Phone: Glucose [Mass/Vol] 90 mg/dL 74-106 [facility] Work Phone: Neutrophils (Bld) [#/Vol] 4.1 10*3/uL 2.0-7.7 [facility] Work Phone: Neutrophils/100 WBC (Bld) 56.4 % 47-70 [facility] Work Phone: Potassium [Moles/Vol] 3.7 mmol/L 3.5-5.1 [facility] Work Phone: Comment on above: Slight Hemolysis, Re sult may be falsely increased. Protein [Mass/Vol] 7.7 g/dL 6.4-8.2 [facility] Work Phone: Sodium [Moles/Vol] 138 mmol/L 136-145 [facility] Work Phone: Triglyceride [Mass/Vol] 235 mg/dL <199 [facility] Work Phone: Comment on above: The drugs N-Acetylcy steine and Metamizole may falsely depress this assay.Serum Triglycerides Reference Interval Normal <150 mg/dL Borderline high 150 - 199 mg/dL High 200 - 499 mg/dL Very High > or = 500 mg/dL WBC (Bld) [#/Vol] 7.2 10*3/uL 4.4-11.0 [facility] Work Phone: Blood erythrocytes count (nu mber/volume)on 11-01-2021 RBC (Bld) [#/Vol] 4.71 10*6/uL 4.2-5.4 [facility] Work Phone: Blood hemoglobin measurement (mass/volume)on 11-01-2021 Hemoglobin (Bld) [Mass/Vol] 14.1 g/dL 12.0-15.0 [facility] Work Phone: Blood lymphocytes/100 leukoc yteson 11-01-2021 Lymphocytes/100 WBC (Bld) 34.2 % 19-41 [facility] Work Phone: Blood monocytes/100 leukocyt eson 11-01-2021 Monocytes/100 WBC (Bld) 6.5 % 0-10 [facility] Work Phone: Blood platelet mean volumeon 11-01-2021 Platelet mean volume (Bld) [Entitic vol] 11.3 fL 6.2-12.0 [facility] Work Phone: Determination of erythrocyte mean corpuscular volume (MCV)on 11-01-2021 MCV (RBC) [Entitic vol] 90.7 fL 81-99 [facility] Work Phone: Erythrocyte sedimentation ra kaitlin 11-01-2021 ESR (Bld) [Velocity] 15 mm/h 0-30 [facility] Work Phone: Hematocrit Auto (Bld) [Volum e fraction]on 11-01-2021 Hematocrit (Bld) [Volume fraction] 42.7 % 37-47 [facility] Work Phone: Laboratory - Chemistry and C hemistry - challengeon 11-01-2021 ALP [Catalytic activity/Vol] 100 U/L 45-117 [facility] Work Phone: ALT [Catalytic activity/Vol] 29 U/L 13-56 [facility] Work Phone: CO2 [Moles/Vol] 27.0 mmol/L 21.0-32.0 [facility] Work Phone: Globulin (S) [Mass/Vol] 3.8 g/dL 2.2-4.2 [facility] Work Phone: Urea nitrogen/Creatinine [Mass ratio] 17.2 mg/mg 10-20 [facility] Work Phone: Laboratory - Hematology and Cell countson 11-01-2021 Erythrocyte distribution width (RBC) [Entitic vol] 42.9 fL 35.1-43.9 [facility] Work Phone: Erythrocyte distribution width (RBC) [Ratio] 13.0 % 11.6-14.6 [facility] Work Phone: Immature granulocytes/100 WBC (Bld) 0.400 % 0.0-0.9 [facility] Work Phone: Comment on above: IG% - Immature Granu locytes (promyelocytes, myelocytes and metamyelocytes) > 1% indicates that a LEFT SHIFT is Present. MCH (RBC) [Entitic mass] 29.9 pg 27.0-32.0 [facility] Work Phone: Nucleated RBC/100 WBC (Bld) [Ratio] 0 % 0-5 [facility] Work Phone: MCHC Auto (RBC) [Mass/Vol]on 11-01-2021 MCHC (RBC) [Mass/Vol] 33.0 g/dL 32-36 [facility] Work Phone: No Panel Informationon 11-01 Estimated GFR (MDRD) Amer 87 mL/min >60 [facility] Work Phone: Comment on above: GFR Calc Estimated GFR (MDRD) Non-Af Amer 72 mL/min >60 [facility] Work Phone: Comment on above: Non- GFR Calc Thyroid Stimulating Hormone (TSH) 1.23 uIU/mL 0.358-3.74 [facility] Work Phone: Platelets bldon 11-01-2021 Platelets (Bld) [#/Vol] 242 10*3/uL 150-450 [facility] Work Phone: Serum or plasma albumin bibiana urement (mass/volume)on 11-01-2021 Albumin [Mass/Vol] 3.9 g/dL 3.2-5.0 [facility] Work Phone: Serum or plasma albumin/glob ulin mass ratioon 11-01-2021 Albumin/Globulin [Mass ratio] 1.0 {ratio} 0.9-2.4 [facility] Work Phone: Serum or plasma calcium bibiana urement (mass/volume)on 11-01-2021 Calcium [Mass/Vol] 9.1 mg/dL 8.5-10.1 [facility] Work Phone: Serum or plasma cholesterol in HDL measurement (mass/volume)on 11-01-2021 Cholesterol in HDL [Mass/Vol] 54 mg/dL >40 [facility] Work Phone: Comment on above: The drugs N-Acetylcy steine and Metamizole may falsely depress this assay. Reference Range HDL <40 mg/dL Low HDL Cholesterol HDL >or= 60 mg/dL High HDL Cholesterol Serum or plasma cholesterol in VLDL measurement (mass/volume)on 11-01-2021 Cholesterol in VLDL [Mass/Vol] 47 mg/dL 5-40 [facility] Work Phone: Serum or plasma creatinine m easurement (mass/volume)on 11-01-2021 Creatinine [Mass/Vol] 0.87 mg/dL 0.55-1.02 [facility] Work Phone: Comment on above: The validity of the calculated GFR & GFRAA in patients over 70 years has not been determined. Clinical correlation is essential. Serum or plasma low density lipoprotein (LDL) cholesterol measurement (mass/volume)on 11-01-2021 Cholesterol in LDL [Mass/Vol] 49 mg/dL 0-130 [facility] Work Phone: Serum or plasma urea nitroge n measurement (mass/volume)on 11-01-2021 Urea nitrogen [Mass/Vol] 15 mg/dL 7-18 [facility] Work Phone: Thin prep Papanicolaou smear with manual screeningon 11-01-2021 Thin prep Papanicolaou smear with manual screening 19 U/L 15-37 [facility] Work Phone: Comment on above: Slight Hemolysis, Re sult may be falsely increased. Thin prep Papanicolaou smear with manual screening 9 5-15 [facility] Work Phone: Basophil percentageon 2021 Chloride [Moles/Vol] 101 mmol/L 98-107 [facility] Work Phone: Glucose [Mass/Vol] 98 mg/dL 74-106 [facility] Work Phone: Potassium [Moles/Vol] 3.4 mmol/L 3.5-5.1 [facility] Work Phone: Sodium [Moles/Vol] 136 mmol/L 136-145 [facility] Work Phone: Laboratory - Chemistry and C hemistry - challengeon 05-01-2021 CO2 [Moles/Vol] 26.0 mmol/L 21.0-32.0 [facility] Work Phone: Urea nitrogen/Creatinine [Mass ratio] 20.4 mg/mg 10-20 [facility] Work Phone: No Panel Informationon 05-01 Estimated GFR (MDRD) Amer 92 mL/min >60 [facility] Work Phone: Comment on above: GFR Calc Estimated GFR (MDRD) Non-Af Amer 76 mL/min >60 [facility] Work Phone: Comment on above: Non- GFR Calc Serum or plasma calcium bibiana urement (mass/volume)on 05-01-2021 Calcium [Mass/Vol] 9.3 mg/dL 8.5-10.1 [facility] Work Phone: Serum or plasma creatinine m easurement (mass/volume)on 05-01-2021 Creatinine [Mass/Vol] 0.83 mg/dL 0.55-1.02 [facility] Work Phone: Comment on above: The validity of the calculated GFR & GFRAA in patients over 70 years has not been determined. Clinical correlation is essential. Serum or plasma urea nitroge n measurement (mass/volume)on 05-01-2021 Urea nitrogen [Mass/Vol] 17 mg/dL 7-18 [facility] Work Phone: Thin prep Papanicolaou smear with manual screeningon 05-01-2021 Thin prep Papanicolaou smear with manual screening 9 5-15 [facility] Work Phone: Vital Signs Date Time Vital Sign Value Performing Clinician Faci lity 12-20-2021 14:19-0400 Diastolic blood pressure 81 mm[Hg] [facility] Work Phone: 12-20-2021 14:19-0400 Heart rate 64 /min [facility] Work Phone: 12-20-2021 14:19-0400 Respiratory rate 14 /min [facility] Work Phone: 12-20-2021 14:19-0400 SaO2% (BldA) [Mass fraction] 100 % [facility] Work Phone: 12-20-2021 14:19-0400 Systolic blood pressure 120 mm[Hg] [facility] Work Phone: 12-20-2021 12:02-0400 Body height 175.26 cm [facility] Work Phone: 12-20-2021 12:02-0400 Body mass index (BMI) [Ratio] 33 kg/m2 [facility] Work Phone: 12-20-2021 12:02-0400 Body temperature 96.7 [degF] [facility] Work Phone: 12-20-2021 12:02-0400 Body weight 101.42 kg [facility] Work Phone: Encounters Encounter Date Encounter Type Care Provider Facility Start: 08-04-2024 End: 08-04-2024 ambulatory Kathryn MISHRA Work Phone: [facility] Work Phone: Start: 08-04-2024 End: 08-04-2024 Discharged Recurring Winston Cortes [facility] -[facility] Work Phone: Start: 07-11-2024 End: 07-11-2024 Patient encounter procedure Kathryn Adrian PROCESS MOLD TECHNICIAN-C -Laboratory [facility] Start: 07-11-2024 End: 07-11-2024 ambulatory Kathryn Campbell NP Facility:[facility] Start: 04-07-2024 Encounter for other preprocedural examination Naye Marin Saurabhiff [facility] Start: 03-24-2024 End: 03-24-2024 ambulatory Winston Cortes Facility:[facility] Start: 03-16-2024 End: 03-16-2024 ambulatory Naye S Jolliff Facility:[facility] Start: 02-22-2024 End: 02-22-2024 Emergency department patient visit Naye S Jolliff Facility:[facility] Start: 12-09-2023 End: 12-09-2023 Emergency department patient visit Naye S Jolliff Facility:[facility] Start: 11-17-2023 End: 11-17-2023 ambulatory Naye S Jolliff Facility:[facility] Start: 09-04-2023 End: 09-04-2023 ambulatory Naye S Lianelliff Facility:[facility] Start: 08-13-2023 End: 08-13-2023 ambulatory Winston Cortes Facility:[facility] Start: 08-04-2022 End: 08-04-2022 ambulatory [facility] Work Phone: Start: 08-04-2022 End: 08-04-2022 Patient encounter procedure [facility]-Outpatient Breast Imaging Start: 05-05-2022 End: 05-05-2022 Patient encounter procedure [facility] Start: 12-20-2021 End: 12-20-2021 Emergency department patient visit [facility]-Emergency Department Start: 11-01-2021 End: 11-01-2021 ambulatory [facility] Work Phone: Start: 11-01-2021 End: 11-01-2021 Patient encounter procedure [facility] Start: 08-07-2021 End: 08-07-2021 Patient encounter procedure [facility]Outpatient Breast Imaging Start: 08-02-2021 End: 08-02-2021 Patient encounter procedure [facility]patient [facility] Start: 05-01-2021 End: 05-01-2021 Patient encounter procedure [facility]-Laboratory, [facility] Procedures Date Procedure Procedure Detail Performing Clinician Start: 08-04-2022 Screening mammography Start: 12-20-2021 CT of face Start: 12-20-2021 CT of head without contrast Start: 08-07-2021 Mammography Start: 08-07-2021 Ultrasonography of breast Start: 08-02-2021 Screening mammography Plan of Treatment Date Care Activity Detail Author Patient Education ED Facial Cont usion ED Head Injury (Adult) [facility] Work Phone: Patient referral [facility] Work Phone: Immunizations Immunization Date Immunization Notes Care Provider Fa reid 12-20-2021 tetanus toxoid, redu raymundo diphtheria toxoid, and acellular pertussis vaccine, adsorbed [facility] 12-17-2015 Influenza virus vaccine [facility] Payers Date Payer Category Payer Self-pay [id number] 2023 Unknown [id number] 2014 Unknown [id number] Private Health Insurance [id number] Unknown [id number] Unknown [id number] 2.16.8 [id number] Unknown [id number] 2.16.8 [id number] Unknown [id number] 2.16.8 [id number] Unknown [id number] 2.16.8 [id number] Unknown [id number] 2.16.8 [id number] Unknown [id number] 2.16.8 [id number] Unknown [id number] 2.16.8 [id number] Unknown [id number] 2.16.8 [id number] Unknown [id number] 2.16.8 [id number] Social History Date Type Detail Facility Start: 02-26-2021 End: 12-20-2021 Tobacco smoking status NHIS Unknown if ever smoked [facility] Start: 1965 Sex Assigned At Female [facility] Start: 03-15-2024 Tobacco smoking stat us OKIS Never smoked tobacco (finding) [facility] Medical Equipment Procedure Code Equipment Code Equipment Origin al Text Equipment Identifier Dates Repair, tendon, Achilles decellularized dermis Other codes (Q4125, [id number], [id number]) per [employer] FDA Start: 03-24-2024 Repair, tendon, Achilles pars achilles [employer] FDA Start: 03-24-2024 Repair, tendon, Achilles Bioabsorbable orthopaedic bone screw ([id number] FDA Start: 03-24-2024 Discharge summary 08-04-2024 Note Date & Type Note Facility 08-04-2024 Discharge summary Note Date/Time August 04, 2024 7:00 pm [facility] Physical [facility] [address] [place] [address] [address] [place] [address] / REHABILITATION SERVICES DISCHARGE SUMMARY MR#: [id number] Acct: [id number] Name: RADHA BINGHAM Rep #: [id number] : 1965 58 From: Onofre Pulido DPT, OCS, CSCS Referring DrAdolfo: LENY Cortes Status: REG RCR Insurance: [facility] [employer] Discharge Summary D/C summary: It has been my pleasure to treat RADHA BINGHAM referred by Dr. Winston Cortes DPM, with the diagnosis of L achilles rupture repair 03/24/24 for a total of 17 visit(s). Discharge Date: 06/12/25 Please see the following information for a summary of their discharge status. Subjective Subjective: Doing weell and no pain. Saw doctor and he is happy , will see againin a week. Walking and steps seem better, still unable to L heel raise. Lots of questions about balance.No falls. Pain L achilles area.: Pain Intensity (Out of 10): 0 L glute: Pain Intensity (Out of 10): 0 Overall Improvement % Improvement: 75 Objective Objective/Function: walking much betteer and getting some push off with L. steps look to be without deviations today up and down with rail. FW weight shift still veers R and weakere on L, unable to SL heel raise on L, B heel raise looks good. Goals Goal 1:: AROM L symmetrical to R at ankle Goal Progress: Goal Met Goal 2:: walk with boot FWB without deviations in community Goal Progress: Goal Met Goal 3:: start to wean out of boot when allowed by doctor Goal Progress: Goal Met Goal 4:: Evntual I reciprocal steps and community walking without deeviations Goal Progress: Goal Met Goal 5:: LEEFS score 45 Goal Progress: Goal Met Goal 6:: return to [employer] workout Goal Progress: Goal Met Plan Plan: d/c Pt to continue working via HEP and gym D/C Information d/c sentence: If there are questions or concerns regarding this patient's physical therapy, please feel free to call me at [phone]. Thank you for the referral of thispatient. Sincerely, Onofre Pulido DPT, ARNALDO, CSCS Balance/Gait/Functional tests Balance/Special Test Scores Lower Extremity Functional Score: 59 Improvement % Improvement: 75 <Electronically signed by Onofre Pulido DPT, ARNALDO, CSCS> 08/04/24 1011 CC: LENY Cortes; Dr. Naye Baldwin MD ~ EBG Signed [facility] Work Phone: Discharge summary 08-04-2024 Note Date & Type Note Facility 08-04-2024 Discharge summary [facility] Evaluation note Note Date & Type Note Facility Evaluation note No assessment information availa ble [facility] Work Phone: Reason for referral (narrative) Note Date & Type Note Facility Reason for referral (narrative) No reason for referral information available [facility] Work Phone: Chief Complaint and Reason for Visit Chief Complaint SCREENING Chief Complaint SCREENING ABNORMAL MAMMOGRAM RIGHT SIDE Chief Complaint fall Chief Complaint SCREENING Chief Complaint Admit Date ACHILLES TENDEN RUPTURE. RX HERE August 042024 10:00am Advance Directives No Advanced Directives Records Found Advance Directive Response Recorded Date/ Time Advance Directives No July 15 11:54am Living Will No June 16, 2016 12:45pm Power of Social Professionals No June 16 12:45pm Advance Directive Response Recorded Date/ Time Advance Directives No July 15 6 11:54am Living Will No December 20 12:11pm Power of Social Professionals No December 20, 2021 12:11pm Advance Directive Response Recorded Date/ Time Advance Directives No July 15 11:54am Summary Purpose Family History No Family History Records Found Additional Source Comments Goals (unrecognized section and content) Goals may be documented in a n alternate sectionGoals may be documented in an alternate sectionGoals may be documented in an alternate sectionGoals may be documented in an alternate sectionGoals may be documented in an alternate section Care Teams (unrecognized sec tion and content) Team Status: Active Member Role Status Dates Dr. Naye Baldwin MD Family Provider Active Dr. Naye Baldwin MD Primary Care Provider Active Team Status: Inactive Member Role Status Dates Dr. Naye Baldwin MD Primary Care Provider, Attendin g Provider Active Team Status: Inactive Member Role Status Dates Dr. Naye Baldwin MD Primary Care Prov ider, Attending Provider, Referring Provider Active Team Status: Active Member Role Status Dates Kathryn Campbell PROCESS MOLD TECHNICIAN, PROCESS MOLD TECHNICIAN-C Primary Care Provider Active Team Status: Inactive Member Role Status Dates Kathryn Campbell NP, PROCESS MOLD TECHNICIAN-C Primary Care Provider Active Start: July 11, 2024 End: July 11, 2024 Kathryn Campbell NP, PROCESS MOLD TECHNICIAN-C Attending Provider Active S tart: July 11, 2024 End: July 11, 2024 Kathryn Campbell NP, PROCESS MOLD TECHNICIAN-C Referring Provider Active S tart: July 11, 2024 End: July 11, 2024 Team Status: Inactive Member Role Status Dates Dr. Naye Baldwin MD Primary Care Provider Active Start: August 04, 2024 End: August 04, 2024 Dr. Winston Cortes , DPM Attending Provider Active Start: August 04, 2024 End: August 04, 2024 INFORMATION SOURCE (unrecogn ized section and content) DATE CREATED AUTHOR 08/10/2024 [facility] FOR RECORDS PERTAINING TO PATIENTS WHO ARE OR HAVE BEEN ENROLLED IN A CHEMICAL DEPENDENCY/SUBSTANCEABUSE PROGRAM, SOME INFORMATION MAY BE OMITTED. This clinical summary was aggregated from multiple sources. Caution should be exercised in using it in the provision of clinical care. This summary normalizes information from multiple sources, and as a consequence, information in this document may materially change the coding, format and clinical context of patient data. In addition, data may be omitted in some cases. CLINICAL DECISIONS SHOULD BE BASED ON THE PRIMARY CLINICAL RECORDS. [employer] provides no warranty or guarantee of the accuracy or completeness of information in this document.
== END | disposition home or self-care (01) ==
LOC: MFPLAB 08:46
PROVIDERS: PCP Nurse Practitioner Family; Visit Provider Nurse Practitioner Family
DX: E78.2 Mixed hyperlipidemia (principal)
CPT/HCPCS: 36415; 80053; 80061; 82043; 82570

== ENCOUNTER → 2024-09-08 | Outpatient (CLI) | payer OTHER, SELFPAY | END | disposition home or self-care (01) | LOC: LABSPEC 14:09 | PROVIDERS: PCP Nurse Practitioner Family; Visit Provider Family Medicine | DX: R39.89 Other symptoms and signs involving the genitourinary system (principal) | CPT/HCPCS: 87086; 87088 ==

== ENCOUNTER → 2024-09-28 | Outpatient (CLI) | payer OTHER, SELFPAY ==
--- NOTE | 2024-09-28 08:12 | BI_ITS ---
EXAM: SCRN MAMM (CAD)W/DEBBIE BILAT DATE: 09/28/2024 CLINICAL HISTORY: F, Age 59 y/o , SCREENING TECHNIQUE: SCRN MAMM (CAD)W/DEBBIE BILAT COMPARISON: Prior exam(s) dated 09/04/2023, 08/04/2022. FINDINGS: TISSUE DENSITY: There are scattered areas of fibroglandular density. Bilateral Breast Mammographic Findings: No significant masses, calcifications or other abnormalities are identified. BI/SCRN MAMM (CAD)W/DEBBIE BILAT IMPRESSION: There is no mammographic evidence of malignancy. OVERALL FINAL ASSESSMENT BI-RADS 1: NEGATIVE. RECOMMENDATION: Routine annual follow-up in 1 Year A letter with findings and recommendations will be mailed to the patient. Reading Location: [id number]
--- NOTE | 2024-09-28 08:14 | BD_ITS ---
PROCEDURE: DEXA BONE DENSITY STUDY 09/28/2024 REASON FOR EXAM: F, age 59 y/o . Postmenopausal. TECHNIQUE: DEXA BONE DENSITY STUDY COMPARISON: Prior study dated August 01, 2020. FINDINGS: BMD and T-SCORES Lumbar spine: 0.934 g/cm2, T-score -0.9 Levels: L1 through L4 Change from prior: Loss of 11.5%. Left femoral neck: 0.705 g/cm2, T-score -1.3 Femoral neck comparison data not recommended for monitoring change. Left total hip: 0.832 g/cm2, T-score -0.9 Change from prior: Loss of 5.1%. Right femoral neck: 0.713 g/cm2, T-score -1.2 Femoral neck comparison data not recommended for monitoring change. Right total hip: 0.836 g/cm2, T-score -0.9 Change from prior: Loss of 2.5%. The World Health Organization has defined the following categories based on bone density: Normal bone density: T-score equal to or greater than -1.0 Osteopenia: T-score between -1.0 and -2.5 Osteoporosis: T-score equal to or less than -2.5 The patient does meet the pharmacological treatment recommendations for prevention of osteoporosis. BD/Dexa Bone Density Study IMPRESSION: OSTEOPENIA. Recommend follow-up as clinically warranted. Reading Location: [id number]
--- OUTSIDE RECORDS SUMMARY | 2024-09-28 08:32 | XMS RPT_ITS | CCD ---
Author Organization [facility] Care Team Providers Care Purchasing Associate Name Role Phone Adrian LIVESTOCK FARMER-C, Kathryn Primary Care Provider Adrian LIVESTOCK FARMER-C, Kathryn Attending Provider Adrian LIVESTOCK FARMER-C, Kathryn Referring Provider [phone] Nicolasa NIXON, Dr. Naye Funes Primary Care Provider Sebastian MICHELE, Dr. Montero Attending Provider Alicia NIXON, Dr. Hernández Attending Provider [phone] Jolliff, Naye S Attending Unavailable Jolliff, Naye S Primary Care Unavailable Jolliff, Naye S Referring Unavailable Jolliff, Naye S Primary Care Unavailable Nicolasa, Naye S Attending Unavailable Nicolasa, Naye S Primary Care Unavailable Winston Cortes Attending Unavailable Jolliff, Naye S Primary Care Unavailable Jolliff, Naye S Consulting Unavailable Winston Cortes Attending Unavailable Winston Cortes Referring Unavailable Shaquille Montague Attending Unavailabl e Jolliff, Naye S Primary Care Unavailable Jolliff, Naye S Primary Care Unavailable José Miguel Yang Attending Unavailable Adrian LIVESTOCK FARMER, Kathryn Primary Care Unavailable Adrian LIVESTOCK FARMER, Kathryn Attending Unavailable Adrian LIVESTOCK FARMER, Kathryn Referring Unavailable Adrian LIVESTOCK FARMER, Kathryn Primary Care Unavailable Adrian LIVESTOCK FARMER, Kathryn Attending Unavailable Adrian LIVESTOCK FARMER, Kathryn Primary Care Unavailable Edgar Vargas Attending Unavailable Adrian LIVESTOCK FARMER, Kathryn Attending Unavailable Adrian LIVESTOCK FARMER, Kathryn Referring Unavailable Adrian LIVESTOCK FARMER, Kathryn Primary Care Unavailable Allergies Allergy Classification Reported Allergen(s) Allergy Type Date of Onset Reaction(s) Facility (5 sources) oxyCODONE; Translations: [oxycodone HCl] Drug Allergy 06-16-2016 [facility] Medications Current Medications Medication Drug Class(es) Dates Sig (Normalized) Sig (Original) acetaminophen 325 mg / HYDROcodone bitartrate 5 mg oral tablet (10 sources) Opioid Agonist Start: 03-24-2024 take 1 tablet by mouth every eight hours as needed for pain Hydrocodone-Acetamin ophen 5-325 mg tablet Active 1 {tbl} PO Q8H as needed for pain 35 7 0 March 24, 2024 Other acute postprocedural pain Other acute postprocedural pain Start: 06-10-2016 End: 12-06-2022 Hydrocodone-Acetaminophen 1 TABLET tablet Discontinued 1 - 2 {tbl} PO EVERY 6 HOURS NEEDED as needed for Mild-Mod Pain (1-5/10) 60 0 June 10, 2016 12:00am December 06, 2022 10:00am Start: 06-10-2016 take 1 tablet by gerda th every six hours as needed Hydrocodone-Acetaminophen Active 1 - 2 TABLET PO EVERY 6 HOURS NEEDED 60 June 10, 2016 12:00am acetaminophen 325 mg / oxyCODONE hydrochloride 5 mg oral tablet (3 sources) Opioid Agonist Start: 03-24-2024 take 1 tablet by mouth every eight hours as needed for pain Oxycodone-Acetaminophen 5-325 mg tablet Active 1 {tbl} PO Q8H as needed for pain 35 7 0 March 24, 2024 Other acute postprocedural pain Other acute postprocedural pain amLODIPine 2.5 mg oral tablet (7 sources) Dihydropyridine Calcium Channel Bennie Start: 06-20-2015 take 1 tablet by mouth at bedtime Amlodipine 2.5 MG tablet Active 2.5 mg PO AT BEDTIME June 20, 2015 12:00am aspirin 325 mg oral tablet (3 sources) Platelet Aggregation Inhibitor, Nonsteroidal Anti-inflammatory Drug Start: 03-24-2024 take 1 tablet by mouth once daily Aspirin 325 mg tablet Active 325 mg PO DAILY 20 20 0 March 24, 2024 1:00am buPROPion hydrochloride 100 mg oral tablet (7 sources) Aminoketone Start: 06-20-2015 take 2 tablets by mouth at bedtime Bupropion Hcl 100 MG tablet Active 200 mg PO AT BEDTIME June 20, 2015 12:00am Start: 06-20-2015 take 200 mg by mouth at bedtim e Bupropion Hcl Active 200 MG PO AT BEDTIME June 20, 2015 12:00am cetirizine hydrochloride 10 mg oral capsule (7 sources) Histamine-1 Receptor Antagonist Start: 05-30-2016 take 1 capsule by mouth once daily Cetirizine (Zyrtec) 10 MG capsule Active 10 mg PO DAILY May 30, 2016 12:00am doxycycline hyclate 100 mg oral tablet (3 sources) Tetracycline-cla ss Drug Start: 03-24-2024 take 1 tablet by mouth once daily Doxycycline Hyclate 100 mg tablet Active 100 mg PO DAILY 10 March 24, 2024 1:00am hydroCHLOROthiazide 25 mg oral tablet (7 sources) Thiazide Diuretic Start: 06-20-2015 take 1 tablet by mouth once daily Hydrochlorothiazide 25 MG tablet Active 25 mg PO DAILY June 20, 2015 12:00am meloxicam 15 mg oral tablet (3 sources) Nonsteroidal Anti-inflammator y Drug Start: 02-22-2024 take 1 tablet by mouth once daily Meloxicam 15 mg tablet Active 15 mg PO DAILY February 22, 2024 1:00am Hxqzizrurmku-Dp-Zfzh-Mi nerals (Multiple Vitamin, Womens) 1 EACH tablet (7 sources) Start: 06-20-2015 take 1 tablet by mouth once daily Msaoqckmqlpv-Rr-Phbn-M inerals (Multiple Vitamin, Womens) 1 EACH tablet Active 1 EACH PO DAILY June 20, 2015 2:32pm Start: 06-20-2015 take 1 tablet by gerda th once daily Oysocpfgwtrt-Bt-Hrsd-Minerals (Multiple Vitamin, Womens) 1 EACH tablet Active 1 NMA PO DAILY June 20, 2015 12:00am Start: 06-20-2015 take 1 tablet by gerda th once daily Wudojrxbqmfs-Sr-Zpck-Minerals (Multiple Vitamin, Womens) 1 EACH tablet Active 1 EACH PO DAILY June 20, 2015 12:00am ondansetron 4 mg disintegrating oral tablet (10 sources) Serotonin-3 Receptor Antagonist Start: 03-24-2024 take 1 tablet by mouth every eight hours as needed for nausea Ondansetron 4 mg tablet,disintegrating Active 4 mg PO Q8H 35 0 March 24, 2024 1:00am may take with oral pain medication as needed for nausea Start: 06-11-2016 End: 12-06-2022 take 4-8 mg by mouth every six hours as needed for nausea Ondansetron Hcl (Zofran) 4 MG tablet Discontinued 4 - 8 mg PO EVERY 6 HOURS NEEDED as needed for Nausea 30 0 June 11, 2016 7:37am December 06, 2022 10:01am potassium chloride 10 meq extended release oral tablet (3 sources) Start: 12-06-2022 take 2 tablets by mouth once daily Potassium Chloride 10 mEq tablet extended release Active 20 meq PO DAILY December 06, 2022 12:00am rivaroxaban 10 mg oral tablet (2 sources) Factor Xa Inhibitor Start: 06-10-2016 take 1 tablet by mouth once daily Rivaroxaban (Xarelto) 10 MG tablet Active 10 MG PO DAILY@0600 June 10, 2016 6:54am rosuvastatin calcium 10 mg oral tablet (3 sources) HMG-CoA Reductase Inhibitor Start: 12-06-2022 take 1 tablet by mouth at bedtime Rosuvastatin 10 mg tablet Active 10 mg PO AT BEDTIME December 06, 2022 12:00am sertraline 100 mg oral tablet (7 sources) Serotonin Reuptake Inhibitor Start: 06-20-2015 take [...] mg / clavulanate 125 mg oral tablet (14 sources) Penicillin-class Antibacterial Start: 02-26-2021 End: 03-08-2021 Amoxicillin-Pot Clavulanate (Augmentin) 875-125 mg tablet Discontinued 1 {tbl} PO Q12H 20 10 0 February 26, 2021 1:00am March 07, 2021 1:00am March 08, 2021 1:01am Acute sinusitis, unspecified Start: 06-16-2016 End: 12-06-2022 Amoxicillin-Pot Clavulanate 1 EACH tablet Discontinued 1 {tbl} PO TWICE A DAY June 16, 2016 12:00am December 06, 2022 9:59am Start: 06-16-2016 take 1 tablet by gerda twice daily Amoxicillin-Pot Clavulanate Active 1 TABLET PO TWICE A DAY June 16, 2016 12:00am diclofenac sodium 50 mg delayed release oral tablet (7 sources) Nonsteroidal Anti-inflammatory Drug Start: 06-20-2015 End: 07-17-2015 take 1 tablet by mouth twice daily at mealtime Diclofenac Sodium 50 MG tablet Discontinued 50 mg PO TWICE DAILY WITH MEALS June 20, 2015 12:00am July 17, 2015 11:07am estrogens, esterified (long term) 0.625 mg / methylTESTOSTERone 1.25 mg oral tablet (7 sources) Androgen Start: 06-20-2015 End: 12-06-2022 Estrogens-Methyl testosterone 1 EACH tablet Discontinued 1 {tbl} PO DAILY June 20, 2015 12:00am December 06, 2022 9:59am Start: 06-20-2015 take 1 tablet by gerda th once daily Estrogens-Methyltestosterone Active 1 TA BLET PO DAILY June 20, 2015 12:00am fluconazole 150 mg oral tablet (14 sources) Azole Antifungal Start: 02-26-2021 End: 02-22-2024 Fluconazole (Diflucan) 150 mg tablet Discontinued 150 mg PO Every 3 Days 2 0 February 26, 2021 1:00am February 22, 2024 7:02pm june repeat second dose 72 hrs after first dose if symptoms persist Start: 06-16-2016 End: 12-06-2022 take 1 tablet by mouth once daily Fluconazole 100 MG tablet Discontinued 100 mg PO DAILY June 16, 2016 12:00am December 06, 2022 10:00am abuse-deterrent 12 hr oxyCODONE hydrochloride 10 mg extended release oral tablet (7 sources) Opioid Agonist Start: 06-10-2016 End: 12-06-2022 take 1 tablet by mouth twice daily Oxycodone (Oxycontin) 10 MG tablet Discontinued 10 mg PO TWICE A DAY 30 0 June 10, 2016 12:00am December 06, 2022 9:59am predniSONE 20 mg oral tablet (3 sources) Start: 12-09-2023 End: 02-22-2024 take 3 tablets by mouth once daily Prednisone 20 mg tablet Discontinued 60 mg PO DAILY 21 7 0 December 09, 2023 12:00am February 22, 2024 7:02pm valACYclovir 1000 mg oral tablet (3 sources) Herpesvirus Nucleoside Analog DNA Polymerase Inhibitor, Herpes [...] source) Mixed hyperlipidemia; Translations: [Mixed hyperlipidemia] Onset: 08-19-2024 Chronic E Codes: Fall (5 sources) Fall; Translations: [Unspecified fall, initial encounter] 12-28-2021 Episodic Essential hypertension (7 sources) Hypertensive disorder; Translations: [Essential (primary) hypertension] 07-16-2015 Chronic Genitourinary symptoms and ill-defined conditions (1 source) Other symptoms and signs involving the genitourinary system; Translations: [Other symptoms and signs involving the genitourinary system] Onset: 09-13-2024 Episodic Mood disorders (7 sources) Depressive disorder; Translations: [Depression] 12-20-2021 Chronic Comment on above: ON MED Open wounds of head; neck; and trunk (5 sources) Laceration of oral cavity; Translations: [Laceration without foreign body of oral cavity, initial encounter] 12-28-2021 Episodic Other connective tissue disease (7 sources) History of total knee arthroplasty; Translations: [Presence of right artificial knee joint] 12-20-2021 Chronic Other connective tissue disease (3 sources) Achilles degeneration; Translations: [Other specified disorders of synovium and tendon, other site] 03-24-2024 Episodic Other connective tissue disease (3 sources) Left achilles tendonitis; Translations: [Achilles tendinitis, left leg] 03-24-2024 Episodic Other connective tissue disease (3 sources) Foot pain; Translations: [Pain in left foot] 03-24-2024 Episodic Other injuries and conditions due to external causes (5 sources) Closed injury of head; Translations: [Unspecified injury of head, initial encounter] 12-28-2021 Episodic Other nervous system disorders (3 sources) Acute postoperative pain; Translations: [Other acute postprocedural pain] 03-24-2024 Episodic Other nervous system disorders (3 sources) Webber's palsy; 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 Other screening for suspected conditions (not mental disorders or infectious disease) (3 sources) Encounter for screening for osteoporosis; Translations: [Encounter for other screening for malignant neoplasm of breast] Onset: 07-14-2024 Episodic Other upper respiratory infections (10 sources) Acute sinusitis; Translations: [Acute sinusitis, unspecified] 02-26-2021 Episodic Residual codes; unclassified (3 sources) Edema of left lower leg; Translations: [Localized edema] 03-24-2024 Episodic Past or Other Problems Problem Classification Problem Date Documented Da te Episodic/Chronic Other connective tissue disease (1 source) Facial weakness; Translations: [Facial weakness] Onset: 01-15-2024 Episodic Sprains and strains (11 sources) Strain of calf muscle; Translations: [Strain of other muscle(s) and tendon(s) at lower leg level, unspecified leg, initial encounter] Onset: 04-13-2024 05-11-2014 Episodic Superficial injury; contusion (19 sources) Contusion of lower limb; Translations: [Contusion of unspecified lower leg, initial encounter] Onset: 03-17-2024 12-28-2021 Episodic Results Test Name Value Interpretation Reference Range Facility Urine Cultureon 09-10-2024 [facility] Below infection level. Alpha Hemolytic Streptococcus [place] Count <1000 Normal [facility] Comment on above: Performed By: #### M 100.2200 ####[facility] [address] [place], [place], [address] Urine cultureOrdered By: Lindsey Vargas on 09-08-2024 Bacteria identified Cx Nom (U) Alpha Hemolytic Streptococcus Abnormal [facility] Anion gap in Serum or Plasma Ordered By: Kathryn Campbell on 08-15-2024 Anion gap [Moles/Vol] 12 mmol/L - [facility] BUN/creatinine ratioOrdered By: Kathryn Campbell on 08-15-2024 Urea nitrogen/Creatinine [Mass ratio] 13.8 mg/mg - [facility] Bilirubin, totalOrdered By: Kathryn Campbell on 08-15-2024 Bilirubin [Mass/Vol] 0.40 mg/dL 0.00-1.30 [facility] Calculated very low density lipoprotein (VLDL) cholesterol measurementOrdered By: Kathryn Campbell on 08-15-2024 Calculated very low density lipoprotein (VLDL) cholesterol measurement 27 mg/dL 5-40 [facility] Carbon dioxide, total [Moles /volume] in Central venous bloodOrdered By: Kathryn Campbell on 08-15-2024 CO2 [Moles/Vol] 25.5 mmol/L 21.0-32.0 [facility] Chloride assayOrdered By: Alli Campbell on 08-15-2024 Chloride [Moles/Vol] 102 mmol/L 98-108 [facility] Comprehensive Metabolic Prof ilon 08-15-2024 Albumin [Mass/Vol] 4.5 g/dL Normal 3.5-5.0 [facility] Comment on above: Order Comment: Order Date: 08/15/24Order Info: [id number] - CMPOrder Info: [id number] - LIPID Performed By: #### L 500.4100, L500.4050 ####[facility] [address] [place], [address] Albumin/Globulin [Mass ratio] 1.6 {ratio} Normal 0.9-2.4 [facility] Comment on above: Order Comment: Order Date: 08/15/24Order Info: [id number] - CMPOrder Info: [id number] - LIPID Performed By: #### L 500.4100, L500.4050 ####[facility] [address] [place], [address] ALK PHOS 119 U/L High 35-104 [facility] Comment on above: Order Comment: Order Date: 08/15/24Order Info: [id number] - CMPOrder Info: [id number] - LIPID Performed By: #### L 500.4100, L500.4050 ####[facility] [address] [place], [address] ALT [Catalytic activity/Vol] 19 U/L Normal <=34 [facility] Comment on above: Order Comment: Order Date: 08/15/24Order Info: [id number] - CMPOrder Info: [id number] - LIPID Performed By: #### L 500.4100, L500.4050 ####[facility] [address] [place], [address] AST [Catalytic activity/Vol] 21 U/L Normal <=31 [facility] Comment on above: Order Comment: Order Date: 08/15/24Order Info: [id number] - CMPOrder Info: [id number] - LIPID Performed By: #### L 500.4100, L500.4050 ####[facility] [address] [place], [address] Bilirubin [Mass/Vol] 0.40 mg/dL Normal 0.00-1.30 [facility] Comment on above: Order Comment: Order Date: 08/15/24Order Info: [id number] - CMPOrder Info: [id number] - LIPID Performed By: #### L 500.4100, L500.4050 ####[facility] [address] [place], [address] BUN/CRE 13.8 RATIO Normal 10-20 [facility] Comment on above: Order Comment: Order Date: 08/15/24Order Info: [id number] - CMPOrder Info: [id number] - LIPID Performed By: #### L 500.4100, L500.4050 ####[facility] [address] [place], [address] Calcium [Mass/Vol] 9.8 mg/dL Normal 7.6-11.0 [facility] Comment on above: Order Comment: Order Date: 08/15/24Order Info: [id number] - CMPOrder Info: [id number] - LIPID Performed By: #### L 500.4100, L500.4050 ####[facility] [address] [place], [address] Chloride [Moles/Vol] 102 mmol/L Normal 98-108 [facility] Comment on above: Order Comment: Order Date: 08/15/24Order Info: [id number] - CMPOrder Info: [id number] - LIPID Performed By: #### L 500.4100, L500.4050 ####[facility] [address] [place], [address] CO2 [Moles/Vol] 25.5 mmol/L Normal 21.0-32.0 [facility] Comment on above: Order Comment: Order Date: 08/15/24Order Info: [id number] - CMPOrder Info: [id number] - LIPID Performed By: #### L 500.4100, L500.4050 ####[facility] [address] [place], [address] Creatinine [Mass/Vol] 0.91 mg/dL Normal 0.70-1.20 [facility] Comment on above: Order Comment: Order Date: 08/15/24Order Info: [id number] - CMPOrder Info: [id number] - LIPID Performed By: #### L 500.4100, L500.4050 ####[facility] [address] [place], [address] GAP 12 Normal 5-15 [facility] Comment on above: Order Comment: Order Date: 08/15/24Order Info: 07- - CMPOrder Info: [id number] - LIPID Performed By: #### L 500.4100, L500.4050 ####[facility] [address] [place], [address] GFR/1.73 sq M.predicted among non-blacks MDRD (S/P/Bld) [Vol rate/Area] 74 mL/min/{1.73_m2} Normal >60 [facility] Comment on above: Order Comment: Order Date: 08/15/24Order Info: [id number] - CMPOrder Info: [id number] - LIPID Result Comment: mL/m in/1.73m2 CKD-EPI Creatinine Equation (2020) Performed By: #### L 500.4100, L500.4050 ####[facility] [address] [place], [address] Globulin (S) [Mass/Vol] 2.8 g/dL Normal 2.2-4.2 [facility] Comment on above: Order Comment: Order Date: 08/15/24Order Info: [id number] - CMPOrder Info: [id number] - LIPID Performed By: #### L 500.4100, L500.4050 ####[facility] [address] [place], [address] Glucose [Mass/Vol] 96 mg/dL Normal 70-99 [facility] Comment on above: Order Comment: Order Date: 08/15/24Order Info: [id number] - CMPOrder Info: [id number] - LIPID Performed By: #### L 500.4100, L500.4050 ####[facility] [address] [place], [address] Potassium [Moles/Vol] 4.4 mmol/L Normal 3.3-5.1 [facility] Comment on above: Order Comment: Order Date: 08/15/24Order Info: [id number] - CMPOrder Info: [id number] - LIPID Performed By: #### L 500.4100, L500.4050 ####[facility] [address] [place], [address] Sodium [Moles/Vol] 139 mmol/L Normal 133-145 [facility] Comment on above: Order Comment: Order Date: 08/15/24Order Info: [id number] - CMPOrder Info: [id number] - LIPID Performed By: #### L 500.4100, L500.4050 ####[facility] [address] [place], [address] T PROT 7.3 g/dL Normal 5.9-8.4 [facility] Comment on above: Order Comment: Order Date: 08/15/24Order Info: [id number] - CMPOrder Info: [id number] - LIPID Performed By: #### L 500.4100, L500.4050 ####[facility] [address] [place], [address] Urea nitrogen [Mass/Vol] 13 mg/dL Normal 4-19 [facility] Comment on above: Order Comment: Order Date: 08/15/24Order Info: [id number] - CMPOrder Info: [id number] - LIPID Performed By: #### L 500.4100, L500.4050 ####[facility] [address] [place], [place], [address] Glomerular filtration rate ( GFR) estimation/1.73 sq m using serum, plasma, or whole bOrdered By: Kathryn Campbell on 08-15-2024 GFR/1.73 sq M.predicted among non-blacks MDRD (S/P/Bld) [Vol rate/Area] 74 mL/min/{1.73_m2} >60 [facility] Comment on above: mL/min/1.73m2 CKD-EP I Creatinine Equation (2020) LDL calc ser/plasOrdered By: Kathryn Campbell on 08-15-2024 Cholesterol in LDL [Mass/Vol] 77 mg/dL [facility] Comment on above: Zutdfowsch=711-066 m g/dL & Higher Cvxf=110 mg/dL or greater Laboratory - Chemistry and C hemistry - challengeOrdered By: Kathryn Campbell on 08-15-2024 AST [Catalytic activity/Vol] 21 U/L <32 [facility] Lipid Profileon 08-15-2024 CHOL:HDL 2.51 Normal [facility] Comment on above: Order Comment: Order Date: 08/15/24Order Info: [id number] - CMPOrder Info: [id number] - LIPID Performed By: #### L 500.4100, L500.4050 ####[facility] [address] [place], [place], [address] Cholesterol [Mass/Vol] 173 mg/dL Normal <=200 [facility] Comment on above: Order Comment: Order Date: 08/15/24Order Info: [id number] - CMPOrder Info: [id number] - LIPID Result Comment: Chol esterol level, Desirable <200 mg/dL Borderline high cholesterol 200-239 mg/dL High cholesterol >=240 mg/dL Recommendations of the NCEP Adult Treatment Panel for the following risk-cutoff thresholds for the [place] population. Performed By: #### L 500.4100, L500.4050 ####[facility] [address] [place], [address] Cholesterol in HDL [Mass/Vol] 69 mg/dL Normal [facility] Comment on above: Order Comment: Order Date: 08/15/24Order Info: [id number] - CMPOrder Info: [id number] - LIPID Result Comment: [place] onal Cholesterol Education Program (NCEP) guidelines: <40 mg/dL: Low HDL-cholesterol (major risk factor for CHD) >= 60 mg/dL: High HDL-cholesterol (negative risk factor for CHD) HDL-cholesterol is affected by a number of factors, e.g. smoking, exercise, hormones, sex and age. Performed By: #### L 500.4100, L500.4050 ####[facility] [address] [place], [address] Cholesterol in LDL [Mass/Vol] 77 mg/dL Normal [facility] Comment on above: Order Comment: Order Date: 08/15/24Order Info: [id number] - CMPOrder Info: [id number] - LIPID Result Comment: Bord nepxux=369-346 mg/dL Higher Ldmb=286 mg/dL or greater Performed By: #### L 500.4100, L500.4050 ####[facility] [address] [place], [address] Cholesterol in VLDL [Mass/Vol] 27 mg/dL Normal 5-40 [facility] Comment on above: Order Comment: Order Date: 08/15/24Order Info: [id number] - CMPOrder Info: [id number] - LIPID Performed By: #### L 500.4100, L500.4050 ####[facility] [address] [place], [address] Triglyceride [Mass/Vol] 136 mg/dL Normal [facility] Comment on above: Order Comment: Order Date: 08/15/24Order Info: [id number] - CMPOrder Info: [id number] - LIPID Result Comment: The drugs N-Acetylcysteine and Metamizole may falsely depress this assay. Normal range: <150 mg/dL Borderline High: 150-199 mg/dL High: 200-499 mg/dL Very High: >500 mg/dL Performed By: #### L 500.4100, L500.4050 ####[facility] [address] [place], [address] Microalb:Creat Ratio,Random URon 08-15-2024 Creatinine [Mass/Vol] 90.80 mg/dL Normal 28.00-217.00 [facility] Comment on above: Order Comment: [facility] ORDER-MIACREOrder Date: 08/15/24Order Info: [id number] - MIALB Performed By: #### L 502.0250 ####[facility] [address] [place], [address] MALB:CREAT UNABLE TO CALCULATE Normal [facility] Comment on above: Order Comment: PER I [facility] ORDER-MIACREOrder Date: 08/15/24Order Info: [id number] - MIALB Performed By: #### L 502.0250 ####[facility] [address] [place], [address] MICROALBUMIN,UR < 12.0 Normal NO RANGE EST. [facility] Comment on above: Order Comment: [facility] ORDER-MIACREOrder Date: 08/15/24Order Info: [id number] - MIALB Performed By: #### L 502.0250 ####[facility] [address] [place], [address] Microalbumin/creat ratio urO rdered By: Kathryn Campbell on 08-15-2024 Urine microalbumin/creatinine ratio measurement UNABLE TO CALCULATE mg/g CRE [facility] Potassium measurement (mass/ volume)Ordered By: Kathryn Campbell on 08-15-2024 Potassium (Unsp spec) [Mass/Vol] 4.4 mmol/L 3.3-5.1 [facility] Random urine creatinine bibiana urement (mass/volume)Ordered By: Kathryn Campbell on 08-15-2024 Creatinine Unsp time (U) [Mass/Vol] 90.80 mg/dL 28.00-217.00 [facility] Screening total cholesterol/ high density lipoprotein (HDL) cholesterol ratioOrdered By: Kathryn Campbell on 08-15-2024 Cholesterol.total/Roxi sterol in HDL [Mass ratio] 2.51 {ratio} [facility] Serum creatinine measurement (mass/volume)Ordered By: Kathryn Campbell on 08-15-2024 Creatinine [Mass/Vol] 0.91 mg/dL 0.70-1.20 [facility] Serum globulin measurementOr dered By: Kathryn Campbell on 08-15-2024 Globulin (S) [Mass/Vol] 2.8 g/dL 2.2-4.2 [facility] Serum glucose measurement (m ass/volume)Ordered By: Kathryn Campbell on 08-15-2024 Glucose [Mass/Vol] 96 mg/dL 70-99 [facility] [facility] Serum or plasma alanine barriga otransferase (ALT) measurementOrdered By: Kathryn Campbell on 08-15-2024 ALT [Catalytic activity/Vol] 19 U/L <35 [facility] Serum or plasma albumin bibiana urement (mass/volume)Ordered By: Kathryn Campbell on 08-15-2024 Albumin [Mass/Vol] 4.5 g/dL 3.5-5.0 [facility] Serum or plasma albumin/glob ulin mass ratioOrdered By: Kathryn Campbell on 08-15-2024 Albumin/Globulin [Mass ratio] 1.6 {ratio} 0.9-2.4 [facility] Serum or plasma alkaline shaina sphatase measurementOrdered By: Kathryn Campbell on 08-15-2024 ALP [Catalytic activity/Vol] 119 U/L High 35-104 [facility] Serum or plasma calcium bibiana urement (mass/volume)Ordered By: Kathryn Campbell on 08-15-2024 Calcium [Mass/Vol] 9.8 mg/dL 7.6-11.0 [facility] Serum or plasma cholesterol in HDL measurement (mass/volume)Ordered By: Kathryn Campbell on 08-15-2024 Cholesterol in HDL [Mass/Vol] 69 mg/dL >40 [facility] Comment on above: National Cholesterol Education Program (NCEP) guidelines:<40 mg/dL: Low HDL-cholesterol (major risk factor for CHD)>= 60 mg/dL: High HDL-cholesterol (negative risk factor for CHD)HDL-cholesterol is affected by a number of factors, e.g. smoking, exercise, hormones, sex and age. Serum or plasma cholesterol measurement (mass/volume)Ordered By: Kathryn Campbell on 08-15-2024 Cholesterol [Mass/Vol] 173 mg/dL <201 [facility] Comment on above: Cholesterol level, D esirable <200 mg/dLBorderline high cholesterol 200-239 mg/dLHigh cholesterol >=240 mg/dLRecommendations of the NCEP Adult Treatment Panel for the following risk-cutoff thresholds for the [place] population. Serum or plasma urea nitroge n measurement (mass/volume)Ordered By: Kathryn Campbell on 08-15-2024 Urea nitrogen [Mass/Vol] 13 mg/dL 4-19 [facility] Sodium levelOrdered By: Kathryn Campbell on 08-15-2024 Sodium [Moles/Vol] 139 mmol/L 133-145 [facility] Total proteinOrdered By: Julia Campbell on 08-15-2024 Protein [Mass/Vol] 7.3 g/dL 5.9-8.4 [facility] Triglycerides measurementOrd ered By: Kathryn Campbell on 08-15-2024 Triglyceride [Mass/Vol] 136 mg/dL <199 [facility] Comment on above: The drugs N-Acetylcy steine and Metamizole may falsely depress this assay. Normal range: <150 mg/dLBorderline High: 150-199 mg/dLHigh: 200-499 mg/dLVery High: >500 mg/dL Urine albumin measurement wi th detection limit of 20 mg/L or less (mass/volume)Ordered By: Kathryn Campbell on 08-15-2024 Albumin DL <= 20 mg/L (U) [Mass/Vol] < 12.0 mg/L NO RANGE EST. [facility] PT D/C Summary (1)on 025 PT D/C Summary (1) [facility] [address] [place] [address] / REHABILITATION SERVICES DISCHARGE SUMMARY MR#: [id number] Acct: [id number] Name: RADHA BINGHAM Rep #: [id number] : 1965 58 From: Onofre Pulido DPT, OCS, CSCS Referring DrAdolfo: LENY Cortes Status: RE G RCR Insurance: [facility] SELF PAY INSURANCE Discharge Summary D/C summary: [...] please feel free to call me at [phone]. Thank you for the referral of this patient. Sincerely, Onofre Pulido, DPT, OCS, CSCS Balance/Gait/Function al tests Balance/Special Test Scores Lower Extremity Functional Score: 59 Improvement % Improvement: 75 08/04/24 1011 CC: LENY Cortes; Dr. Naye Baldwin MD EBG Signed Normal [facility] Anion gap in Serum or Plasma Ordered By: Kathryn Campbell on 07-11-2024 Anion gap [Moles/Vol] 13 mmol/L 07-07 [facility] BUN/creatinine ratioOrdered By: Kathryn Campbell on 07-11-2024 Urea nitrogen/Creatinine [Mass ratio] 18.5 mg/mg 12-12 [facility] Basic Metabolic Profile (BMP )on 07-11-2024 BUN/CRE 18.5 RATIO Normal 12-12 [facility] Comment on above: Order Comment: Order Date: 07/11/24Order Info: 0667-1 - BMP Performed By: #### L 501.9985, L500.2500 ####[facility] [address] [place], [address] Calcium [Mass/Vol] 9.8 mg/dL Normal 7.6-11.0 [facility] Comment on above: Order Comment: Order Date: 07/11/24Order Info: 0667-1 - BMP Performed By: #### L 501.9985, L500.2500 ####[facility] [address] [place], [address] Chloride [Moles/Vol] 102 mmol/L Normal 98-108 [facility] Comment on above: Order Comment: Order Date: 07/11/24Order Info: 0667-1 - BMP Performed By: #### L 501.9985, L500.2500 ####[facility] [address] [place], [address] CO2 [Moles/Vol] 24.3 mmol/L Normal 21.0-32.0 [facility] Comment on above: Order Comment: Order Date: 07/11/24Order Info: 666-02 - BMP Performed By: #### L 501.9985, L500.2500 ####[facility] [address] [place], [address] Creatinine [Mass/Vol] 0.78 mg/dL Normal 0.70-1.20 [facility] Comment on above: Order Comment: Order Date: 07/11/24Order Info: 666- - BMP Performed By: #### L 501.9985, L500.2500 ####[facility] [address] [place], [address] GAP 13 Normal 5-15 [facility] Comment on above: Order Comment: Order Date: 07/11/24Order Info: 666-02 - BMP Performed By: #### L 501.9985, L500.2500 ####[facility] [address] [place], [address] GFR/1.73 sq M.predicted among non-blacks MDRD (S/P/Bld) [Vol rate/Area] 89 mL/min/{1.73_m2} Normal >60 [facility] Comment on above: Order Comment: Order Date: 07/11/24Order Info: 666- - BMP Result Comment: mL/m in/1.73m2 CKD-EPI Creatinine Equation (2020) Performed By: #### L 501.9985, L500.2500 ####[facility] [address] [place], [address] Glucose [Mass/Vol] 89 mg/dL Normal 70-99 [facility] Comment on above: Order Comment: Order Date: 07/11/24Order Info: 666- - BMP Performed By: #### L 501.9985, L500.2500 ####[facility] [address] [place], [address] Potassium [Moles/Vol] 4.1 mmol/L Normal 3.3-5.1 [facility] Comment on above: Order Comment: Order Date: 07/11/24Order Info: 0667 - BMP Performed By: #### L 501.9985, L500.2500 ####[facility] [address] [place], [address] Sodium [Moles/Vol] 139 mmol/L Normal 133-145 [facility] Comment on above: Order Comment: Order Date: 07/11/24Order Info: 666-02 - BMP Performed By: #### L 501.9985, L500.2500 ####[facility] [address] [place], [address] Urea nitrogen [Mass/Vol] 15 mg/dL Normal 4-19 [facility] Comment on above: Order Comment: Order Date: 07/11/24Order Info: 666-02 - BMP Performed By: #### L 501.9985, L500.2500 ####[facility] [address] [place], [address] Carbon dioxide, total [Moles /volume] in Central venous bloodOrdered By: Kathryn Campbell on 07-11-2024 CO2 [Moles/Vol] 24.3 mmol/L 21.0-32.0 [facility] Chloride assayOrdered By: Alli Campbell on 07-11-2024 Chloride [Moles/Vol] 102 mmol/L 98-108 [facility] Glomerular filtration rate ( GFR) estimation/1.73 sq m using serum, plasma, or whole bOrdered By: Kathryn Campbell on 07-11-2024 GFR/1.73 sq M.predicted among non-blacks MDRD (S/P/Bld) [Vol rate/Area] 89 mL/min/{1.73_m2} >60 [facility] Comment on above: mL/min/1.73m2 CKD-EP I Creatinine Equation (2020) Hemoglobin A1con 07-11-2024 HbA1c (Bld) [Mass fraction] 5.8 % High <=5.6 [facility] Comment on above: Order Comment: Order Date: 07/11/24Order Info: 4548-4 - A1C Result Comment: Norm al < 5.7 % Prediabetic 5.7 - 6.4 % Diabetic >or= 6.5 % Please note range changes. Performed By: #### L 501.9985, L500.2500 ####[facility] [address] [place], [address] Hemoglobin A1c percentageOrd ered By: Kathryn Campbell on 07-11-2024 HbA1c (Bld) [Mass fraction] 5.8 % High <5.7 [facility] Comment on above: Normal < 5.7 % Predi abetic 5.7 - 6.4 % Diabetic >or= 6.5 % Please note range changes. Potassium measurement (mass/ volume)Ordered By: Angie Adrian on 07-11-2024 Potassium (Unsp spec) [Mass/Vol] 4.1 mmol/L 3.3-5.1 [facility] Serum creatinine measurement (mass/volume)Ordered By: Kathrynheather Campbell on 07-11-2024 Creatinine [Mass/Vol] 0.78 mg/dL 0.70-1.20 [facility] Serum glucose measurement (m ass/volume)Ordered By: Kathrynheather Campbell on 07-11-2024 Glucose [Mass/Vol] 89 mg/dL 70-99 [facility] Serum or plasma calcium bibiana urement (mass/volume)Ordered By: Angie Adrian on 07-11-2024 Calcium [Mass/Vol] 9.8 mg/dL 7.6-11.0 [facility] Serum or plasma urea nitroge n measurement (mass/volume)Ordered By: Angie Adrian on 07-11-2024 Urea nitrogen [Mass/Vol] 15 mg/dL 4-19 [facility] Sodium levelOrdered By: Kathrynheather Campbell on 07-11-2024 Sodium [Moles/Vol] 139 mmol/L 133-145 [facility] Re-Evaluation - PT (1)on Re-Evaluation - PT (1) [facility] [address] [place] [address] / REEVALUATION / MEDICARE RECERTIFICATION PHYSICAL THERAPY MR#: [id number] Acct: [id number] Name: RADHA BINGHAM Rep #: [id number] : 1965 58 From: Onofre Pulido DPT, OCS, CSCS Referring Dr.: LENY Cortes Status:REG RCR Insurance: [facility] SELF PAY INSURANCE Re-Evaluation Intro: Dr. Winston [...] well without pain. Willing to continue at [employer] and via [facility]. Will see doctor next [...] Progress: Goal Met Goal 6:: return to [employer] (acquired by [employer]) fitness workout Goal Time Frame: 4-6 Weeks [...] do not hesitate to contact me at [phone] by phone or if you have questions or concerns regarding this new plan of care! Sincerely, Onofre Pulido DPT, OCS, CSCS 07/07/24 1054 CC: LENY Cortes; Dr. Naye Baldwin MD EBG Signed For Medicare only, by signing this I certify the plan of care. Physicians Signature Date Normal [facility] Inital Evaluation (1) - PTon 05-13-2024 Inital Evaluation (1) - PT [facility] [place] [address] [facility] [address] [place] [address] / REHABILITATION SERVICES INITIAL EVALUATION MR#: [id number] Acct: [id number] Name: RADHA BINGHAM Rep #: [id number] : 1965 58 From: Onofre Pulido DPT, OCS, CSCS Referring Dr.: Winston Cortes DPM Status: RE G RCR Insurance: [facility] SELF PAY INSURANCE Patient's Visit Information Visit [...] with OP all 2x/day, AROM all directions owyqb43g/day educated on walking with one crutch Pt [...] walking for fitness, sedentary, was going to [employer] prior to last November. Hopes to get [...] to be FAXED BACK to us at [phone] for Medicare purposes. For Medicare only, by signing this I certify the plan of care. Please let me know if there are questions or concerns regarding this plan of care. Physician Signature: (more content not included)... Normal [facility] Ankle min 3 Viewson 03-24-19 Ankle min 3 Views [facility] Imaging Services [address] [place], [place] [id number] [phone] Ankle min 3 Views MR#: [id number] Acct: [id number] Name: RADHA BINGHAM Rep #: [id number] : 1965 F 58 From: Enoc Porras MD PCP: Dr. Naye Baldwin MD Status: [facility] Study: Ankle min 3 Views Date of Exam: 03/24/24 Exam# [id number] Ordering Dr: Winston Cortes DPM PROCEDURE: ANKLE [...] 3 Views IMPRESSION: Postsurgical changes. Reading Location: [id number] CC: LENY Cortes; Dr. Naye Baldwin MD Dope Weigh Operator: Signed Normal [facility] Calcaneus min 2 Viewson 02-25 Calcaneus min 2 Views [facility] [address] [facility] [address] [place], [place] [id number] Calcaneus min 2 Views MR#: [id number] Acct: [id number] Name: RADHA BINGHAM Rep #: [id number] : 1965 F 58 From: Enoc Porras MD PCP: Dr. Naye Baldwin MD Status: REG [facility] Study: Calcaneus min 2 Views Date of Exam: 03/24/24 Exam# [id number] Ordering Dr: Winston Cortes DPM PROCEDURE: CALCANEUS MIN 2 VIEWS REASON FOR EXAM: Fluoroscopy. TECHNIQUE: Fluoroscopic views of the calcaneus. COMPARISON: None. FINDINGS: Fluoroscopic views of the calcaneus. No evidence of acute fracture. RAD/Calcaneus min 2 Views IMPRESSION: As above. Reading Location: [facility] CC: LENY Cortes; Dr. Naye Baldwin MD Dope Weigh Operator: Signed Normal [facility] Discharge Instructionon 02-25 Discharge Instruction [facility] Medical Records Department [address] [place] [address] Instructions for Home/Discharge Instructions 03/24/24 1235 MR#: [id number] Acct: [id number] Name: RADHA BINGHAM Rep #: [id number] : 1965 58 From: Winston Cortes DPM PCP: Dr. Naye Baldwin MD Status:REG [facility] Discharge Instructions Diet Discharge Diet: No restrictions [...] Care Provider: Naye Baldwin Instructions Print Language: Samoan Discharge Orders/Prescriptions Prescriptions: New doxycycline hyclate 100 [...] placed): Home, Self Care 03/24/241844 Winston Cortes DPM CC: Dr. Naye Baldwin MD Signed Normal [facility] MR/POSTOP.ANEon 03-24-2024 MR/POSTOP.[facility] Medical Records Department [address] [place] [address] Anesthesia Postop Eval I 03/24/24 181 MR#: [id number] Acct: [id number] Name: RADHA BINGHAM Rep #: [id number] : 1965 58 From: Cuco Carter MD PCP: Dr. Naye Baldwin MD Status:REG [facility] Y Race: C Location: [place] [address] Anesthesia: Postop Eval I Current Vital Signs [...] Anesthesia document: Postop Eval 1 completed: Yes 03/24/24 182 Date Cuco Carter MD Cosigner Signature: Date CC: Signed Normal [facility] MR/MGOCOUAM7iu 03-24-2024 /[facility] Medical Records Department [address] [place] [address] Anesthesia Postop Eval II 03/24/241955 MR#: [id number] Acct: [id number] Name: RADHA BINGHAM Rep #: [id number] : 1965 58 From: Cuco Carter MD PCP: Dr. Naye Baldwin MD Status:REG [place] Y Race: C Location: [place] [address] Anesthesia Postop Eval I Sum Postop Eval [...] MD Cosigner Signature: Date CC: Signed Normal [facility] Operative Reporton 5 Operative Report [facility] Medical Records Department [address] [place] [address] Operative Report 03/24/24 1850 MR#: [id number] Acct: [id number] Name: RADHA BINGHAM Rep #: [id number] : 1965 58 From: Winston Cortes DPM PCP: Dr. 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 Casey Pritchard, DPM PGY-2 Tasks completed by psychology assistant: Closing, Dissecting tissue and Implanting device Additional assistant professor of education?: No Type of Anesthesia: General/Regional (Popliteal block [...] was or (more content not included)... Normal [facility] Chest PA and Lateralon 03-16 Chest PA and Lateral [facility] Imaging Services [address] [place] [address] Chest PA and Lateral MR#: [id number] Acct: [id number] Name: RADHA BINGHAM Rep #: [id number] : 1965 F 58 From: Adrián winston DO PCP: Dr. Naye Baldwin MD Status: REG CLI Study: Chest PA and Lateral Date of Exam: 03/16/24 Exam# [id number] Ordering Dr: Naye Baldwin MD [id number] EXAM: XR CHEST, 2 VIEWS CLINICAL INDICATION: [...] EST , CC: Dr. Naye Baldwin MD Dope Weigh Operator: Signed Normal [facility] CBC W/Diff, Automatedon 02-24 Absolute Lymph 3.05 X10 3/uL Normal 0.83-4.51 [facility] Comment on above: Order Comment: Order Date: 03/14/24 Order Info: 0184-1 - CBCD Performed By: #### L 100.0100, L500.4050 #### [facility] [address] [place], [address] Absolute Neut 4.1 X10 3/uL Normal 2.0-7.7 [facility] Comment on above: Order Comment: Order Date: 03/14/24 Order Info: 0184-1 - CBCD Performed By: #### L 100.0100, L500.4050 #### [facility] [address] [place], [address] Basophils/100 WBC (Bld) 0.5 % Normal 0-1 [facility] Comment on above: Order Comment: Order Date: 03/14/24 Order Info: 0184-1 - CBCD Performed By: #### L 100.0100, L500.4050 #### [facility] [address] [place], [address] Eosinophils/100 WBC (Bld) 2.5 % Normal 0-5 [facility] Comment on above: Order Comment: Order Date: 03/14/24 Order Info: 0184-1 - CBCD Performed By: #### L 100.0100, L500.4050 #### [facility] [address] [place], [address] Erythrocyte distribution width (RBC) [Ratio] 12.8 % Normal 11.6-14.6 [facility] Comment on above: Order Comment: Order Date: 03/14/24 Order Info: 0184-1 - CBCD Performed By: #### L 100.0100, L500.4050 #### [facility] [address] [place], [address] Hematocrit (Bld) [Volume fraction] 40.9 % Normal 37-47 [facility] Comment on above: Order Comment: Order Date: 03/14/24 Order Info: 0184-1 - CBCD Performed By: #### L 100.0100, L500.4050 #### [facility] [address] [place], [address] Hemoglobin (Bld) [Mass/Vol] 13.8 g/dL Normal 12.0-15.0 [facility] Comment on above: Order Comment: Order Date: 03/14/24 Order Info: 0184-1 - CBCD Performed By: #### L 100.0100, L500.4050 #### [facility] [address] [place], [address] IG% 0.100 Normal 0.0-0.9 [facility] Comment on above: Order Comment: Order Date: 03/14/24 Order Info: 0184-1 - CBCD Result Comment: IG% - Immature Granulocytes (promyelocytes, myelocytes and metamyelocytes) > 1% indicates that a LEFT SHIFT is Present. Performed By: #### L 100.0100, L500.4050 #### [facility] [address] [place], [address] Lymphocytes/100 WBC (Bld) 38.3 % Normal 19-41 [facility] Comment on above: Order Comment: Order Date: 03/14/24 Order Info: 0184-1 - CBCD Performed By: #### L 100.0100, L500.4050 #### [facility] [address] [place], [address] MCH (RBC) [Entitic mass] 30.8 pg Normal 27.0-32.0 [facility] Comment on above: Order Comment: Order Date: 03/14/24 Order Info: 0184-1 - CBCD Performed By: #### L 100.0100, L500.4050 #### [facility] [address] [place], [address] MCHC (RBC) [Mass/Vol] 33.7 g/dL Normal 32-36 [facility] Comment on above: Order Comment: Order Date: 03/14/24 Order Info: 0184-1 - CBCD Performed By: #### L 100.0100, L500.4050 #### [facility] [address] [place], [address] MCV (RBC) [Entitic vol] 91.3 fL Normal 81-99 [facility] Comment on above: Order Comment: Order Date: 03/14/24 Order Info: 0184-1 - CBCD Performed By: #### L 100.0100, L500.4050 #### [facility] [address] [place], [address] Monocytes/100 WBC (Bld) 6.8 % Normal 0-10 [facility] Comment on above: Order Comment: Order Date: 03/14/24 Order Info: 0184-1 - CBCD Performed By: #### L 100.0100, L500.4050 #### [facility] [address] [place], [address] Neutrophils/100 WBC (Bld) 51.8 % Normal 47-70 [facility] Comment on above: Order Comment: Order Date: 03/14/24 Order Info: 0184-1 - CBCD Performed By: #### L 100.0100, L500.4050 #### [facility] [address] [place], [address] Nucleated RBC (Bld) [#/Vol] 0 10*3/uL Normal 0-5 [facility] Comment on above: Order Comment: Order Date: 03/14/24 Order Info: 0184-1 - CBCD Performed By: #### L 100.0100, L500.4050 #### [facility] [address] [place], [address] Platelet mean volume (Bld) [Entitic vol] 10.7 fL Normal 6.2-12.0 [facility] Comment on above: Order Comment: Order Date: 03/14/24 Order Info: 0184-1 - CBCD Performed By: #### L 100.0100, L500.4050 #### [facility] [address] [place], [address] Platelets (Bld) [#/Vol] 232 10*3/uL Normal 150-450 [facility] Comment on above: Order Comment: Order Date: 03/14/24 Order Info: 0184-1 - CBCD Performed By: #### L 100.0100, L500.4050 #### [facility] [address] [place], [address] RBC (Bld) [#/Vol] 4.48 10*6/uL Normal 4.2-5.4 [facility] Comment on above: Order Comment: Order Date: 03/14/24 Order Info: 0184-1 - CBCD Performed By: #### L 100.0100, L500.4050 #### [facility] [address] [place], [address] RDW SD 43.0 fl Normal 35.1-43.9 [facility] Comment on above: Order Comment: Order Date: 03/14/24 Order Info: 0184-1 - CBCD Performed By: #### L 100.0100, L500.4050 #### [facility] [address] [place], [address] WBC (Bld) [#/Vol] 8.0 10*3/uL Normal 4.4-11.0 [facility] Comment on above: Order Comment: Order Date: 03/14/24 Order Info: 0184-1 - CBCD Performed By: #### L 100.0100, L500.4050 #### [facility] [address] [place], [address] Comprehensive Metabolic Prof nhon 03-14-2024 Albumin [Mass/Vol] 3.8 g/dL Normal 3.2-5.0 [facility] Comment on above: Order Comment: Order Date: 03/14/24 Order Info: 0786-1 - CMP Performed By: #### L 100.0100, L500.4050 #### [facility] [address] [place], [address] Albumin/Globulin [Mass ratio] 1.1 {ratio} Normal 0.9-2.4 [facility] Comment on above: Order Comment: Order Date: 03/14/24 Order Info: 0786-1 - CMP Performed By: #### L 100.0100, L500.4050 #### [facility] [address] [place], [address] ALK P 96 U/L Normal 45-117 [facility] Comment on above: Order Comment: Order Date: 03/14/24 Order Info: 0786-1 - CMP Performed By: #### L 100.0100, L500.4050 #### [facility] [address] [place], [address] ALT [Catalytic activity/Vol] 26 U/L Normal 13-56 [facility] Comment on above: Order Comment: Order Date: 03/14/24 Order Info: 0786-1 - CMP Performed By: #### L 100.0100, L500.4050 #### [facility] [address] [place], [address] AST [Catalytic activity/Vol] 18 U/L Normal 15-37 [facility] Comment on above: Order Comment: Order Date: 03/14/24 Order Info: 0786-1 - CMP Performed By: #### L 100.0100, L500.4050 #### [facility] [address] [place], [address] Bilirubin [Mass/Vol] 0.30 mg/dL Normal 0.20-1.00 [facility] Comment on above: Order Comment: Order Date: 03/14/24 Order Info: 0786-1 - CMP Result Comment: For patients on eltrombopag therapy, use of Dimension [place] TBIL is not recommended. Performed By: #### L 100.0100, L500.4050 #### [facility] [address] [place], [address] BUN/CRE 21.9 RATIO High 10-20 [facility] Comment on above: Order Comment: Order Date: 03/14/24 Order Info: 0786-1 - CMP Performed By: #### L 100.0100, L500.4050 #### [facility] [address] [place], [address] CA,Total 9.5 mg/dL Normal 8.5-10.1 [facility] Comment on above: Order Comment: Order Date: 03/14/24 Order Info: 0786-1 - CMP Performed By: #### L 100.0100, L500.4050 #### [facility] [address] [place], [address] Chloride [Moles/Vol] 104 mmol/L Normal 98-107 [facility] Comment on above: Order Comment: Order Date: 03/14/24 Order Info: 0786-1 - CMP Performed By: #### L 100.0100, L500.4050 #### [facility] [address] [place], [address] CO2 [Moles/Vol] 28.0 mmol/L Normal 21.0-32.0 [facility] Comment on above: Order Comment: Order Date: 03/14/24 Order Info: 0786- - CMP Performed By: #### L 100.0100, L500.4050 #### [facility] [address] [place], [address] Creatinine [Mass/Vol] 0.91 mg/dL Normal 0.55-1.02 [facility] Comment on above: Order Comment: Order Date: 03/14/24 Order Info: 0786- - CMP Result Comment: The validity of the calculated GFR GFRAA in patients over 70 years has not been determined. Clinical correlation is essential. Performed By: #### L 100.0100, L500.4050 #### [facility] [address] [place], [address] EST GFR - AA 82 mL/min Normal >60 [facility] Comment on above: Order Comment: Order Date: 03/14/24 Order Info: 0786-1 - CMP Result Comment: Afri can [place] GFR Calc Performed By: #### L 100.0100, L500.4050 #### [facility] [address] [place], [address] GAP 6 Normal 5-15 [facility] Comment on above: Order Comment: Order Date: 03/14/24 Order Info: 0786-1 - CMP Performed By: #### L 100.0100, L500.4050 #### [facility] [address] [place], [address] GFR/1.73 sq M.predicted among non-blacks MDRD (S/P/Bld) [Vol rate/Area] 68 mL/min/{1.73_m2} Normal >60 [facility] Comment on above: Order Comment: Order Date: 03/14/24 Order Info: 0786-1 - CMP Result Comment: Non- GFR Calc Performed By: #### L 100.0100, L500.4050 #### [facility] [address] [place], [address] Globulin (S) [Mass/Vol] 3.5 g/dL Normal 2.2-4.2 [facility] Comment on above: Order Comment: Order Date: 03/14/24 Order Info: 0786-1 - CMP Performed By: #### L 100.0100, L500.4050 #### [facility] [address] [place], [address] Glucose [Mass/Vol] 103 mg/dL Normal 74-106 [facility] Comment on above: Order Comment: Order Date: 03/14/24 Order Info: 0786-1 - CMP Result Comment: Fast ing Glucose result from 100 to 125 mg/dL suggests IMPAIRED HOMEOSTASIS per A.D.A. criteria. Performed By: #### L 100.0100, L500.4050 #### [facility] [address] [place], [address] Potassium [Moles/Vol] 3.4 mmol/L Low 3.5-5.1 [facility] Comment on above: Order Comment: Order Date: 03/14/24 Order Info: 0786-1 - CMP Performed By: #### L 100.0100, L500.4050 #### [facility] [address] [place], [address] Sodium [Moles/Vol] 139 mmol/L Normal 136-145 [facility] Comment on above: Order Comment: Order Date: 03/14/24 Order Info: 0786-1 - CMP Performed By: #### L 100.0100, L500.4050 #### [facility] [address] [place], [address] T PROT 7.3 g/dL Normal 6.4-8.2 [facility] Comment on above: Order Comment: Order Date: 03/14/24 Order Info: 0786-1 - CMP Performed By: #### L 100.0100, L500.4050 #### [facility] [address] [place], [address] Urea nitrogen [Mass/Vol] 20 mg/dL High 7-18 [facility] Comment on above: Order Comment: Order Date: 03/14/24 Order Info: 0786-1 - CMP Performed By: #### L 100.0100, L500.4050 #### [facility] [address] [place], [address] Emergency Department Summary on 02-22-2024 Emergency Department Summary [facility] Medical Records Department [address] [place] [address] Emergency Department Summary 02/22/24 MR#: [id number] Acct: [id number] Name: RADHA BINGHAM Rep #: [id number] : 1965 58 From: Shaquille Montague DO PCP: Dr. Naye Baldwin MD Status:DEP [...] intact Psych: Cooperative, appropriate mood and [facility] Medical History HLD (hyperlipidemia) HTN (hypertension) Depression Home Medications ???Medication ???Instructions ???Recorded ???Last Taken ???Type amlodipine 2.5 mg tablet 2.5 mg PO QHS 06/20/15 Unknown History bupropion HCl 100 mg tablet 200 mg PO QHS 06/20/15 Unknown History hydrochlorothiazide 25 mg tablet 25 mg PO DAILY 06/20/15 Unknown History vfnfsjbrqsmq-Hu-rvpv- minerals 1 ea PO DAILY 06/20/15 Unknown [...] in triage. X-ray was personally reviewed by me, ED physician. No fracture or dislocation. Patient [...] 15:23 EST Reading Location ID and State: [facility] / [place] Tel , Service support , Discharge Plan Triage Chief Complaint: Lower Extremity Injury ED Provider: Shaquille Montague Dx/Rx/DC Orders Clinical Impression: Contusion of calf Instructions: ED Soft Tissue Contusion Prescriptions: No Action (more content not included)... Normal [facility] Tibia Fibula 2 Viewson 02-21 Tibia Fibula 2 Views [facility] Imaging Services [address] [place] [id number] Tibia Fibula 2 Views MR#: [id number] Acct: [id number] Name: RADHA BINGHAM Rep #: [id number] : 1965 F 58 From: Hardeep Quintana MD PCP: Dr. Naye Baldwin MD Status: PRE ER Study: Tibia Fibula 2 Views Date of Exam: 02/22/24 Exam# [id number] Ordering Dr: Shemar,Ed P. [id number] EXAM: XR LEFT TIBIA AND FIBULA, 2 [...] Dr. Naye Baldwin MD; ED PHYSICIAN PROVIDER Dope Weigh Operator: Signed Normal [facility] Emergency Department Summary on 01-08-2024 Emergency Department Summary [facility] Medical Records Department [address] [place] [address] Emergency Department Summary 01/08/24 MR#: [id number] Acct: [id number] Name: RADHA BINGHAM Rep #: [id number] : 1965 58 From: José Miguel Yang DO PCP: Dr. Nyae Baldwin MD Status:DEP ER Location: ED HPI History of Present Illness Chief Complaint: Neuro S/Sx Informant: patient Narrative Narrative: This is dictation for visit dated 12/09/2023 58-year-old female presenting to the emergency room with a chief complaint of left facial droop. Patient noted symptoms today at approximately 1130 hrs. [facility] Medical History HLD (hyperlipidemia) HTN (hypertension) Depression Home Medications ???Medication ???Instructions ???Recorded ???Last Taken ???Type amlodipine 2.5 mg tablet 2.5 mg PO QHS 06/20/15 Unknown History bupropion HCl 100 mg tablet 200 mg PO QHS 06/20/15 Unknown History hydrochlorothiazide 25 mg tablet 25 mg PO DAILY 06/20/15 Unknown History mdrkttfjbhjs-Kc-clcf- minerals 1 ea PO DAILY 06/20/15 Unknown [...] Qty: 2 (more content not included)... Normal [facility] Bedside Glucoseon 12-09-2023 FINGERSTICK GLU 116 mg/dL High 74-106 [facility] Comment on above: Result Comment: KT HIRSCH OF PATIENT CARE PER NURSING PROTOCOL Performed By: #### L 501.080 #### [facility] [address] [place], [place], [address] AST(SGOT)on 11-17-2023 AST [Catalytic activity/Vol] 18 U/L Normal 15-37 [facility] Comment on above: Order Comment: Order Date: 11/17/23Order Info: 666-02 - BMPOrder Info: - LIPIDOrder Info: 1919-09 - ASTOrder Info: 1741-07 - ALT Performed By: #### L 500.4100, L500.2500, L501.4100, L501.4405 ####[facility] [address] [place], [address] Alanine Aminotransferas (SGP T)on 11-17-2023 ALT [Catalytic activity/Vol] 24 U/L Normal 13-56 [facility] Comment on above: Order Comment: Order Date: 11/17/23Order Info: 666-02 - BMPOrder Info: - LIPIDOrder Info: 1919-09 - ASTOrder Info: 1741-07 - ALT Performed By: #### L 500.4100, L500.2500, L501.4100, L501.4405 ####[facility] [address] [place], [place], [address] Basic Metabolic Profile (BMP )on 11-17-2023 BUN/CRE 18.8 RATIO Normal 10-20 [facility] Comment on above: Order Comment: Order Date: 11/17/23 Order Info: 666-02 - BMP Order Info: - LIPID Order Info: 1919-09 - AST Order Info: 1741-07 - ALT Performed By: #### L 500.4100, L500.2500, L501.4100, L501.4405 #### [facility] [address] [place], [address] CA,Total 10.0 mg/dL Normal 8.5-10.1 [facility] Comment on above: Order Comment: Order Date: 11/17/23 Order Info: 666-02 - BMP Order Info: - LIPID Order Info: 1919-09 - AST Order Info: 1741-07 - ALT Performed By: #### L 500.4100, L500.2500, L501.4100, L501.4405 #### [facility] [address] [place], [address] Chloride [Moles/Vol] 104 mmol/L Normal 98-107 [facility] Comment on above: Order Comment: Order Date: 11/17/23 Order Info: 666-02 - BMP Order Info: [id number] - LIPID Order Info: 1919-09 - AST Order Info: 1741-07 - ALT Performed By: #### L 500.4100, L500.2500, L501.4100, L501.4405 #### [facility] [address] [place], [address] CO2 [Moles/Vol] 28.0 mmol/L Normal 21.0-32.0 [facility] Comment on above: Order Comment: Order Date: 11/17/23 Order Info: 666-02 - BMP Order Info: - LIPID Order Info: 1919-09 - AST Order Info: 1741-07 - ALT Performed By: #### L 500.4100, L500.2500, L501.4100, L501.4405 #### [facility] [address] [place], [address] Creatinine [Mass/Vol] 0.90 mg/dL Normal 0.55-1.02 [facility] Comment on above: Order Comment: Order Date: 11/17/23 Order Info: 666-02 - BMP Order Info: 21004-2 - LIPID Order Info: 1919-09 - AST Order Info: 1741-07 - ALT Result Comment: The validity of the calculated GFR GFRAA in patients over 70 years has not been determined. Clinical correlation is essential. Performed By: #### L 500.4100, L500.2500, L501.4100, L501.4405 #### [facility] [address] [place], [address] EST GFR - AA 83 mL/min Normal >60 [facility] Comment on above: Order Comment: Order Date: 11/17/23 Order Info: 666-02 - BMP Order Info: - LIPID Order Info: 1919-09 AST Order Info: 1741-07 - ALT Result Comment: Afri can [place] GFR Calc Performed By: #### L 500.4100, L500.2500, L501.4100, L501.4405 #### [facility] [address] [place], [address] GAP 4 Low 5-15 [facility] Comment on above: Order Comment: Order Date: 11/17/23 Order Info: 666-02 - BMP Order Info: - LIPID Order Info: 1919-09 AST Order Info: 1741-07 - ALT Performed By: #### L 500.4100, L500.2500, L501.4100, L501.4405 #### [facility] [address] [place], [address] GFR/1.73 sq M.predicted among non-blacks MDRD (S/P/Bld) [Vol rate/Area] 68 mL/min/{1.73_m2} Normal >60 [facility] Comment on above: Order Comment: Order Date: 11/17/23 Order Info: 666-02 - BMP Order Info: - LIPID Order Info: 1919-09 AST Order Info: 1741-07 - ALT Result Comment: Non- GFR Calc Performed By: #### L 500.4100, L500.2500, L501.4100, L501.4405 #### [facility] [address] [place], [address] Glucose [Mass/Vol] 97 mg/dL Normal 74-106 [facility] Comment on above: Order Comment: Order Date: 11/17/23 Order Info: 666-02 - BMP Order Info: - LIPID Order Info: 1919-09 AST Order Info: 1741-07 - ALT Performed By: #### L 500.4100, L500.2500, L501.4100, L501.4405 #### [facility] [address] [place], [address] Potassium [Moles/Vol] 3.9 mmol/L Normal 3.5-5.1 [facility] Comment on above: Order Comment: Order Date: 11/17/23 Order Info: 666-02 - BMP Order Info: - LIPID Order Info: 1919-09 - AST Order Info: 1741-07 - ALT Performed By: #### L 500.4100, L500.2500, L501.4100, L501.4405 #### [facility] [address] [place], [address] Sodium [Moles/Vol] 136 mmol/L Normal 136-145 [facility] Comment on above: Order Comment: Order Date: 11/17/23 Order Info: 666-02 - BMP Order Info: - LIPID Order Info: 1919-09 AST Order Info: 1741-07 - ALT Performed By: #### L 500.4100, L500.2500, L501.4100, L501.4405 #### [facility] [address] [place], [address] Urea nitrogen [Mass/Vol] 17 mg/dL Normal 7-18 [facility] Comment on above: Order Comment: Order Date: 11/17/23 Order Info: 666-02 - BMP Order Info: - LIPID Order Info: 1919-09 - AST Order Info: 1741-07 - ALT Performed By: #### L 500.4100, L500.2500, L501.4100, L501.4405 #### [facility] [address] [place], [address] Lipid Profileon 11-17-2023 Cholesterol [Mass/Vol] 161 mg/dL Normal 200 [facility] Comment on above: Order Comment: Order Date: 11/17/23 Order Info: 666-02 - BMP Order Info: - LIPID Order Info: 1919-09 AST Order Info: 1741-07 - ALT Result Comment: <200 mg/dL Desirable 200-240 mg/dL Borderline >240 mg/dL High Risk Performed By: #### L 500.4100, L500.2500, L501.4100, L501.4405 #### [facility] [address] [place], [address] Cholesterol in HDL [Mass/Vol] 62 mg/dL Normal [facility] Comment on above: Order Comment: Order Date: 11/17/23 Order Info: 666-02 - BMP Order Info: - LIPID Order Info: 1919-09 AST Order Info: 1741-07 - ALT Result Comment: The drugs N-Acetylcysteine and Metamizole may falsely depress this assay. Reference Range HDL <40 mg/dL Low HDL Cholesterol HDL >or= 60 mg/dL High HDL Cholesterol Performed By: #### L 500.4100, L500.2500, L501.4100, L501.4405 #### [facility] [address] [place], [address] Cholesterol in LDL [Mass/Vol] 66 mg/dL Normal 0-130 [facility] Comment on above: Order Comment: Order Date: 11/17/23 Order Info: 666-02 - BMP Order Info: - LIPID Order Info: 1919-09 AST Order Info: 1741-07 - ALT Performed By: #### L 500.4100, L500.2500, L501.4100, L501.4405 #### [facility] [address] [place], [address] Cholesterol in VLDL [Mass/Vol] 33 mg/dL Normal 5-40 [facility] Comment on above: Order Comment: Order Date: 11/17/23 Order Info: 666-02 - BMP Order Info: - LIPID Order Info: 1919-09 AST Order Info: 1741-07 - ALT Performed By: #### L 500.4100, L500.2500, L501.4100, L501.4405 #### [facility] [address] [place], [address] Triglyceride [Mass/Vol] 166 mg/dL Normal [facility] Comment on above: Order Comment: Order Date: 11/17/23 Order Info: 0667-1 - BMP Order Info: 16076-8 - LIPID Order Info: 1919-09 - AST Order Info: 1741-07 - ALT Result Comment: The drugs N-Acetylcysteine and Metamizole may falsely depress this assay. Serum Triglycerides Reference Interval Normal <150 mg/dL Borderline high 150 - 199 mg/dL High 200 - 499 mg/dL Very High > or = 500 mg/dL Performed By: #### L 500.4100, L500.2500, L501.4100, L501.4405 #### [facility] [address] [place], [address] Protein+Creatinine Ratio,Uri neon 11-17-2023 PROT:CRE RATIO 92 mg/g CRE Normal 0-200 [facility] Comment on above: Performed By: #### L 501.0900 #### [facility] [address] [place], [address] Protein (U) [Mass/Vol] 11.0 mg/dL Normal <11.9 [facility] Comment on above: Performed By: #### L 501.0900 #### [facility] [address] [place], [address] UR CREAT 120.00 mg/dL Normal NO RANGE EST. [facility] Comment on above: Performed By: #### L 501.0900 #### [facility] [address] [place], [address] PT D/C Summary (1)on 024 PT D/C Summary (1) [facility] [place] [address] / REHABILITATION SERVICES DISCHARGE SUMMARY MR#: [id number] Acct: [id number] Name: RADHA BINGHAM Rep #: [id number] : 1965 58 From: Steven Salcido PT, Cert. MD Causey, OCS Referring Dr.: Dr. Naye Baldwin MD Status: RE G RCR Insurance: [facility] PACKAGE PLAN Discharge Summary D/C summary: It [...] please feel free to call me at [phone]. Thank you for the referral of this patient. Sincerely, Steven Salcido, PT, Cert MDT, OCS Balance/Gait/Function al tests Balance/Special Test Scores Oswestry Low Back Score: 6 Improvement % Improvement: 60 09/25/23 1159 CC: Dr. Naye Baldwin MD WESLEY Signed Normal [facility] Basophil percentageOrdered B y: Dr. Baldwin on 05-05-2022 Chloride [Moles/Vol] 101 mmol/L 98-107 [facility] Glucose [Mass/Vol] 90 mg/dL 74-106 [facility] Potassium [Moles/Vol] 3.3 mmol/L 3.5-5.1 [facility] Sodium [Moles/Vol] 138 mmol/L 136-145 [facility] - Chemistry and C hemistry - challengeOrdered By: Dr. Baldwin on 05-05-2022 CO2 [Moles/Vol] 28.0 mmol/L 21.0-32.0 [facility] Urea nitrogen/Creatinine [Mass ratio] 17.1 mg/mg 10-20 [facility] No Panel InformationOrdered By: Dr. Baldwin on 05-05-2022 Estimated GFR (MDRD) Amer 94 mL/min >60 [facility] Comment on above: GFR Calc Estimated GFR (MDRD) Non-Af Amer 77 mL/min >60 [facility] Comment on above: Non- GFR Calc Serum or plasma calcium bibiana urement (mass/volume)Ordered By: Dr. Baldwin on 05-05-2022 Calcium [Mass/Vol] 9.4 mg/dL 8.5-10.1 [facility] Serum or plasma creatinine m easurement (mass/volume)Ordered By: Dr. Baldwin on 05-05-2022 Creatinine [Mass/Vol] 0.82 mg/dL 0.55-1.02 [facility] Comment on above: The validity of the calculated GFR & GFRAA in patients over 70 years has not been determined. Clinical correlation is essential. Serum or plasma urea nitroge n measurement (mass/volume)Ordered By: Dr. Baldwin on 05-05-2022 Urea nitrogen [Mass/Vol] 14 mg/dL 7-18 [facility] Thin prep Papanicolaou smear with manual screeningOrdered By: Dr. Baldwin on 05-05-2022 Thin prep Papanicolaou smear with manual screening 9 5-15 [facility] Absolute lymphocyte counton 11-01-2021 Lymphocytes Auto (Unsp spec) [#/Vol] 2.47 10*3/uL 0.83-4.51 [facility] Work Phone: Basophil percentageon 2021 Basophils/100 WBC (Bld) 0.6 % 0-1 [facility] Work Phone: Bilirubin [Mass/Vol] 0.30 mg/dL 0.20-1.00 [facility] Work Phone: Comment on above: For patients on eltr ombopag therapy, use of Dimension [place] TBIL is not recommended. Chloride [Moles/Vol] 102 mmol/L 98-107 [facility] Work Phone: Cholesterol [Mass/Vol] 150 mg/dL <200 [facility] Work Phone: Comment on above: <200 mg/dL Desirable 200-240 mg/dL Borderline >240 mg/dL High Risk Eosinophils/100 WBC (Bld) 1.9 % 0-5 [facility] Work Phone: Glucose [Mass/Vol] 90 mg/dL 74-106 [facility] Work Phone: Neutrophils (Bld) [#/Vol] 4.1 10*3/uL 2.0-7.7 [facility] Work Phone: Neutrophils/100 WBC (Bld) 56.4 % 47-70 [facility] Work Phone: Potassium [Moles/Vol] 3.7 mmol/L 3.5-5.1 [facility] Work Phone: Comment on above: Slight Hemolysis, Re sult may be falsely increased. Protein [Mass/Vol] 7.7 g/dL 6.4-8.2 [facility] Work Phone: Sodium [Moles/Vol] 138 mmol/L 136-145 [facility] Work Phone: Triglyceride [Mass/Vol] 235 mg/dL <199 [facility] Work Phone: Comment on above: The drugs N-Acetylcy steine and Metamizole may falsely depress this assay.Serum Triglycerides Reference Interval Normal <150 mg/dL Borderline high 150 - 199 mg/dL High 200 - 499 mg/dL Very High > or = 500 mg/dL WBC (Bld) [#/Vol] 7.2 10*3/uL 4.4-11.0 [facility]: Blood erythrocytes count (nu mber/volume)on 11-01-2021 RBC (Bld) [#/Vol] 4.71 10*6/uL 4.2-5.4 [facility]: Blood hemoglobin measurement (mass/volume)on 11-01-2021 Hemoglobin (Bld) [Mass/Vol] 14.1 g/dL 12.0-15.0 [facility] Work Phone: Blood lymphocytes/100 leukoc yteson 11-01-2021 Lymphocytes/100 WBC (Bld) 34.2 % 19-41 [facility] Work Phone: Blood monocytes/100 leukocyt eson 11-01-2021 Monocytes/100 WBC (Bld) 6.5 % 0-10 [facility] Work Phone: Blood platelet mean volumeon 11-01-2021 Platelet mean volume (Bld) [Entitic vol] 11.3 fL 6.2-12.0 [facility] Work Phone: Determination of erythrocyte mean corpuscular volume (MCV)on 11-01-2021 MCV (RBC) [Entitic vol] 90.7 fL 81-99 [facility] Work Phone: Erythrocyte sedimentation ra kaitlin 11-01-2021 ESR (Bld) [Velocity] 15 mm/h 0-30 [facility] Work Phone: Hematocrit Auto (Bld) [Volum e fraction]on 11-01-2021 Hematocrit (Bld) [Volume fraction] 42.7 % 37-47 [facility] Work Phone: Laboratory - Chemistry and C hemistry - challengeon 11-01-2021 ALP [Catalytic activity/Vol] 100 U/L 45-117 [facility] Work Phone: ALT [Catalytic activity/Vol] 29 U/L 13-56 [facility] Work Phone: CO2 [Moles/Vol] 27.0 mmol/L 21.0-32.0 [facility] Work Phone: Globulin (S) [Mass/Vol] 3.8 g/dL 2.2-4.2 [facility] Work Phone: Urea nitrogen/Creatinine [Mass ratio] 17.2 mg/mg 10-20 [facility] Work Phone: Laboratory - Hematology and Cell countson 11-01-2021 Erythrocyte distribution width (RBC) [Entitic vol] 42.9 fL 35.1-43.9 [facility] Work Phone: Erythrocyte distribution width (RBC) [Ratio] 13.0 % 11.6-14.6 [facility] Work Phone: Immature granulocytes/100 WBC (Bld) 0.400 % 0.0-0.9 [facility] Work Phone: Comment on above: IG% - Immature Granu locytes (promyelocytes, myelocytes and metamyelocytes) > 1% indicates that a LEFT SHIFT is Present. MCH (RBC) [Entitic mass] 29.9 pg 27.0-32.0 [facility] Work Phone: Nucleated RBC/100 WBC (Bld) [Ratio] 0 % 0-5 [facility] Work Phone: MCHC Auto (RBC) [Mass/Vol]on 11-01-2021 MCHC (RBC) [Mass/Vol] 33.0 g/dL 32-36 [facility] Work Phone: No Panel Informationon 11-01 Estimated GFR (MDRD) Amer 87 mL/min >60 [facility] Work Phone: Comment on above: GFR Calc Estimated GFR (MDRD) Non-Af Amer 72 mL/min >60 [facility] Work Phone: Comment on above: Non- GFR Calc Thyroid Stimulating Hormone (TSH) 1.23 uIU/mL 0.358-3.74 [facility] Work Phone: Platelets bldon 11-01-2021 Platelets (Bld) [#/Vol] 242 10*3/uL 150-450 [facility] Work Phone: Serum or plasma albumin bibiana urement (mass/volume)on 11-01-2021 Albumin [Mass/Vol] 3.9 g/dL 3.2-5.0 [facility] Work Phone: Serum or plasma albumin/glob ulin mass ratioon 11-01-2021 Albumin/Globulin [Mass ratio] 1.0 {ratio} 0.9-2.4 [facility] Work Phone: Serum or plasma calcium bibiana urement (mass/volume)on 11-01-2021 Calcium [Mass/Vol] 9.1 mg/dL 8.5-10.1 [facility] Work Phone: Serum or plasma cholesterol in HDL measurement (mass/volume)on 11-01-2021 Cholesterol in HDL [Mass/Vol] 54 mg/dL >40 [facility] Work Phone: Comment on above: The drugs N-Acetylcy steine and Metamizole may falsely depress this assay. Reference Range HDL <40 mg/dL Low HDL Cholesterol HDL >or= 60 mg/dL High HDL Cholesterol Serum or plasma cholesterol in VLDL measurement (mass/volume)on 11-01-2021 Cholesterol in VLDL [Mass/Vol] 47 mg/dL 5-40 [facility] Work Phone: Serum or plasma creatinine m easurement (mass/volume)on 11-01-2021 Creatinine [Mass/Vol] 0.87 mg/dL 0.55-1.02 [facility] Work Phone: Comment on above: The validity of the calculated GFR & GFRAA in patients over 70 years has not been determined. Clinical correlation is essential. Serum or plasma low density lipoprotein (LDL) cholesterol measurement (mass/volume)on 11-01-2021 Cholesterol in LDL [Mass/Vol] 49 mg/dL 0-130 [facility] Phone: Serum or plasma urea nitroge n measurement (mass/volume)on 11-01-2021 Urea nitrogen [Mass/Vol] 15 mg/dL 7-18 [facility] Work Phone: Thin prep Papanicolaou smear with manual screeningon 11-01-2021 Thin prep Papanicolaou smear with manual screening 19 U/L 15-37 [facility] Work Phone: Comment on above: Slight Hemolysis, Re sult may be falsely increased. Thin prep Papanicolaou smear with manual screening 9 5-15 [facility] Work Phone: Basophil percentageon 2021 Chloride [Moles/Vol] 101 mmol/L 98-107 [facility] Work Phone: Glucose [Mass/Vol] 98 mg/dL 74-106 [facility] Work Phone: Potassium [Moles/Vol] 3.4 mmol/L 3.5-5.1 [facility] Work Phone: Sodium [Moles/Vol] 136 mmol/L 136-145 [facility] Work Phone: Laboratory - Chemistry and C hemistry - challengeon 05-01-2021 CO2 [Moles/Vol] 26.0 mmol/L 21.0-32.0 [facility] Work Phone: Urea nitrogen/Creatinine [Mass ratio] 20.4 mg/mg 10-20 [facility] Work Phone: No Panel Informationon 05-01 Estimated GFR (MDRD) Amer 92 mL/min >60 [facility] Work Phone: Comment on above: GFR Calc Estimated GFR (MDRD) Non-Af Amer 76 mL/min >60 [facility] Work Phone: Comment on above: Non- GFR Calc Serum or plasma calcium bibiana urement (mass/volume)on 05-01-2021 Calcium [Mass/Vol] 9.3 mg/dL 8.5-10.1 [facility] Work Phone: Serum or plasma creatinine m easurement (mass/volume)on 05-01-2021 Creatinine [Mass/Vol] 0.83 mg/dL 0.55-1.02 [facility] Work Phone: Comment on above: The validity of the calculated GFR & GFRAA in patients over 70 years has not been determined. Clinical correlation is essential. Serum or plasma urea nitroge n measurement (mass/volume)on 05-01-2021 Urea nitrogen [Mass/Vol] 17 mg/dL 7-18 [facility] Work Phone: Thin prep Papanicolaou smear with manual screeningon 05-01-2021 Thin prep Papanicolaou smear with manual screening 9 5-15 [facility] Work Phone: Vital Signs Date Time Vital Sign Value Performing Clinician Faci lity 12-20-2021 14:19-0400 Diastolic blood pressure 81 mm[Hg] [facility] Work Phone: 12-20-2021 14:19-0400 Heart rate 64 /min [facility] Work Phone: 12-20-2021 14:19-0400 Respiratory rate 14 /min [facility] Work Phone: 12-20-2021 14:19-0400 SaO2% (BldA) [Mass fraction] 100 % [facility] Work Phone: 12-20-2021 14:19-0400 Systolic blood pressure 120 mm[Hg] [facility] Work Phone: 12-20-2021 12:02-0400 Body height 175.[address] [facility] Work Phone: 12-20-2021 12:02-0400 Body mass index (BMI) [Ratio] 33 kg/m2 [facility] Work Phone: 12-20-2021 12:02-0400 Body temperature 96.7 [degF] [facility] Work Phone: 12-20-2021 12:020400 Body weight 101.[address] [facility] Work Phone: Encounters Encounter Date Encounter Type Care Provider Facility Start: 09-08-2024 End: 09-08-2024 ambulatory Kathryn Adrian [employer] Work Phone: -Laboratory Specimen Start: 09-08-2024 End: 09-08-[address] Edgar Vargas MD -Laboratory Specimen Work Phone: Start: 09-08-2024 End: 09-08-2024 ambulatory Kathryn Adrian [employer] Facility:[facility] Start: 08-15-2024 End: 08-15-2024 ambulatory Kathryn Adrian [employer] Work Phone: -Laboratory Clarissa Ruvalcaba Start: 08-15-2024 End: 08-15-2024 Patient encounter procedure Kathrynheather Campbell [employer] -Laboratory [facility] Start: 08-15-2024 End: 08-15-2024 ambulatory Kathryn Adrian [employer] Facility:[facility] Start: 08-04-2024 End: 08-04-2024 ambulatory Kathryn Adrian [employer] Work Phone: [facility] Work Phone: Start: 08-04-2024 End: 08-04-2024 Discharged Recurring Winston Cortes DPM -Physical Therapy Work Phone: Start: 07-11-2024 End: 07-11-2024 Patient encounter procedure Kathrynheather Freirener [employer] -Laboratory [facility] Start: 07-11-2024 End: 07-11-2024 ambulatory Kathryn Adrian [employer] Facility:[facility] Start: 04-07-2024 Encounter for other preprocedural examination Naye Baldwin [facility] Start: 03-24-2024 End: 03-24-2024 ambulatory Naye Baldwin Facility:[facility] Start: 03-16-2024 End: 03-16-2024 ambulatory Naye Baldwin Facility:[facility] Start: 02-22-2024 End: 02-22-2024 Emergency department patient visit Shaquille Montague Facility:[facility] Start: 12-09-2023 End: 12-09-2023 Emergency department patient visit Naye Badlwin Facility:[facility] Start: 11-17-2023 End: 11-17-2023 ambulatory Naye Baldwin Facility:[facility] Start: 08-04-2022 End: 08-04-2022 ambulatory [facility] Work Phone: Start: 08-04-2022 End: 08-04-2022 Patient encounter procedure [facility] Start: 05-05-2022 End: 05-05-2022 Patient encounter procedure [facility] Start: 12-20-2021 End: 12-20-2021 Emergency department patient visit [facility] Start: 11-01-2021 End: 11-01-2021 ambulatory [facility] Work Phone: Start: 11-01-2021 End: 11-01-2021 Patient encounter procedure [facility] Start: 08-07-2021 End: 08-07-2021 Patient encounter procedure [facility] Start: 08-02-2021 End: 08-02-2021 Patient encounter procedure [facility] Start: 05-01-2021 End: 05-01-2021 Patient encounter procedure [facility] Procedures Date Procedure Procedure Detail Performing Clinician Start: 09-08-2024 Urine culture Kathryn Rosado er [employer] Work Phone: Start: 08-04-2022 Screening mammography Start: 12-20-2021 CT of face Start: 12-20-2021 CT of head without contrast Start: 08-07-2021 Mammography Start: 08-07-2021 Ultrasonography of breast Start: 08-02-2021 Screening mammography Plan of Treatment Date Care Activity Detail Author Start: 09-28-2024 ambulatory Ambulatory Facility:[facility] Patient Education ED Facial Cont usion ED Head Injury (Adult) [facility] Work Phone: Patient referral [facility] Work Phone: Immunizations Immunization Date Immunization Notes Care Provider Lola mathews 12-20-2021 tetanus toxoid, redu raymundo diphtheria toxoid, and acellular pertussis vaccine, adsorbed [facility] 12-17-2015 Influenza virus vaccine [facility] Payers Date Payer Category Payer Self-pay [id number] 2014 Unknown [id number] Private Health Insurance [id number] Unknown [id number] Unknown [id number] 2.16.8 [id number] Unknown [id number] 2.16.8 [id number] Unknown [id number] 2.16.8 [id number] Unknown [id number] 2.16.8 [id number] Unknown [id number] 2.16.8 [id number] Unknown [id number] 2.16.8 [id number] Unknown [id number] 2.16.8 [id number] Unknown [id number] 2.16.8 [id number] Unknown [id number] 2.16.8 [id number] Unknown [id number] 2.16.8 [id number] Social History Date Type Detail Facility Start: 02-26-2021 End: 12-20-2021 Tobacco smoking status NHIS Unknown if ever smoked [facility] Start: 1965 Sex Assigned At Female [facility] Start: 03-15-2024 Tobacco smoking stat us NHIS Never smoked tobacco (finding) [facility] Medical Equipment Procedure Code Equipment Code Equipment Origin al Text Equipment Identifier Dates Repair, tendon, Achilles decellularized dermis Other codes (Q4125, C1762, L8699) per [facility] FDA Start: 03-24-2024 Repair, tendon, Achilles pars achilles speedbridge FDA Start: 03-24-2024 Repair, tendon, Achilles Bioabsorbable orthopaedic bone screw [id number] FDA Start: 03-24-2024 Repair, tendon, Achilles decellularized dermis Other codes (Q4125, C1762, L8699) per [facility] FDA Start: 03-24-2024 Repair, tendon, Achilles pars achilles speedbridge FDA Start: 03-24-2024 Repair, tendon, Achilles decellularized dermis Other codes (Q4125, C1762, L8699) per [facility] FDA Start: 03-24-2024 Repair, tendon, Achilles pars achilles speedbridge FDA Start: 03-24-2024 Discharge summary 08-04-2024 Note Date & Type Note Facility 08-04-2024 Discharge summary Note Date/Time August 04, 2024 7:00 pm [facility] Physical Therapy [facility] [address] [place] [address] [address] [place] [address] / REHABIL[facility]ATION SERVICES DISCHARGE SUMMARY MR#: [id number] Acct: [id number] Name: RADHA BINGHAM Rep #: [id number] : 1965 58 From: Onofre BALDERAST, OCS, CSCS Referring DrAdolfo: LENY Cortes Status: REG RCR Insurance: [facility] SELF PAY INSURANCE Discharge Summary D/C summary: [...] please feel free to call me at [phone]. Thank you for the referral of thispatient. Sincerely, Onofre Pulido DPT, OCS, CSCS Balance/Gait/Functional tests Balance/Special Test Scores Lower Extremity Functional Score: 59 Improvement % Improvement: 75 <Electronically signed by Onofre Pulido DPT, OCS, CSCS> 08/04/24 1011 CC: LENY Cortes; Dr. Naye Baldwin MD ~ EBG Signed [facility] Work Phone: Discharge summary 08-04-2024 Note Date & Type Note Facility 08-04-2024 Discharge summary [facility] Evaluation note Note Date & Type Note Facility Evaluation note No assessment information availa ble [facility] Work Phone: Reason for referral (narrative) Note Date & Type Note Facility Reason for referral (narrative) No reason for referral information available [facility] Work Phone: Chief Complaint and Reason for [...] No June 16, 2016 12:45pm Power of Director Of Investigations No June 16 12:45pm Advance Directive Response Recorded Date/ Time Advance Directives No July 15 6 11:54am Living Will No December 20 12:11pm Power of Director Of Investigations No December 20, 2021 12:11pm Advance Directive Response Recorded Date/ Time Advance Directives No July 15 6 11:54am Summary Purpose Family History No Family [...] Active Member Role Status Dates Kathryn Campbell [employer], [employer] Primary Care Provider Active Team Status: Inactive Member Role Status Dates Kathryn Campbell [employer], [employer] Primary Care Provider Active Start: July 11, 2024 End: July 11, 2024 Kathryn Campbell [employer], [employer] Attending Provider Active S tart: July 11, 2024 End: July 11, 2024 Kathryn Campbell [employer], [employer] Referring Provider Active S tart: July 11, 2024 End: July 11, 2024 Team Status: Inactive Member Role Status Dates Dr. Naye Baldwin MD Primary Care Provider Active Start: August 04, 2024 End: August 04, 2024 Dr. Winston Cortes DPM Attending Provider Active Start: August 04, 2024 End: August 04, 2024 Team Status: Active Member Role/Relationship Status Dates Kathryn Campbell [employer], [employer] Primary Care Provider Active Team Status: Inactive Member Role/Relationship Status Dates Kathrynheather Campbell [employer], [employer] Primary Care Provider Active Start: July 11, 2024 End: July 11, 2024 Kathrynheather Campbell [employer], [employer] Attending Provider Active S tart: July 11, 2024 End: July 11, 2024 Kathrynheather Campbell [employer], [employer] Referring Provider Active S tart: July 11, 2024 End: July 11, 2024 Team Status: Inactive Member Role/Relationship Status Dates Dr. Naye Baldwin MD Primary Care Provider Active Start: August 04, 2024 End: August 04, 2024 Dr. Winston Cortes DPM Attending Provider Active Start: August 04, 2024 End: August 04, 2024 Team Status: Inactive Member Role/Relationship Status Dates Kathryn Campbell [employer], [employer] Primary Care Provider Active Start: August 15, 2024 End: August 15, 2024 Kathrynheather Campbell [employer], [employer] Attending Provider Active S tart: August 15, 2024 End: August 15, 2024 Team Status: Inactive Member Role/Relationship Status Dates Kathrynheather Campbell [employer], [employer] Primary Care Provider Active Start: September 08, 2024 End: September 08, 2024 Dr. Edgar Vargas MD Attending Provider Active Start: September 08, 2024 End: September 08, 2024 INFORMATION SOURCE (unrecogn ized section and content) DATE CREATED AUTHOR 09/15/2024 [facility] FOR RECORDS PERTAINING TO PATIENTS WHO [...] BE BASED ON THE PRIMARY CLINICAL RECORDS. [facility] [employer] [facility]. provides no warranty or guarantee of the accuracy or completeness of information in this document.
== END | disposition home or self-care (01) ==
PROVIDERS: PCP Nurse Practitioner Family; Referring Provider Nurse Practitioner Family; Visit Provider Nurse Practitioner Family
DX: Z12.31 Encounter for screening mammogram for malignant neoplasm of breast (principal); Z78.0 Asymptomatic menopausal state; Z13.820 Encounter for screening for osteoporosis
CPT/HCPCS: 77063; 77067; 77080